=== PATIENT | female | born 1975 | race Caucasian/White ===

== ENCOUNTER → 2018-08-17 14:51 | Outpatient (CLI) | payer MEDICAID, SELFPAY ==
[2018-08-21 08:29] LABS: HPV APTIMA, High Risk Negative (Negative)
== END ==
PROVIDERS: Visit Provider Obstetrics & Gynecology
DX: Z12.4 Encounter for screening for malignant neoplasm of cervix (principal)
CPT/HCPCS: 88175; G0145

== ENCOUNTER 2018-11-06 23:19 | Emergency (ER) | payer MEDICAID, SELFPAY ==
[2018-11-06 23:21] VITALS: BP 165/93; PULSE 95; RESP 18; TEMP 36.7; O2SAT 98; BMI 30.9
--- NOTE | 2018-11-06 23:28 | CT_ITS ---
HISTORY: PT STATED RT FLANK PAIN, HX OF KIDNEY STONES TECHNIQUE: Helically acquired images were obtained of the abdomen and pelvis without oral or IV contrast as per renal stone protocol. A radiation dose optimization technique was used for this scan. IV Contrast dosage and agent: None. Oral contrast: None. COMPARISON: None FINDINGS: # of images incl. paperwork: [id number] LOWER CHEST: Lung bases are clear. No cardiomegaly or pericardial effusion observed. LIVER: Homogeneous. No focal mass. GALLBLADDER AND BILIARY TREE: No calcified gallstones. There is no gallbladder distension or wall edema. No intra- or extrahepatic biliary ductal dilation. KIDNEYS AND URETERS: Normal renal size and position. There is no hydronephrosis. 2 small (2 mm) nonobstructing stones lower pole left kidney. No other renal stones. ADRENAL GLANDS: Non-enlarged. SPLEEN: Normal size without focal cystic or solid mass. PANCREAS: No focal cystic or solid mass. BOWEL: No stomach or bowel distension. No focal inflammatory change observed. Normal appendix. Prominent stool. LYMPH NODES: No enlarged mesenteric or retroperitoneal lymph nodes. PERITONEUM: No ascites or free air. No other fluid collection. VESSELS: Aorta is non-dilated. URINARY BLADDER: Incompletely distended, otherwise grossly unremarkable. REPRODUCTIVE ORGANS: Uterus and ovaries with unremarkable noncontrast CT appearance. Physiologic ovarian cysts, greater on the left. ABDOMINAL WALL: No discrete abdominal or pelvic wall hernia observed. BONES: No lytic or blastic abnormality observed. CT/Abdomen/Pelvis without Cont IMPRESSION: No acute findings. Small nonobstructing left renal stones. Prominent stool, please correlate for constipation. Individualized dose optimization techniques were used for this CT. at 0023 Reported and signed by: Wallace Delcid MD Electronically Signed: Wallace Delcid, at 0:22 EST Tel , Service support ,
--- NOTE | 2018-11-06 23:35 | ED.VISSUMM ---
- ER Visit Summary Date of Service: 11/06/18 Chief Complaint: Flank pain History of Present Illness: The patient is a 43 F with remote history of kidney stone presents to the emergency department flank pain. Patient states that she had a dull ache in her right back this morning. She states throughout the day it worsens. It has been rather constant over the past 30 minutes. She has been nauseated without vomiting. She is never required lithotripsy or stenting. She denies any hematuria, dysuria, or trouble urinating. She denies any fevers or chills. Physical Examination: Vital signs reviewed General: Well-nourished, well-developed Head: Normocephalic, atraumatic Eyes: Pupils equal and reactive, extraocular muscles intact Neck, supple, no lymphadenopathy Heart: Regular rate and rhythm Respiratory: No distress, clear bilaterally Abdomen: Soft, nontender, nondistended, no peritoneal signs Back: Nontender Extremities: Nontender, no edema, no cords Skin: Normal color no rash Neuro: Alert and oriented, no focal or lateralizing deficits Test Results: [] Emergency Department Course and Treatment: The patient presents with right-sided flank pain has a history of kidney stones. IV was established. She was initially was given fluids, antiemetics, and anti-inflammatories. She still had persistent pain. Her pain was redressed and she was feeling improved. Screening labs are unremarkable. CT does not show any definitive stone within the ureter, no evidence of hydronephrosis, and no fluid. She does have some small stones still within the kidney. Her urine does show evidence of infection. My suspicion is that she is likely an early pyelonephritis. She has not had fever or chills. Her urine will be cultured. Given antibiotic allergies, the patient will be started on Cipro. She is given her first dose here. I do feel that she is safe for outpatient therapy. She will be continued on antibiotics and analgesics. She was counseled on concerning symptoms and reasons to return. I did instruct her that she needs to be reevaluated within 48 hours if she is not improving she needs to return to the emergency department. She is comfortable with this plan of care and will be discharged. Treatment Plan: [] Disposition: Discharge Impression: Pyelonephritis This note was generated with [employer] software. It may contain incorrect words, spelling, and punctuation that were not noted in review of the chart prior to signing ED Disposition - Plan for ED Patient: Instructions: ED Kidney Infec Female Prescriptions: Hydrocodone Bitart/Apap 5-325 [[place] 5MG-325MG] 1 tab PO Q4H PRN PRN 2 Days #10 tab PRN Reason: Pain Ciprofloxacin [Cipro] 500 mg PO BID #14 tab Referrals: NOT,DEFINED [NON-STAFF] -
[2018-11-06] MEDS: 0.9% Normal Saline 1,000 ML 1000 ML IV (23:38)
[2018-11-06] MEDS: Ketorolac 30 MG/ML Syringe IV (23:38)
[2018-11-06] MEDS: Ondansetron 4 MG/2 ML Vial IV (23:38)
[2018-11-07 00:16] LABS: Anion Gap 10 (5-15); BUN 13 mg/dL (7-18); BUN/Creat Ratio 17.6 RATIO (10-20); Calcium,Total 8.5 mg/dL (8.5-10.1); Chloride 105 mmol/L (98-107); Creatinine, Serum 0.74 mg/dL (0.55-1.02); EST Glomerular Filtration Rate 92 mL/min (>60); Est Glom Filt Rate - Afr Amer 111 mL/min (>60); Estimated Creatinine Clearance 81.92 ml/min; Glucose 144 mg/dL (74-106); Potassium 3.9 mmol/L (3.5-5.1); Sodium Level 137 mmol/L (136-145)
[2018-11-07 00:17] LABS: Hematocrit 40.4 % (37-47); Hemoglobin 13.6 g/dl (12.0-15.0); Mean Corpuscular Volume 90.6 fL (81-99); Red Blood Count 4.46 M/mm3 (4.2-5.4); White Blood Count 10.3 K/mm3 (4.4-11.0)
[2018-11-07 00:18] LABS: Lymphocyte % 31.9 % (19-41); Mean Corp Hgb Conc 33.7 g/gl (32-36); Mean Corpuscular Hgb 30.5 pg (27.0-32.0); Mean Platelet Vol. 9.3 fl (6.2-12.0); Neutrophil % 60.4 % (47-70); POSITIVE COUNT NO; POSITIVE DIFFERENTIAL NO; POSITIVE MORPHOLOGY NO; Platelet Count 284 K/mm3 (150-450); RBC Distribution Width CV 13.7 % (11.6-14.6); RBC Distribution Width SD 44.9 fl (35.1-43.9)
[2018-11-07 00:19] LABS: Absolute Lymphocyte Count 3.29 X10^3/ul (0.83-4.51); Absolute Neutrophil Count 6.2 X10^3/uL (2.0-7.7); Basophil# 0.02 X10^3/uL; Basophil% 0.2 % (0-1); Eosinophil# 0.14 X10^3/uL; Eosinophils% 1.4 % (0-5); Lymphocyte # 3.29 X10^3/ul (4.0); Monocyte% 5.8 % (0-10); Neutrophil # 6.22 X10^3/uL (2.7-7.7)
[2018-11-07] MEDS: Morphine 4 MG/ML Syringe IV (00:24)
[2018-11-07 00:44] LABS: Mucous, Urine 0 SEEN /hpf (<or=2+)
[2018-11-07 00:46] LABS: Color, Urine Yellow (Yellow); Glucose, Dipstick Normal (Normal); Ketone-Dipstick Negative (Negative); Leukocyte Esterase-Dipstick 500 /ul (Negative); Nitrite-Dipstick Positive (Negative); Occult Blood-Urine 25 /ul (Negative); Protein-Dipstick Negative (Negative); Urine Bilirubin Dipstick Negative (Negative); Urine Clarity Cloudy (Clear); Urine Urobilinogen Normal (Normal)
[2018-11-07 00:59] LABS: Bacteria 2+ /hpf (None Seen); Red Blood Cells-Urine 0-5 SEEN /hpf (0-5); Squamous Epithelial Cells - UA 10-25 SEEN /hpf (5-10); White Blood Cells 25-50 SEEN /hpf (0-5)
[2018-11-07] MEDS: HYDROmorphone 1 MG/ML Syringe IV (01:01)
[2018-11-07] MEDS: Ciprofloxacin 400 MG/200 ML BAG 200 MG IV (01:05)
[2018-11-07 02:52] VITALS: BP 140/96; PULSE 82; RESP 16; O2SAT 97
== END 2018-11-07 02:52 | disposition home or self-care (01) ==
LOC: ED 23:44
PROVIDERS: Emergency Provider Emergency Medicine
DX: N12 Tubulo-interstitial nephritis, not specified as acute or chronic (principal); F32.9 Major depressive disorder, single episode, unspecified; Z87.442 Personal history of urinary calculi; Z72.0 Tobacco use
CPT/HCPCS: 74176; 80048; 81001; 85025; 87086; 87088; 87186; 96361; 96365; 96375; 99284; J7030; A4216; J0744; J2405

== ENCOUNTER 2018-11-14 00:17 | Emergency (ER) | payer MEDICAID, SELFPAY ==
[2018-11-14 00:20] VITALS: BP 171/99; PULSE 82; RESP 20; TEMP 36.7; O2SAT 97; BMI 31.4
[2018-11-14 00:48] VITALS: BP 171/99; PULSE 82; RESP 20; TEMP 36.7; O2SAT 97
[2018-11-14] MEDS: Ketorolac 30 MG/ML Syringe IV (01:00)
[2018-11-14] MEDS: 0.9% Normal Saline 1,000 ML 1000 ML IV (01:00)
[2018-11-14] MEDS: Ondansetron 4 MG/2 ML Vial IV (01:00)
[2018-11-14] MEDS: Morphine 4 MG/ML Syringe IV (01:00)
[2018-11-14 01:10] LABS: Absolute Lymphocyte Count 3.54 X10^3/ul (0.83-4.51); Absolute Neutrophil Count 6.6 X10^3/uL (2.0-7.7); Basophil# 0.02 X10^3/uL; Basophil% 0.2 % (0-1); Eosinophil# 0.15 X10^3/uL; Eosinophils% 1.4 % (0-5); Hemoglobin 13.2 g/dl (12.0-15.0); Lymphocyte # 3.54 X10^3/ul (4.0); Mean Corpuscular Hgb 29.9 pg (27.0-32.0); Mean Corpuscular Volume 90.7 fL (81-99); Monocyte# 0.44 X10^3/uL; Monocyte% 4.1 % (0-10); Neutrophil # 6.55 X10^3/uL (2.7-7.7); Neutrophil % 61.1 % (47-70); Platelet Count 251 K/mm3 (150-450); RBC Distribution Width CV 13.9 % (11.6-14.6); RBC Distribution Width SD 46.4 fl (35.1-43.9); Red Blood Count 4.41 M/mm3 (4.2-5.4); White Blood Count 10.7 K/mm3 (4.4-11.0)
[2018-11-14 01:19] LABS: Anion Gap 7 (5-15); BUN 20 mg/dL (7-18); BUN/Creat Ratio 26.8 RATIO (10-20); Calcium,Total 8.8 mg/dL (8.5-10.1); Chloride 106 mmol/L (98-107); Creatinine, Serum 0.74 mg/dL (0.55-1.02); EST Glomerular Filtration Rate 91 mL/min (>60); Est Glom Filt Rate - Afr Amer 110 mL/min (>60); Estimated Creatinine Clearance 81.92 ml/min; Glucose 112 mg/dL (74-106); POSITIVE COUNT NO; POSITIVE DIFFERENTIAL NO; POSITIVE MORPHOLOGY NO; Potassium 4.1 mmol/L (3.5-5.1); Sodium Level 139 mmol/L (136-145)
[2018-11-14 02:01] LABS: Bacteria 0 SEEN /hpf (None Seen); Mucous, Urine 0 SEEN /hpf (<or=2+)
[2018-11-14 02:08] LABS: Color, Urine Yellow (Yellow); Glucose, Dipstick Normal (Normal); Ketone-Dipstick Negative (Negative); Leukocyte Esterase-Dipstick 25 /ul (Negative); Nitrite-Dipstick Negative (Negative); Occult Blood-Urine 25 /ul (Negative); Protein-Dipstick Negative (Negative); Urine Bilirubin Dipstick Negative (Negative); Urine Clarity Sl. Cloudy (Clear); Urine Urobilinogen Normal (Normal)
[2018-11-14 02:15] VITALS: TEMP 36.7
[2018-11-14 02:23] LABS: Red Blood Cells-Urine 0 SEEN /hpf (0-5); Squamous Epithelial Cells - UA 0-5 SEEN /hpf (5-10); White Blood Cells 0-5 SEEN /hpf (0-5)
[2018-11-14 03:00] VITALS: BP 144/85; PULSE 86; RESP 15; TEMP 36.8; O2SAT 97; O2SAT 98
--- NOTE | 2018-11-14 03:07 | ED.VISSUMM ---
- ER Visit Summary Date of Service: 11/14/18 Chief Complaint: [] Right-sided back pain History of Present Illness: The patient is a 43 F plan right-sided back pain on and off for last 2 days worse over the last hour. Is intermittent sharp pain. She was seen in the emergency department had a E. coli pyelonephritis on the eighth of this month. She is on 5 days of ciprofloxacin. She did not take yesterday. She took one [place] this morning for pain in her back. She had a CAT scan done that showed no kidney stones on that side. She had 2 small kidney stones on the opposite side. She does have a history of kidney stones in the past and wanted to make sure that she did not have one tonight. She thought she had one on the right side on her previous CAT scan. Physical Examination: Vital signs reviewed General: Well-nourished well-developed Head: Normocephalic atraumatic Eyes: Pupils equal round and reactive to light extraocular movements intact ENT: TMs clear no hemotympanum no trauma Neck: Nontender full range of motion Cardiovascular: Regular rate rhythm no murmurs normal S1-S2 Respiratory: No distress clear to auscultation bilaterally chest nontender Abdomen: Soft nontender nondistended normal bowel sounds no masses Back: There is right paraspinal thoracic and lumbar paraspinal Extremities: Nontender active range of motion ?4 extremities no trauma Skin: Normal color no trauma Neuro alert oriented cranial nerves II through XII intact normal strength sensation reflexes Test Results: [] Emergency Department Course and Treatment: [] Patient given IV fluids morphine Toradol and Zofran. CBC chemistry normal except BUN 20. Urinalysis positive leuks only. No white blood cells. No red blood cells. No bacteria. At this time I think it is more musculoskeletal. She could be having some back pain from her previous [place]. I feel that it is not a new [place] or kidney stone. I feel she can follow-up as an outpatient. She felt better after treatment. Treatment Plan: [] Disposition: [] Impression: [] Right-sided back pain This note was generated with alooma dictation software. It may contain incorrect words, spelling, and punctuation that were not noted in review of the chart prior to signing ED Disposition - Plan for ED Patient: Referrals: Care Physician,No Primary [Primary Care Provider] -
--- NOTE | 2018-11-14 03:09 | ED.DEP ---
ED Disposition - Plan for ED Patient: Disposition: Home or Assisted Living Instructions: Relieving Back Pain Referrals: Care Physician,No Primary [Primary Care Provider] - Dusty Shah DO [NON CLINICAL AFFILIATE] -
--- NOTE | 2018-11-14 03:40 | ED.RN ---
PT GIVEN WRITTEN AND DISCHARGE INSTRUCTIONS. PT REPORTS THAT HER MOTHER IS COMING TO PICK HER UP.
== END 2018-11-14 03:42 | disposition home or self-care (01) ==
PROVIDERS: Emergency Provider Emergency Medicine
DX: M54.9 Dorsalgia, unspecified (principal); Z87.442 Personal history of urinary calculi; Z72.0 Tobacco use
CPT/HCPCS: 80048; 81001; 85025; 96361; 96374; 96375; 99282; J7030; A4216; J2405

== ENCOUNTER → 2019-09-01 11:48 | Outpatient (CLI) | payer MEDICAID, SELFPAY | PROVIDERS: Visit Provider Obstetrics & Gynecology | DX: R30.0 Dysuria (principal) | CPT/HCPCS: 87077; 87086; 87088; 87186 ==

== ENCOUNTER → 2020-10-05 13:31 | Outpatient (CLI) | payer MEDICAID, SELFPAY ==
[2020-10-10 10:18] LABS: HPV Reflexed? NOT INDICATED
== END ==
PROVIDERS: Visit Provider Obstetrics & Gynecology
DX: Z12.4 Encounter for screening for malignant neoplasm of cervix (principal)
CPT/HCPCS: 88175; G0145

== ENCOUNTER 2021-09-10 22:02 | Emergency (ER) | payer MEDICAID, SELFPAY ==
[2021-09-10 22:06] VITALS: BP 177/74; PULSE 80; RESP 16; TEMP 36.3; O2SAT 97; BMI 29.7
[2021-09-10 22:09] VITALS: BP 177/74; PULSE 80; RESP 16; TEMP 36.3; O2SAT 97
[2021-09-10 22:45] LABS: Bacteria 0 SEEN /hpf (None Seen); Mucous, Urine 0 SEEN /hpf (<or=2+)
[2021-09-10 22:50] LABS: Color, Urine Yellow (Yellow); Glucose, Dipstick Normal (Normal); Ketone-Dipstick Negative (Negative); Leukocyte Esterase-Dipstick 100 /ul (Negative); Nitrite-Dipstick Negative (Negative); Occult Blood-Urine 50 /ul (Negative); Protein-Dipstick 30 mg/dl (Negative); Specific Gravity, Urine 1.015 (1.002-1.030); Urine Bilirubin Dipstick Negative (Negative); Urine Clarity Sl. Cloudy (Clear); Urine Urobilinogen Normal (Normal)
[2021-09-10 23:00] LABS: Squamous Epithelial Cells - UA 10-25 SEEN /hpf (5-10); White Blood Cells 5-10 SEEN /hpf (0-5)
[2021-09-10 23:01] LABS: Red Blood Cells-Urine 0-5 SEEN /hpf (0-5)
--- NOTE | 2021-09-10 23:21 | EDS_ITS ---
HPI HPI - Female History of Present Illness Chief Complaint: Complaint Narrative Narrative: 46-year-old female presenting with dysuria and right-sided pelvic pain. She states that she has had a UTI and has been on Keflex for 4 days although her pain is increasing in her urethral area and now it started to hurt in the right side of her pelvis. She not had a fever, chills. She does admit to some mild nausea. No constipation or diarrhea. She does have a history of kidney stones in the past. PFSH PFSH Medical History Depression UTI (urinary tract infection) Home Medications cetirizine [Zyrtec] 10 mg PO DAILY 11/07/18 [History Last Taken Unknown] sertraline [Zoloft] 100 mg PO DAILY 11/07/18 [History Last Taken Unknown] norgestimate-ethinyl estradiol 1 tab PO DAILY 09/10/21 [History Last Taken Unknown] hydrocodone-acetaminophen 1 tab PO Q6H 3 Days #12 tablet 09/11/21 [Rx Last Taken Unknown] phenazopyridine [Pyridium] 200 mg PO BID PRN PRN #10 tab 09/11/21 [Rx Last Taken Unknown] Allergy/AdvReac Type Severity Reaction Status Date / Time amoxicillin [Amoxicillin] Allergy Rash Verified 09/10/21 22:04 cefazolin Allergy Vomiting Verified 09/10/21 22:04 Sulfa (Sulfonamide Allergy Hives Verified 09/10/21 22:04 Antibiotics) ciprofloxacin [From Cipro] AdvReac Vomiting Verified 09/10/21 22:04 Social History Smoking Status: Current every day smoker tobacco type: cigarettes ROS ROS ED Constitutional Constitutional ED: Denies chills or fever(s) Eyes Eyes: Denies blurry vision ENT ENT ED: Denies rhinorrhea or sore throat Cardiovascular Cardiovascular: Denies chest pain or palpitations Respiratory/Chest Respiratory/Chest: Denies cough or dyspnea Gastrointestinal Gastrointestinal: Reports abdominal pain and nausea; Denies constipation, diarrh ea or vomiting Genitourinary Genitourinary ED: Reports dysuria and urinary frequency Musculoskeletal Musculoskeletal: Denies myalgias Integumentary Denies rash Neurologic Neurologic: Denies headache(s) or paresthesias Psychiatric Psychiatric: Denies anxiety or depression EXAM Physical Exam Const Vital Signs: 09/10/21 22:06 09/10/21 22:09 Temperature 97.4 F L 97.4 F L Temperature Source Temporal Temporal Pulse Rate 80 80 Respiratory Rate 16 16 Blood Pressure 177/74 H 177/74 H Blood Pressure Mean 108 108 Pulse Ox 97 97 Positive well nourished HEENT Reports moist mucous membranes Negative for trauma Eyes PERRL and EOMs intact bilaterally Resp normal respiratory effort Cardio regular rate and regular rhythm GI GI Narrative: Tenderness palpation right flank and right posterior lumbar paraspinal musculature. Palpation: tender Back/Spine General Back: CVA tenderness right Extremity normal to inspection Neuro oriented x3 Sensorium / Orientation: alert Psych mental status grossly normal Skin no rashes or lesions noted MDM MDM MDM Narrative Medical decision making narrative: I checked the patient's urinalysis and I do not see any sign of infection although there is occult blood. Patient has a history of kidney stones and I did obtain lab work and she has no leukocytosis. Hemoglobin hematocrit are stable. Renal function electrolytes are normal. CT of the abdomen pelvis without contrast is performed and shows no acute intra- abdominal pathology. Patient still complaining of dysuria after urinating again. I suspect maybe she passed a kidney stone. Patient will be given pain medication for home and she will be given follow-up with urology. Impression: 1. Dysuria 2. Past kidney stone Lab Data Labs: Laboratory Results - last 24 hr 09/10/21 09/10/21 09/10/21 22:30 23:44 23:44 WBC 8.4 RBC 4.15 L Hgb 12.5 Hct 38.0 MCV 91.6 MCH 30.1 MCHC 32.9 RDW Std Deviation 42.5 RDW Coeff of Wan 12.7 Plt Count 262 MPV 8.8 Immature Gran % (Auto) 0.400 Neut % (Auto) 58.0 Lymph % (Auto) 34.2 [place] % (Auto) 5.1 Eos % (Auto) 1.9 Baso % (Auto) 0.4 Absolute Neuts (auto) 4.9 Absolute Lymphs (auto) 2.87 Nucleated RBC % 0 Sodium 142 Potassium 3.8 Chloride 110 H Carbon Dioxide 27.0 Anion Gap 5 BUN 17 Creatinine 0.77 Estim Creat Clear Calc 76.32 Est GFR (MDRD) Af Amer 104 Est GFR (MDRD) Non-Af 86 BUN/Creatinine Ratio 22.1 H Glucose 125 H Calcium 8.6 Urine Color Yellow Urine Clarity Sl. Cloudy Urine pH 7.0 Ur Specific [place] 1.015 Urine Protein 30 H Urine Glucose (UA) Normal Urine Ketones Negative Urine Occult Blood 50 H Urine Nitrite Negative Urine Bilirubin Negative Urine Urobilinogen Normal Ur Leukocyte Esterase 100 H Urine RBC 0-5 SEEN Urine WBC 5-10 SEEN Ur Squamous Epith Cells 10-25 SEEN Urine Bacteria 0 SEEN Urine Mucus 0 SEEN Radiography Diagnostic Testing: Clinical Impression(s) from Imaging Studies Abdomen/Pelvis CT 09/11/21 23:06 IMPRESSION: Nonobstructive stone measuring 2.1 mm within the lower pole of the left kidney. Otherwise normal bilateral kidneys. No acute appendicitis or bowel obstruction. Electronically Signed: Jennifer Perry MD at 0:53 EST , Service support , Discharge Plan Triage Chief Complaint: Complaint ED Provider: Levi Barajas Dx/Rx/DC Orders Instructions: ED Kidney Stone, Passed Prescriptions: New phenazopyridine [Pyridium] 200 mg tablet 200 mg PO BID PRN PRN (Reason: Pain) Qty: 10 RF: 0 hydrocodone-acetaminophen 5-325 mg tablet 1 tab PO Q6H 3 Days Qty: 12 RF: 0 No Action sertraline [Zoloft] 100 MG tablet 100 mg PO DAILY RF: 0 Zyrtec 10 MG capsule 10 mg PO DAILY RF: 0 norgestimate-ethinyl estradiol 0.18/0.215/0.25 mg-35 mcg (28) tablet 1 tab PO DAILY RF: 0 Primary Care Provider: Care Physician,No Primary Referrals: Terry Massey MD [STAFF PHYSICIAN] - As soon as possible Care Physician,No Primary [Primary Care Provider] - Disposition Disposition: Home, Self Care Discharge Date/Time: 09/11/21 01:45
[2021-09-10 23:49] LABS: Absolute Lymphocyte Count 2.87 X10^3/uL (0.83-4.51); Absolute Neutrophil Count 4.9 X10^3/uL (2.0-7.7); Basophil# 0.03 X10^3/uL; Basophil% 0.4 % (0-1); Eosinophil# 0.16 X10^3/uL; Eosinophils% 1.9 % (0-5); Hemoglobin 12.5 g/dL (12.0-15.0); Lymphocyte # 2.87 X10^3/ul (0.83-4.51); Lymphocyte % 34.2 % (19-41); Mean Corp Hgb Conc 32.9 g/dL (32-36); Mean Corpuscular Hgb 30.1 pg (27.0-32.0); Mean Corpuscular Volume 91.6 fL (81-99); Mean Platelet Vol. 8.8 fl (6.2-12.0); Monocyte# 0.43 X10^3/uL; Monocyte% 5.1 % (0-10); NRBC Flagged by Analyzer 0 % (0-5); Neutrophil # 4.87 X10^3/uL (2.7-7.7); Platelet Count 262 K/mm3 (150-450); RBC Distribution Width CV 12.7 % (11.6-14.6); RBC Distribution Width SD 42.5 fl (35.1-43.9); Red Blood Count 4.15 M/mm3 (4.2-5.4); White Blood Count 8.4 K/mm3 (4.4-11.0)
[2021-09-10] MEDS: Morphine 4 MG/ML Syringe IV (23:50)
[2021-09-10] MEDS: Ondansetron 4 MG/2 ML Vial IV (23:50)
[2021-09-10] MEDS: Ketorolac 15 MG/ML Vial IV (23:50)
[2021-09-11 00:08] LABS: Anion Gap 5 (5-15); BUN 17 mg/dL (7-18); BUN/Creat Ratio 22.1 RATIO (10-20); Calcium,Total 8.6 mg/dL (8.5-10.1); Chloride 110 mmol/L (98-107); Creatinine, Serum 0.77 mg/dL (0.55-1.02); EST Glomerular Filtration Rate 86 mL/min (>60); Est Glom Filt Rate - Afr Amer 104 mL/min (>60); Estimated Creatinine Clearance 76.32 ml/min; Glucose 125 mg/dL (74-106); Potassium 3.8 mmol/L (3.5-5.1); Sodium Level 142 mmol/L (136-145)
[2021-09-11] MEDS: Phenazopyridine 95 MG Tablet 190 MG PO (01:44)
[2021-09-11] MEDS: HYDROcodone Bitartrate/Apap 5/325 Tablet PO (01:44)
--- NOTE | 2021-09-11 23:06 | CT_ITS ---
STUDY: CT ABDOMEN AND PELVIS WITHOUT CONTRAST REASON FOR EXAM: Female, 46 years old. Kidney Stone RADIATION DOSAGE (If Supplied By Facility): CTDIvol = ( 9.07 ) mGy, DLP = ( 455.29 ) mGycm TECHNIQUE: Transaxial images were obtained from the dome of the diaphragm to the symphysis pubis without oral contrast, and without intravenous contrast. Sagittal and coronal images were reconstructed. Individualized dose optimization techniques were used for this CT. COMPARISON: 11/06/2018. FINDINGS: The visualized lung bases are unremarkable. The visualized portions of the heart are within normal limits. Normal liver. Normal gallbladder and extrahepatic biliary system. Normal spleen. Normal pancreas. Normal bilateral adrenal glands. Normal right kidney. Left lower renal pole stone measuring 3.1 mm. Otherwise normal left kidney. Normal visualized stomach. Normal small intestine. Moderate fecal debris within the colon. Otherwise normal colon. The appendix is visualized and appears normal. Normal abdominal aorta. Normal inferior vena cava. Normal retroperitoneum. Normal urinary bladder. Anteverted uterus. Normal abdominal wall. Normal osseous structures. CT/Abdomen/Pelvis without Cont IMPRESSION: Nonobstructive stone measuring 2.1 mm within the lower pole of the left kidney. Otherwise normal bilateral kidneys. No acute appendicitis or bowel obstruction. Electronically Signed: Jennifer Perry MD at 0:53 EST , Service support ,
== END 2021-09-11 01:45 | disposition home or self-care (01) ==
PROVIDERS: Emergency Provider Student in an Organized Health Care Education/Training Program
DX: N20.0 Calculus of kidney (principal); R30.0 Dysuria; Z87.442 Personal history of urinary calculi; F17.210 Nicotine dependence, cigarettes, uncomplicated; Z87.440 Personal history of urinary (tract) infections
CPT/HCPCS: 74176; 80048; 81001; 85025; 99284; A4216; J2405

== ENCOUNTER 2021-10-29 13:33 | Emergency (ER) | payer MEDICAID, SELFPAY ==
[2021-10-29 13:33] VITALS: BP 198/113; PULSE 83; RESP 20; TEMP 36.3; O2SAT 100; BMI 32.4
[2021-10-29 13:46] VITALS: BP 178/89; PULSE 79; RESP 18; TEMP 36.9; O2SAT 100
--- NOTE | 2021-10-29 14:32 | CT_ITS ---
STUDY: CTA CHEST REASON FOR EXAM: Female, 46 years old. Shortness of breath, COVID 2 weeks RADIATION DOSAGE (If Supplied By Facility): CTDIvol = ( 15.81 ) mGy, DLP = ( 434.13 ) mGycm TECHNIQUE: The examination was performed with the intravenous administration of IV 100mL Isovue-370. Post-processing of the angiographic images was performed, with multiplanar reformation and 3D reconstruction. Individualized dose optimization techniques were used for this CT. COMPARISON: None. FINDINGS: Normal enhancement of the main pulmonary artery and right and left pulmonary arteries. Normal enhancement of the bilateral peripheral pulmonary arteries. There is no demonstrated pulmonary embolism. Normal thoracic aorta and visualized great vessels. There is no demonstrated aortic dissection. Normal heart and pericardium. Mildly enlarged mediastinal lymph nodes without dominant lin mass, likely reactive adenopathy. No dominant hilar lin mass. Normal visualized trachea and bronchi. The lungs are well expanded. Central localized groundglass opacities and mild interstitial thickening noted multiple pulmonary lobes, upper more than lower lung zones. No cavitating process. Normal pleura. Normal chest wall structures. No destructive bony process. Hepatic steatosis of the liver is partially visualized. CT/CTA Chest W/WO Contrast IMPRESSION: 1. No central or segmental pulmonary embolism. 2. Multifocal infiltrates with features commonly reported with COVID pneumonia. Electronically Signed: Bryan Dee MD ([place]) at 16:05 EST ,
--- NOTE | 2021-10-29 14:33 | EKG12_ITS ---
Test Reason : SOB Blood Pressure : / mmHG Vent. Rate : 076 BPM Atrial Rate : 076 BPM P-R Int : 142 ms QRS Dur : 086 ms QT Int : 370 ms P-R-T Axes : -11 -14 002 degrees QTc Int : 416 ms Normal sinus rhythm Normal ECG Confirmed by JEFF CHIU, ANAMARIA ([id number]), production editor DARRON RESTREPO ([id number]) on 10/30/2021 8:41:21 AM Referred By: VALARIE Confirmed By:ANAMARIA AGUILAR MD
--- NOTE | 2021-10-29 14:35 | ED.VIS.CHEST ---
HPI History of Present Illness Chief Complaint: Shortness of Breath Narrative Narrative: 46-year-old female presenting with chest pain. She states it is pressure-like and retrosternal. It does not radiate. Is not worse with exertion. Patient denies any cardiac history. Patient states that he had COVID-19 about 2 weeks ago. She is on control as well. She was seen by the urgent care earlier this week for a UTI and is on Keflex currently. Is not planning any urinary symptoms. Patient also states that she was seen today in the urgent care where they were concerned she might have developed a blood clot. She is not describing sharp or pleuritic chest pain. She is not hypoxic. Patient states that she is not having nausea or vomiting. She states that she does have a lot of stress because this is the anniversary of her father's and her cat last night. [facility] Medical History COVID-19 Depression Kidney stone UTI (urinary tract infection) Home Medications cetirizine [Zyrtec] 10 mg PO DAILY 11/07/18 [History Last Taken Unknown] sertraline [Zoloft] 100 mg PO DAILY 11/07/18 [History Last Taken Unknown] norgestimate-ethinyl estradiol 1 tab PO DAILY 09/10/21 [History Last Taken Unknown] cephalexin 500 mg PO BID 10/29/21 [History Last Taken Unknown] Allergy/AdvReac Type Severity Reaction Status Date / Time amoxicillin [Amoxicillin] Allergy Rash Verified 09/10/21 22:04 cefazolin Allergy Vomiting Verified 09/10/21 22:04 Sulfa (Sulfonamide Allergy Hives Verified 09/10/21 22:04 Antibiotics) ciprofloxacin [From Cipro] AdvReac Vomiting Verified 09/10/21 22:04 Social History Smoking Status: Current every day smoker tobacco type: cigarettes ROS ROS ED ROS Narrative Fatigue Constitutional Constitutional ED: Denies fever(s) or sweats Eyes Eyes: Denies none or blurry vision ENT ENT ED: Denies ear pain or sore throat Cardiovascular Cardiovascular: Reports as per HPI Respiratory/Chest Respiratory/Chest: Reports dyspnea; Denies cough or dyspnea on exertion Gastrointestinal Gastrointestinal: Denies abdominal pain, nausea or vomiting Genitourinary Genitourinary ED: Denies dysuria or hematuria Musculoskeletal Musculoskeletal: Denies arthralgias or myalgias Integumentary Denies abscess or rash Neurologic Neurologic: Denies headache(s) or paresthesias Psychiatric Psychiatric: Reports anxiety EXAM Physical Exam Const Vital Signs: 10/29/21 13:33 10/29/21 13:46 10/29/21 14:37 Temperature 97.4 F L 98.4 F 98.4 F Temperature Source Temporal Temporal Oral Pulse Rate 83 79 77 Respiratory Rate 20 H 18 16 Respiratory Effort Short of Breath Respiratory Depth Shallow Respiratory Pattern Normal Blood Pressure 198/113 H 178/89 H 145/78 H Blood Pressure Mean 141 118 100 Pulse Ox 100 100 97 Oxygen Delivery Method Room Air Room Air Room Air 10/29/21 15:33 10/29/21 17:04 Temperature 98.2 F 98.4 F Temperature Source Temporal Temporal Pulse Rate 78 88 Respiratory Rate 16 16 Respiratory Effort Respiratory Depth Respiratory Pattern Blood Pressure 155/89 H 149/55 H Blood Pressure Mean 111 86 Pulse Ox 98 98 Oxygen Delivery Method Room Air Room Air Positive obese General Appearance ED: NAD; Negative for pallor Nutritional Appearance: obese HEENT Reports moist mucous membranes normocephalic and atraumatic Eyes EOMs intact bilaterally General Eye ED: Negative for pale conjunctiva or scleral icterus Neck no lymphadenopathy and supple Chest Wall inspection of chest normal and palpation of chest normal Resp normal respiratory effort and clear to auscultation bilaterally Auscultation: Negative for rales, rhonchi or wheezes Cardio regular rate and regular rhythm Extremity normal to inspection General Extremety ED: Negative for edema or tenderness General Extremity: Negative for edema Neuro oriented x3 Sensorium / Orientation: awake and alert Psych mental status grossly normal Mood & Affect: anxious Skin no rashes or lesions noted General Skin Exam: Negative for jaundice or pallor Heart Score History: Slightly/Non-Suspicious ECG: Normal Age: >45 - <65 years Risk Factors: No Risk Factors Troponin: </= Normal Limit Score: 1 MDM MDM MDM Narrative Medical decision making narrative: 46-year-old female presented with chest pain. She states been present for a few days and she previous had COVID 2 weeks ago and went to the urgent care who told her that she had a pulmonary embolism and told her to come immediately to the emergency room. Patient has no history of DVT/PE. She has no risk factors except for Covid. Technically I could use the PERC criteria to rule her out, although she had recently had COVID-19. Patient has no cardiac history. She states she does not have pulmonary history. She does feel like she may have some anxiety given that its the anniversary of her father's and her cat . Her EKG on my interpretation shows a normal sinus rhythm with a ventricular to 76 bpm without signs of ischemic change or dysrhythmia. CBC and BMP are unremarkable. High-sensitivity troponin initially is 22 and the delta troponin at 2 hrs is also 22. I do believe this effectively rules out ACS in this patient. CTA of the chest is performed which does show multifocal infiltrates consistent with her recent diagnosis of COVID-19. Again she is 98 to 100% on room air, respiratory rate 16, pulse 83 to 88 bpm. I feel she is stable to be discharged home. I will give her follow-up with a primary care physician. She is given return precautions. Impression: 1. Chest pain 2. Recent diagnosis of COVID-19 pneumonitis Lab Data Attestation: I reviewed the patient's lab results. Labs: Laboratory Results - last 24 hr 10/29/21 10/29/21 10/29/21 14:00 14:00 16:05 WBC 8.9 RBC 3.87 L Hgb 11.6 L Hct 33.7 L MCV 87.1 MCH 30.0 MCHC 34.4 RDW Std Deviation 41.4 RDW Coeff of Wan 13.2 Plt Count 320 MPV 9.2 Immature Gran % (Auto) 0.300 Neut % (Auto) 66.1 Lymph % (Auto) 27.0 [place] % (Auto) 5.2 Eos % (Auto) 1.1 Baso % (Auto) 0.3 Absolute Neuts (auto) 5.8 Absolute Lymphs (auto) 2.39 Nucleated RBC % 0 Sodium 137 Potassium 3.8 Chloride 107 Carbon Dioxide 24.0 Anion Gap 6 BUN 10 Creatinine 0.63 Estim Creat Clear Calc 93.28 Est GFR (MDRD) Af Amer 131 Est GFR (MDRD) Non-Af 109 BUN/Creatinine Ratio 15.9 Glucose 88 Calcium 8.8 Total Bilirubin 0.50 AST 12 L ALT 20 Alkaline Phosphatase 114 Troponin I High Sens 22 22 Total Protein 7.5 Albumin 3.2 Globulin 4.3 H Albumin/Globulin Ratio 0.7 L Radiography Diagnostic Testing: Clinical Impression(s) from Imaging Studies Chest CTA 10/29/21 14:32 IMPRESSION: 1. No central or segmental pulmonary embolism. 2. Multifocal infiltrates with features commonly reported with COVID pneumonia. Electronically Signed: Bryan Dee MD ([place]) at 16:05 EST Reading Location ID and State: [address] [place] [address] , Service support , Discharge Plan Triage Chief Complaint: Shortness of Breath ED Provider: Levi Barajas Dx/Rx/DC Orders Instructions: ED Chest Pain, Noncardiac Prescriptions: No Action sertraline [Zoloft] 100 MG tablet 100 mg PO DAILY RF: 0 Zyrtec 10 MG capsule 10 mg PO DAILY RF: 0 norgestimate-ethinyl estradiol 0.18/0.215/0.25 mg-35 mcg (28) tablet 1 tab PO DAILY RF: 0 cephalexin 500 mg capsule 500 mg PO BID RF: 0 Primary Care Provider: Care Physician,No Primary Referrals: Marley Tolentino MD [STAFF PHYSICIAN] - 3-5 Days Care Physician,No Primary [Primary Care Provider] - Disposition Disposition: Home, Self Care Discharge Date/Time: 10/29/21 17:12
[2021-10-29 14:37] VITALS: BP 145/78; PULSE 77; RESP 16; TEMP 36.9; O2SAT 97
[2021-10-29 14:45] LABS: Absolute Lymphocyte Count 2.39 X10^3/uL (0.83-4.51); Absolute Neutrophil Count 5.8 X10^3/uL (2.0-7.7); Basophil# 0.03 X10^3/uL; Basophil% 0.3 % (0-1); Eosinophils% 1.1 % (0-5); Hematocrit 33.7 % (37-47); Hemoglobin 11.6 g/dL (12.0-15.0); Lymphocyte # 2.39 X10^3/ul (0.83-4.51); Mean Corp Hgb Conc 34.4 g/dL (32-36); Mean Corpuscular Volume 87.1 fL (81-99); Mean Platelet Vol. 9.2 fl (6.2-12.0); Monocyte# 0.46 X10^3/uL; Monocyte% 5.2 % (0-10); NRBC Flagged by Analyzer 0 % (0-5); Neutrophil # 5.84 X10^3/uL (2.7-7.7); Neutrophil % 66.1 % (47-70); Platelet Count 320 K/mm3 (150-450); RBC Distribution Width CV 13.2 % (11.6-14.6); RBC Distribution Width SD 41.4 fl (35.1-43.9); Red Blood Count 3.87 M/mm3 (4.2-5.4); White Blood Count 8.9 K/mm3 (4.4-11.0)
[2021-10-29 15:07] LABS: ALB/GLOB Ratio 0.7 RATIO (0.9-2.4); AST(SGOT) 12 U/L (15-37); Alanine Aminotransfer ALT/SGPT 20 U/L (13-56); Albumin, Serum 3.2 g/dL (3.2-5.0); Alkaline Phosphatase 114 U/L (45-117); Anion Gap 6 (5-15); BUN 10 mg/dL (7-18); BUN/Creat Ratio 15.9 RATIO (10-20); Calcium,Total 8.8 mg/dL (8.5-10.1); Chloride 107 mmol/L (98-107); Creatinine, Serum 0.63 mg/dL (0.55-1.02); EST Glomerular Filtration Rate 109 mL/min (>60); Est Glom Filt Rate - Afr Amer 131 mL/min (>60); Estimated Creatinine Clearance 93.28 ml/min; Globulin 4.3 g/dL (2.2-4.2); Glucose 88 mg/dL (74-106); Potassium 3.8 mmol/L (3.5-5.1); Protein, Total 7.5 g/dL (6.4-8.2); Sodium Level 137 mmol/L (136-145); Troponin-I HS 22 pg/mL (3.0-54.0)
[2021-10-29 15:33] VITALS: BP 155/89; PULSE 78; RESP 16; TEMP 36.8; O2SAT 98
[2021-10-29 16:30] LABS: Troponin-I HS 22 pg/mL (3.0-54.0)
[2021-10-29 17:04] VITALS: BP 149/55; PULSE 88; RESP 16; TEMP 36.9; O2SAT 98
--- NOTE | 2021-10-30 11:40 | CASEMGMT ---
Addendum entered by Nona Cesar 10/30/21 13:06: NITESH MENDEZ ED follow-up: Patient returned call at this time. Patient reports continues to cough and didn't rest well last night. c/o ribs hurting related to persistent cough. Patient reports taking OTC Robitussin and ibuprofen without relief. Patient states she has been evaluated multiple times by different providers and I'm just not getting better. Patient encouraged to obtain pulse oximeter to monitor SpO2. Encouraged to drink water to stay hydrated. Patient instructed on red flag signs and symptoms to monitor for. Patient states does not have established PCP but provider with contact information listed on discharge instructions. Patient denies questions. NITESH Hobson CM Original Note: NITESH MENDEZ ED follow-up: Date of ER visit: 10/29/2021 ER presenting complaint: shortness of breath NITESH MENDEZ placed call to patient's telephone number listed on demographics, no answer. Voicemail left with call back information requesting call back if any questions, concerns or needs. NITESH Hobson CM
== END 2021-10-29 17:12 | disposition home or self-care (01) ==
PROVIDERS: Emergency Provider Student in an Organized Health Care Education/Training Program; Visit Provider Student in an Organized Health Care Education/Training Program
DX: R07.9 Chest pain, unspecified (principal); U07.1 COVID-19; F17.210 Nicotine dependence, cigarettes, uncomplicated; N39.0 Urinary tract infection, site not specified; J12.82 Pneumonia due to coronavirus disease 2019
CPT/HCPCS: 71275; 80053; 84484; 85025; 93005; 99284; Q9967; A4216

== ENCOUNTER 2022-11-16 15:56 | Emergency (ER) | payer MEDICAID, SELFPAY ==
[2022-11-16 15:57] VITALS: BP 208/117; PULSE 88; RESP 16; TEMP 36.7; O2SAT 98; BMI 34.2
--- NOTE | 2022-11-16 16:42 | EDS_ITS ---
HPI History of Present Illness Chief Complaint: Allergic Reaction Informant: patient Narrative Narrative: Patient is a 47-year-old female with history of anxiety and depression as well as UTIs presenting with anaphylaxis. Patient was cleaning her bathroom with bl each today. She notes she was not using a mask. She was using household bleach. She initially was spraying bleach onto the ground and then spilled up the bathtub with a mixture of water and bleach and was cleaning that. She started itching and got hives on her chest. She states is not particularly uncommon for her she is very prone to hives however she then had swelling of her tongue and could not even talk. She called 911 and came to the ER. Patient received IM epinephrine in route. Patient took 4 [id number] Benadryl as well as 20 mg of prednisone before the tongue swelling started. She notes she just refilled her regular medicines but states they are the same as always. Denies any other new foods medications or other exposures. Does have a history of anaphylaxis to Bactrim but that was long time ago and has not had any since. She has no other complaints at this time and notes she is feeling better after receiving epinephrine. Does not have an EpiPen at home. [facility] Medical History ADHD Anxiety COVID-19 Depression Kidney stone UTI (urinary tract infection) Home Medications cetirizine 10 mg capsule (Zyrtec) 10 mg PO DAILY 11/07/18 [History Last Taken Unknown] sertraline 100 mg tablet (Zoloft) 100 mg PO DAILY 11/07/18 [History Last Taken Unknown] norgestimate-ethinyl estradiol 0.18 mg/0.215mg/0.25mg-35 mcg(28)tablet 1 tab PO DAILY 09/10/21 [History Last Taken Unknown] cephalexin 500 mg capsule 500 mg PO BID 10/29/21 [History Last Taken Unknown] epinephrine 0.3 mg/0.3 mL injection, auto-injector (EpiPen 2-Rudi) 0.3 mg (0.3 mL) IM Q15M PRN anaphylaxis #2 ea 11/16/22 [Rx Last Taken Unknown] prednisone 20 mg tablet 40 mg PO DAILY #8 tabs 11/16/22 [Rx Last Taken Unknown] Allergy/AdvReac Type Severity Reaction Status Date / Time amoxicillin [Amoxicillin] Allergy Rash Verified 11/16/22 16:05 cefazolin Allergy Vomiting Verified 11/16/22 16:05 Sulfa (Sulfonamide Allergy Hives Verified 11/16/22 16:05 Antibiotics) ciprofloxacin [From Cipro] AdvReac Vomiting Verified 11/16/22 16:05 Social History Smoking Status: Current every day smoker tobacco type: cigarettes ROS ROS ED Constitutional Constitutional ED: Denies chills or fever(s) Eyes Eyes: Denies blurry vision ENT ENT ED: Reports other Details: Tongue swelling ; Denies sore throat Respiratory/Chest Respiratory/Chest: Reports dyspnea; Denies cough Gastrointestinal Gastrointestinal: Denies abdominal pain or vomiting Musculoskeletal Musculoskeletal: Denies arthralgias or myalgias Integumentary Reports rash Neurologic Neurologic: Denies headache(s) Psychiatric Psychiatric: Denies anxiety EXAM Physical Exam Const Vital Signs: 11/16/22 15:57 11/16/22 16:56 11/16/22 19:14 Temperature 98.1 F Temperature Source Oral Pulse Rate 88 89 88 Respiratory Rate 16 22 H 15 Blood Pressure 208/117 H 209/113 H 104/67 Blood Pressure Mean 147 145 79 Pulse Ox 98 98 99 Oxygen Delivery Method Room Air Room Air Room Air Positive well nourished and well developed General Appearance ED: well developed and NAD HEENT Reports moist mucous membranes HEENT Narrative: Normal phonation. Tongue appears appropriate size and I do not appreciate any angioedema. Normal uvula. Handling secretions well. No trismus. Neck supple and no JVD Chest Wall inspection of chest normal and palpation of chest normal Resp normal respiratory effort and clear to auscultation bilaterally Cardio regular rate, regular rhythm and no murmurs GI normal to inspection, nondistended, normoactive bowel sounds and non-tender Neuro oriented x3 Sensorium / Orientation: alert Motor Exam: Negative for general weakness Psych mental status grossly normal Mood & Affect: anxious Skin no wounds Skin Narrative: No urticaria. Patient does have some scattered erythema over her neck and chest. No petechia. MDM MDM MDM Narrative Medical decision making narrative: Patient is evaluated for what sounds like an anaphylactic reaction that was treated with epinephrine prior to arrival. Her symptoms have resolved. She currently does not have signs of anaphylaxis. Will monitor for 2 hours and given additional 20 mg of prednisone as well as a dose of IV Pepcid. The patient does not have recurrence of symptoms anticipate discharge home with a prescription for an EpiPen and further burst of prednisone. Patient is agreeable this plan of care. Discussed with patient that while bleach could cause this, and possible this could be a red taylor however she cannot think of any other exposures that could have caused this reaction today. Patient is monitored for 2 hours and has no further recurrence of her allergic symptoms. I will prescribe an EpiPen and prednisone. In addition now she is complained of a headache. She is a history of migraines. Is given IV Toradol but continues have a headache. He is then given IV fluids and Reglan. On repeat evaluation she has resolution of her symptoms and is ready to go home. Discharged home. Is given return precautions. Patient's hypertension also improved with migraine pain control and likely time as the epinephrine wore off. She has a normal neurologic exam and I do not think head imaging is indicated. Discharge Plan Triage Chief Complaint: Allergic Reaction ED Provider: Marjan Galeana Dx/Rx/DC Orders Clinical Impression: Allergic reaction, Migraine Prescriptions: New prednisone 20 mg tablet 40 mg PO DAILY Qty: 8 0RF epinephrine [EpiPen 2-Rudi] 0.3 mg/0.3 mL auto-injector 0.3 mg IM Q15M PRN (Reason: anaphylaxis) Qty: 2 0RF No Action sertraline [Zoloft] 100 MG tablet 100 mg PO DAILY Zyrtec 10 MG capsule 10 mg PO DAILY norgestimate-ethinyl estradiol 0.18/0.215/0.25 mg-35 mcg (28) tablet 1 tab PO DAILY cephalexin 500 mg capsule 500 mg PO BID Label Comments: take 1 capsule by mouth twice a day for 7 days Primary Care Provider: Care Physician,No Primary Referrals: Care Physician,No Primary [Primary Care Provider] - Activity Restrictions/Additional Instructions: Your work-up is largely normal. You been prescribed epinephrine to take if you develop another allergic reaction. Please follow-up with your primary care doctor. Avoid exposure to bleach. Return if you have a progression or recurrence of your symptoms. Call 911 or come to the emergency room immediately if you use your EpiPen. Disposition Disposition: Home, Self Care Discharge Date/Time: 11/16/22 20:55
[2022-11-16] MEDS: predniSONE 20 MG Tablet PO (16:47)
[2022-11-16] MEDS: Famotidine 200 MG/20 ML MDV 20 MG in 0.9% Normal Saline (Pres. free 8 ML 300 MG IV (16:48)
[2022-11-16 16:56] VITALS: BP 209/113; PULSE 89; RESP 22; O2SAT 98
[2022-11-16] MEDS: Ketorolac 15 MG/ML Vial IV (17:22)
[2022-11-16 19:14] VITALS: BP 104/67; PULSE 88; RESP 15; O2SAT 99
[2022-11-16] MEDS: Metoclopramide 10 MG/2 ML Vial 5 MG IV (19:14)
== END 2022-11-16 20:55 | disposition home or self-care (01) ==
PROVIDERS: Emergency Provider Emergency Medicine; Visit Provider Emergency Medicine
DX: T78.40XA Allergy, unspecified, initial encounter (principal); I10 Essential (primary) hypertension; F17.210 Nicotine dependence, cigarettes, uncomplicated; F41.9 Anxiety disorder, unspecified; G43.909 Migraine, unspecified, not intractable, without status migrainosus; F32.A Depression, unspecified; F90.9 Attention-deficit hyperactivity disorder, unspecified type; Z86.16 Personal history of COVID-19; Z87.440 Personal history of urinary (tract) infections; Z87.442 Personal history of urinary calculi
CPT/HCPCS: 96374; 96375; 99284; A4216; C1769; J3490

== ENCOUNTER 2022-12-05 16:25 | Emergency (ER) | payer MEDICAID, SELFPAY ==
[2022-12-05 16:27] VITALS: BP 167/140; PULSE 83; RESP 14; TEMP 36.5; O2SAT 97; BMI 35.8
--- NOTE | 2022-12-05 16:41 | EX.ED.DYSGE1 ---
HPI History of Present Illness Chief Complaint: Allergic Reaction Narrative Narrative: Patient is under a lot of stress. She was in the ED with her brother who was suicidal till late last night, she went into a store and developed some hives and then had difficulty breathing. She thought this may be an allergic reaction since she has had this in the past and gave herself an epinephrine shot. She arrives in the ED via EMS. She feels better other than she feels her heart beating heavily. She is also developing migraine which she has chronically. No current chest pain. No back pain or tearing sensation no abdominal pain. She has a normal voice. [facility] Medical History ADHD Anxiety COVID-19 Depression Kidney stone UTI (urinary tract infection) Home Medications cetirizine 10 mg capsule (Zyrtec) 10 mg PO DAILY 11/07/18 [History Last Taken Unknown] sertraline 100 mg tablet (Zoloft) 100 mg PO DAILY 11/07/18 [History Last Taken Unknown] norgestimate-ethinyl estradiol 0.18 mg/0.215mg/0.25mg-35 mcg(28)tablet 1 tab PO DAILY 09/10/21 [History Last Taken Unknown] cephalexin 500 mg capsule 500 mg PO BID 10/29/21 [History Last Taken Unknown] epinephrine 0.3 mg/0.3 mL injection, auto-injector (EpiPen 2-Rudi) 0.3 mg (0.3 mL) IM Q15M PRN anaphylaxis #2 ea 11/16/22 [Rx Last Taken Unknown] prednisone 20 mg tablet 40 mg PO DAILY #8 tabs 11/16/22 [Rx Last Taken Unknown] Allergy/AdvReac Type Severity Reaction Status Date / Time amoxicillin [Amoxicillin] Allergy Rash Verified 11/16/22 16:05 cefazolin Allergy Vomiting Verified 11/16/22 16:05 Sulfa (Sulfonamide Allergy Hives Verified 11/16/22 16:05 Antibiotics) ciprofloxacin [From Cipro] AdvReac Vomiting Verified 11/16/22 16:05 Social History Smoking Status: Current every day smoker tobacco type: cigarettes ROS ROS ED ROS Narrative Past medical history: Reviewed Medications: Reviewed Social history: Noncontributory Review of systems: All systems negative except as indicated General: No fever Eyes: No visual changes ENT: She thought her throat were closing Neck: No neck pain Cardiovascular: No chest pain Respiratory: She had difficulty breathing briefly. She has no current breathing difficulties Gastrointestinal: No abdominal pain, nausea vomiting or diarrhea Genitourinary: No dysuria Musculoskeletal: Denies myalgias no difficulty with ambulation Skin: No rash Neurological: No memory loss, confusion or any focal weakness Psych: Admits to being quite anxious Hematologic: No easy bleeding or easy bruising EXAM Physical Exam Narrative Exam Narrative: Physical exam Vitals are reviewed, she is hypertensive this is likely secondary to the epinephrine. General: Well nourished, Well developed, No Acute Distress Head: Normocephalic, Atraumatic Eyes: Conjunctiva not pale ENT: Moist mucous membranes Neck: Supple, Nontender, No lymphadenopathy Cardiovascular: Regular rate, Regular rhythm Respiratory: No distress, CTA bilaterally Abdomen: Soft, Nontender, Nondistended Back: Nontender, Normal Inspection. Negative for: CVA tenderness Extremities: Nontender, No edema Skin: Normal color, No rash Neurological: Alert, Normal Strength, Normal Sensation Psychological: Normal affect Const Vital Signs: 12/05/22 16:27 Temperature 97.7 F L Temperature Source Oral Pulse Rate 83 Respiratory Rate 14 Blood Pressure 167/140 H Blood Pressure Mean 149 Pulse Ox 97 Oxygen Delivery Method Room Air MDM MDM MDM Narrative Medical decision making narrative: Patient has no signs or symptoms of anaphylaxis at this time I am unsure if she had anaphylaxis to begin with regardless I will treat her I will observe her in the emergency department. I discussed with family who was in the room. I will monitor her blood pressure. If everything is okay she can be discharged she still has epinephrine at home. She was given Solu-Medrol, Benadryl, Reglan and Toradol for migraine as well as IV fluids. Discharge Plan Triage Chief Complaint: Allergic Reaction ED Provider: Antonio Fisher Dx/Rx/DC Orders Clinical Impression: Anxiety, Allergic reaction Instructions: ED General Allergic Reactions, ED Using an Injection Pen Prescriptions: No Action sertraline [Zoloft] 100 MG tablet 100 mg PO DAILY Zyrtec 10 MG capsule 10 mg PO DAILY norgestimate-ethinyl estradiol 0.18/0.215/0.25 mg-35 mcg (28) tablet 1 tab PO DAILY cephalexin 500 mg capsule 500 mg PO BID Label Comments: take 1 capsule by mouth twice a day for 7 days prednisone 20 mg tablet 40 mg PO DAILY Qty: 8 0RF epinephrine [EpiPen 2-Rudi] 0.3 mg/0.3 mL auto-injector 0.3 mg IM Q15M PRN (Reason: anaphylaxis) Qty: 2 0RF Primary Care Provider: Care Physician,No Primary Referrals: Care Physician,No Primary [Primary Care Provider] - 3-5 Days Disposition Disposition: Home, Self Care
[2022-12-05] MEDS: 0.9% Normal Saline 1,000 ML 1000 ML IV (16:54)
[2022-12-05] MEDS: Metoclopramide 10 MG/2 ML Vial 5 MG IV (16:55)
[2022-12-05] MEDS: DiphenhydrAMINE 50 MG/ML Syringe 25 MG IV (16:55)
[2022-12-05] MEDS: MethylPREDNISolone 125 MG/2 ML Vial IV (16:55)
[2022-12-05] MEDS: Ketorolac 15 MG/ML Vial IV (16:56)
[2022-12-05 17:21] VITALS: BP 181/103; PULSE 84; RESP 15; O2SAT 97
--- NOTE | 2022-12-05 17:27 | CM.ED ---
Social Work Note Referral Source: Case find Referral reason: no PCP SW met with patient and introduced herself and role as [facility] Adviser Sales. Patient was laying in hospital bed and agreeable to speak to SW. SW inquired about patient's insurance as well as current PCP. Patient verified her insurance and reports not having a PCP. SW provide patient with a list of local PCPs accepting new patients in network with patient's insurance. Patient was receptive towards list and inquired about an RN's ability to turn off the alarms in her room as it was giving her a headache. SW to follow up. CHENTE met with hydraulic tester Alyssa to inform her patient was requesting the alarms to be turned off in her room as she has a headache. RN to address. Carlotta Kim CLARK DRIVER, PAWAN
--- NOTE | 2022-12-05 18:15 | ED.RN ---
This nurse in to discharge pt. Pt and aunt refusing discharge with pt stating I am clearly still in distress. Aunt states She has received no care since she has been here. Pt and aunt educated about medications that have been given to pt. Aunt still upset with care. Pt A+Ox4. Pt speech clear, logical, and coherent. Pt appears calm at this time, no signs of distress noted. Pt states she still cannot swallow and has migraine. Pt drank cup of water prior to attempted discharge. Physician notified. Physician in to talk with pt.
--- NOTE | 2022-12-05 18:59 | ED.RN ---
This nurse and NITESH Camp in to medicate pt. Pt refusing medication and states I want to go home and take care of it myself. Pt educated on reason for medications for migraine. Pt verbalized understanding and still refusing medication, stating I want to go home to my kids. Pt IV removed, discharge instructions reviewed with pt. Pt educated to followup with PCP and offered list of PCPs, pt stated she already had a list of PCPs. Pt offered wheelchair, refused stating My aunt will help me out. Pt ambulated out of ER with steady gait.
[2022-12-05 19:05] VITALS: BP 163/96; PULSE 83; RESP 16; O2SAT 98
== END 2022-12-05 19:07 | disposition home or self-care (01) ==
PROVIDERS: Emergency Provider Emergency Medicine; Visit Provider Emergency Medicine
DX: T78.40XA Allergy, unspecified, initial encounter (principal); F90.9 Attention-deficit hyperactivity disorder, unspecified type; F41.9 Anxiety disorder, unspecified; F32.A Depression, unspecified; F17.210 Nicotine dependence, cigarettes, uncomplicated; Z79.899 Other long term (current) drug therapy
CPT/HCPCS: 96361; 96372; 96374; 96375; 99285; J7030; A4216

== ENCOUNTER 2022-12-18 14:48 | Emergency (ER) | payer MEDICAID, SELFPAY ==
[2022-12-18 14:54] VITALS: PULSE 106; RESP 23; TEMP 36.6; O2SAT 94; BMI 32.9
[2022-12-18 14:58] VITALS: BP 217/19
[2022-12-18 15:20] VITALS: PULSE 86; RESP 20
[2022-12-18] MEDS: Racepinephrine HCl 0.5 ML VIAL.NEB. INHALATION (15:20)
[2022-12-18 15:36] LABS: Absolute Lymphocyte Count 3.77 X10^3/uL (0.83-4.51); Basophil# 0.02 X10^3/uL; Basophil% 0.2 % (0-1); Eosinophil# 0.09 X10^3/uL; Eosinophils% 0.9 % (0-5); Hematocrit 46.1 % (37-47); Hemoglobin 15.7 g/dL (12.0-15.0); Lymphocyte # 3.77 X10^3/ul (0.83-4.51); Lymphocyte % 36.3 % (19-41); Mean Corp Hgb Conc 34.1 g/dL (32-36); Mean Corpuscular Hgb 29.6 pg (27.0-32.0); Mean Corpuscular Volume 86.8 fL (81-99); Mean Platelet Vol. 8.8 fl (6.2-12.0); Monocyte# 0.47 X10^3/uL; Monocyte% 4.5 % (0-10); NRBC Flagged by Analyzer 0 % (0-5); Neutrophil # 6.01 X10^3/uL (2.7-7.7); Neutrophil % 57.7 % (47-70); Platelet Count 369 K/mm3 (150-450); RBC Distribution Width CV 12.8 % (11.6-14.6); RBC Distribution Width SD 40.4 fl (35.1-43.9); Red Blood Count 5.31 M/mm3 (4.2-5.4); White Blood Count 10.4 K/mm3 (4.4-11.0)
[2022-12-18 15:45] LABS: Anion Gap 8 (5-15); BUN 16 mg/dL (7-18); BUN/Creat Ratio 21.1 RATIO (10-20); Calcium,Total 9.1 mg/dL (8.5-10.1); Chloride 106 mmol/L (98-107); Creatinine, Serum 0.76 mg/dL (0.55-1.02); EST Glomerular Filtration Rate 87 mL/min (>60); Est Glom Filt Rate - Afr Amer 105 mL/min (>60); Estimated Creatinine Clearance 79.87 ml/min; Glucose 182 mg/dL (74-106); Potassium 3.2 mmol/L (3.5-5.1); Sodium Level 138 mmol/L (136-145); Troponin-I HS 30 pg/mL (3.0-54.0)
[2022-12-18 15:49] VITALS: BP 189/93; PULSE 87; RESP 13; O2SAT 99
[2022-12-18] MEDS: Ketorolac 15 MG/ML Vial IV (16:07)
[2022-12-18] MEDS: Metoclopramide 10 MG/2 ML Vial IV (16:07)
--- NOTE | 2022-12-18 16:20 | RAD_ITS ---
STUDY: X-RAY CHEST REASON FOR EXAM: Female, 47 years old. Dyspnea. Angioedema with anxiety. TECHNIQUE: PA and lateral views of the chest. COMPARISON: CTA of the chest, October 29, 2021. FINDINGS: The lungs are clear and expanded. There is no demonstrated pleural abnormality. Normal size heart. Normal mediastinum and vicenta. Normal visualized pulmonary arteries. Normal visualized aortic arch and descending thoracic aorta. Normal visualized thoracic spine. Normal visualized ribs, clavicles, and shoulders. There is no demonstrated abnormality of the visualized soft tissue structures of the upper abdomen. RAD/Chest PA and Lateral IMPRESSION: No acute cardiopulmonary disease. Electronically Signed: Gary Gallagher DO at 16:41 EDT ,
[2022-12-18 17:00] VITALS: BP 190/91; PULSE 81; RESP 14; O2SAT 99
--- NOTE | 2022-12-18 18:03 | EX.ED.DYSGE1 ---
HPI History of Present Illness Chief Complaint: Allergic Reaction Informant: patient and EMS Onset/Context/Timing Onset: Today Context: Sudden Onset Timing: Continuous Quality: Swelling Location: Throat, tongue Worsened by: Nothing Relieved by: Nothing Narrative Narrative: Patient presents with swelling of her tongue and throat that began today. Patient states it began rather suddenly today. Patient states she has had 2 similar episodes in the past. Patient states she has a history of an allergy to sulfa and penicillins. Patient states she was not exposed to any sulfa or penicillins. Patient states she took 4 [id number] Benadryl tablets prior to arrival with no improvement. Patient called EMS. EMS administered subcutaneous epinephrine and IV Benadryl. Patient denies any hives. Patient admits to some shortness of breath. Patient denies any cough. Patient states her breathing is starting to feel better since arriving to the emergency department. [facility] Medical History ADHD Anxiety COVID-19 Depression Kidney stone UTI (urinary tract infection) Home Medications cetirizine 10 mg capsule (Zyrtec) 10 mg PO DAILY 11/07/18 [History Last Taken Unknown] sertraline 100 mg tablet (Zoloft) 100 mg PO DAILY 11/07/18 [History Last Taken Unknown] norgestimate-ethinyl estradiol 0.18 mg/0.215mg/0.25mg-35 mcg(28)tablet 1 tab PO DAILY 09/10/21 [History Last Taken Unknown] cephalexin 500 mg capsule 500 mg PO BID 10/29/21 [History Last Taken Unknown] epinephrine 0.3 mg/0.3 mL injection, auto-injector (EpiPen 2-Rudi) 0.3 mg (0.3 mL) IM Q15M PRN anaphylaxis #2 ea 11/16/22 [Rx Last Taken Unknown] prednisone 20 mg tablet 40 mg PO DAILY #8 tabs 11/16/22 [Rx Last Taken Unknown] Allergy/AdvReac Type Severity Reaction Status Date / Time amoxicillin [Amoxicillin] Allergy Rash Verified 12/18/22 14:58 cefazolin Allergy Vomiting Verified 12/18/22 14:58 Sulfa (Sulfonamide Allergy Hives Verified 12/18/22 14:58 Antibiotics) ciprofloxacin [From Cipro] AdvReac Vomiting Verified 12/18/22 14:58 Social History Smoking Status: Current every day smoker tobacco type: cigarettes ROS ROS ED Constitutional Constitutional ED: Denies chills or fever(s) Eyes Eyes: Denies blurry vision or change in vision ENT ENT ED: Reports sore throat; Denies rhinorrhea Cardiovascular Cardiovascular: Denies chest pain or palpitations Respiratory/Chest Respiratory/Chest: Reports dyspnea; Denies cough Gastrointestinal Gastrointestinal: Denies nausea or vomiting Genitourinary Genitourinary ED: Denies dysuria or hematuria Musculoskeletal Musculoskeletal: Denies back pain or neck pain Integumentary Denies abscess or rash Neurologic Neurologic: Denies headache(s) or weakness Allergic/Immunologic Allergic/Immunologic ED: Denies mouth swelling or urticaria EXAM Physical Exam Const Vital Signs: 12/18/22 14:54 12/18/22 14:58 12/18/22 15:20 Temperature 98 F Temperature Source Temporal Pulse Rate 106 H 86 Respiratory Rate 23 H 20 H Respiratory Pattern Tachypnea Blood Pressure 217/19 H Blood Pressure Mean 85 Pulse Ox 94 Oxygen Delivery Method Room Air 12/18/22 15:45 12/18/22 15:49 12/18/22 17:00 Temperature Temperature Source Pulse Rate 87 81 Respiratory Rate 13 14 Respiratory Pattern Blood Pressure 189/93 H 190/91 H Blood Pressure Mean 125 124 Pulse Ox 99 99 Oxygen Delivery Method Room Air Room Air Room Air Positive well nourished and well developed General Appearance ED: well developed HEENT Reports moist mucous membranes HEENT Narrative: There is some edema of the tongue. There is no sublingual edema or evidence of Vernon's angina. There is no edema of the lips. Eyes PERRL and EOMs intact bilaterally Neck supple and no JVD Resp normal respiratory effort and clear to auscultation bilaterally Cardio regular rate, regular rhythm and no murmurs GI normal to inspection, nondistended, normoactive bowel sounds and non-tender Palpation: soft Extremity normal to inspection General Extremety ED: Negative for edema or tenderness General Extremity: Negative for edema Neuro oriented x3, CN's II-XII intact bilaterally and no sensory deficits noted Sensorium / Orientation: alert Motor Exam: strength 5/5 throughout Psych mental status grossly normal Skin no rashes or lesions noted MDM MDM MDM Narrative Medical decision making narrative: This is most likely angioedema. Since EMS started administered subcutaneous epinephrine, patient was given racemic epinephrine treatment here. CBC will be obtained to assess for leukocytosis and anemia. Basic metabolic profile will be obtained to assess for electrolyte abnormality and renal function. High-sensitivity troponin will be obtained to assess for cardiac ischemia. EKG will be obtained to assess for cardiac ischemia and cardiac dysrhythmia. Lab Data Attestation: I reviewed the patient's lab results. Lab results narrative: CBC was reviewed and was within normal limits. Basic metabolic profile was reviewed and showed a mild hypokalemia at 3.2. High-sensitivity troponin was reviewed and was normal at 30. Labs: Laboratory Results - last 24 hr 12/18/22 12/18/22 14:57 14:57 WBC 10.4 RBC 5.31 Hgb 15.7 H Hct 46.1 MCV 86.8 MCH 29.6 MCHC 34.1 RDW Std Deviation 40.4 RDW Coeff of Wan 12.8 Plt Count 369 MPV 8.8 Immature Gran % (Auto) 0.400 Neut % (Auto) 57.7 Lymph % (Auto) 36.3 [place] % (Auto) 4.5 Eos % (Auto) 0.9 Baso % (Auto) 0.2 Absolute Neuts (auto) 6.0 Absolute Lymphs (auto) 3.77 Nucleated RBC % 0 Sodium 138 Potassium 3.2 L Chloride 106 Carbon Dioxide 24.0 Anion Gap 8 BUN 16 Creatinine 0.76 Estim Creat Clear Calc 79.87 Est GFR (MDRD) Af Amer 105 Est GFR (MDRD) Non-Af 87 BUN/Creatinine Ratio 21.1 H Glucose 182 H Calcium 9.1 Troponin I High Sens 30 Radiography Chest X-Ray - ED: 2 View, Read by ED Physician, Read by Radiologist and No Acute Disease Diagnostic Testing: Clinical Impression(s) from Imaging Studies Chest X-Ray 12/18/22 16:20 IMPRESSION: No acute cardiopulmonary disease. Electronically Signed: Gary Gallagher DO at 16:41 EDT Reading Location ID and State: [address] [place] [address] Tel [phone], Service support , PA and lateral chest x-ray was obtained. There are 2 views. On my independent interpretation, lung lopez are clear. There is normal cardiac silhouette. Bony thorax is normal. There is no acute process noted. Radiologist also interpreted the x-ray and agrees. EKG Initial EKG: Attestation: I personally reviewed and interpreted this EKG as follows: Interpretation: Sinus Rhythm (84) and No Acute Injury Pattern Comments: EKG was obtained. On my independent interpretation, it showed a normal sinus rhythm with a rate of 84. AK interval, QRS interval, and QTc intervals were all normal. There is left axis deviation at -35. There are no acute ST or T wave changes. Prior EKG tracings: available for review Prior: Unchanged (10/29/2021) Treatment and Re-Evaluation :: Patient stated she was starting to develop a migraine headache. Patient was given a dose of Reglan and Toradol here. Since this may be familial angioedema, C1 esterase inhibitor function and quantitative tests were ordered. These will not be returned tonight. Patient will follow-up with her primary care physician for the results of these. Patient is feeling better on reevaluation. Patient was instructed to follow-up with her primary care physician in 5 to 7 days. Patient was instructed to return if worse in any way. Patient was instructed to take Benadryl as needed. Patient understood and was agreeable with the plan. All questions were answered. Discharge Plan Triage Chief Complaint: Allergic Reaction ED Provider: Adolph Daly Dx/Rx/DC Orders Clinical Impression: Angioedema, Headache, migraine Instructions: ED Angioedema, ED, Migraine (Classical) Prescriptions: No Action sertraline [Zoloft] 100 MG tablet 100 mg PO DAILY Zyrtec 10 MG capsule 10 mg PO DAILY norgestimate-ethinyl estradiol 0.18/0.215/0.25 mg-35 mcg (28) tablet 1 tab PO DAILY cephalexin 500 mg capsule 500 mg PO BID Label Comments: take 1 capsule by mouth twice a day for 7 days prednisone 20 mg tablet 40 mg PO DAILY Qty: 8 0RF epinephrine [EpiPen 2-Rudi] 0.3 mg/0.3 mL auto-injector 0.3 mg IM Q15M PRN (Reason: anaphylaxis) Qty: 2 0RF Primary Care Provider: Care Physician,No Primary Referrals: Care Physician,No Primary [Primary Care Provider] - 3-5 Days Activity Restrictions/Additional Instructions: Follow-up with your primary care physician in 3 to 5 days. Take Benadryl as needed for any swelling. Return to the emergency department for any further difficulty breathing or airway swelling. Disposition Disposition: Home, Self Care
[2022-12-18 18:25] VITALS: BP 194/110; PULSE 92; RESP 20; O2SAT 97
[2022-12-27 09:37] LABS: C1 EST Inhibitor, Functional 73 (.); C1 Esterase Inhibitor, Quant 35 mg/dL (21-39)
== END 2022-12-18 18:32 | disposition home or self-care (01) ==
PROVIDERS: Emergency Provider Emergency Medicine; Visit Provider Emergency Medicine
DX: T78.3XXA Angioneurotic edema, initial encounter (principal); T78.40XA Allergy, unspecified, initial encounter; G43.909 Migraine, unspecified, not intractable, without status migrainosus; F17.210 Nicotine dependence, cigarettes, uncomplicated; F32.A Depression, unspecified; Z79.899 Other long term (current) drug therapy
CPT/HCPCS: 86157; 71046; 80048; 84484; 85025; 86160; 86161; 93005; 94640; 99285

== ENCOUNTER 2023-03-22 13:31 | Emergency (ER) | payer MEDICAID, SELFPAY ==
[2023-03-22 13:32] VITALS: BP 197/148; PULSE 89; RESP 22; TEMP 35.5; O2SAT 99; BMI 32.1
--- NOTE | 2023-03-22 14:02 | EDS_ITS ---
HPI History of Present Illness Chief Complaint: Headache Narrative Narrative: 47-year-old female presenting with headache. She states is typical of her migraine headaches. She had it for 2 days. She describes photophobia, phonophobia, nausea. She tried to sit in a dark room like she normally does but is not going away. She has not had a fever or neck stiffness. He has been otherwise healthy prior to this. [facility] Medical History ADHD Anxiety COVID-19 Depression Kidney stone Migraine UTI (urinary tract infection) Home Medications cetirizine 10 mg capsule (Zyrtec) 10 mg PO DAILY 11/07/18 [History Last Taken Unknown] sertraline 100 mg tablet (Zoloft) 100 mg PO DAILY 11/07/18 [History Last Taken Unknown] norgestimate-ethinyl estradiol 0.18 mg/0.215mg/0.25mg-35 mcg(28)tablet 1 tab PO DAILY 09/10/21 [History Last Taken Unknown] cephalexin 500 mg capsule 500 mg PO BID 10/29/21 [History Last Taken Unknown] prednisone 20 mg tablet 40 mg PO DAILY #8 tabs 11/16/22 [Rx Last Taken Unknown] epinephrine 0.3 mg/0.3 mL injection, auto-injector (EpiPen 2-Rudi) 0.3 mg (0.3 mL) IM Q15M PRN anaphylaxis #2 ea 12/18/22 [Rx Last Taken Unknown] Allergy/AdvReac Type Severity Reaction Status Date / Time amoxicillin [Amoxicillin] Allergy Rash Verified 12/18/22 14:58 cefazolin Allergy Vomiting Verified 12/18/22 14:58 Sulfa (Sulfonamide Allergy Hives Verified 12/18/22 14:58 Antibiotics) ciprofloxacin [From Cipro] AdvReac Vomiting Verified 12/18/22 14:58 Social History Smoking Status: Current every day smoker tobacco type: cigarettes ROS ROS ED Constitutional Constitutional ED: Denies chills, fever(s) or sweats Eyes Eyes: Denies blurry vision or change in vision ENT ENT ED: Denies ear pain or sore throat Cardiovascular Cardiovascular: Denies chest pain, palpitations or racing heartbeat Respiratory/Chest Respiratory/Chest: Denies cough, dyspnea or sputum Gastrointestinal Gastrointestinal: Denies abdominal pain, constipation, diarrhea, nausea or vomiting Genitourinary Genitourinary ED: Denies dysuria, hematuria or urinary frequency Musculoskeletal Musculoskeletal: Denies arthralgias, myalgias or neck pain Integumentary Denies abscess, Abrasions or rash Neurologic Neurologic: Reports headache(s); Denies paresthesias or weakness Psychiatric Psychiatric: Denies anxiety, depression, suicidal ideation or suicidal thoughts Endocrine Endocrinology: Denies polydipsia or polyuria EXAM Physical Exam Const Vital Signs: 03/22/23 13:32 03/22/23 14:29 03/22/23 14:31 Temperature 96 F L Temperature Source Temporal Pulse Rate 89 Respiratory Rate 22 H Blood Pressure 197/148 H 208/116 H 171/112 H Blood Pressure Mean 164 146 131 Pulse Ox 99 Oxygen Delivery Method Room Air Positive well nourished General Appearance ED: NAD; Negative for pallor HEENT Reports normocephalic atraumatic Eyes PERRL and EOMs intact bilaterally Resp normal respiratory effort Cardio regular rate and regular rhythm Neuro oriented x3 and CN's II-XII intact bilaterally Sensorium / Orientation: awake, alert, oriented to person and oriented to place Motor Exam: strength 5/5 throughout Psych mental status grossly normal Skin General Skin Exam: Negative for jaundice or pallor MDM MDM MDM Narrative Medical decision making narrative: Patient presenting with headache which is typical of her migraine. She states she has not been able to get up to get be under control at home. She has no focal neurologic deficits or lateralizing signs or symptoms. Patient ordered Reglan, Benadryl, Toradol. On reevaluation patient is feeling improved. CBC shows a white blood cell count 9.5, hemoglobin 13.3, platelets 245, renal function and electrolytes within normal limits with exception of a potassium of 3.4. High-sensitivity troponin 41 EKG on my interpretation shows a normal sinus rhythm with a ventricular rate of [address] brain was negative. Blood pressures come down to 167/93. I reviewed her record and clinisync. It appears that she is on amlodipine 5 mg once daily as well as clonidine 0.2 mg 3 times daily. This was started on the however the patient was not been unable to take her blood pressure medicine today because of her nausea. At this point I feel she stable for discharge home. I recommend follow-up with her PCP. Impression: 1. Headache 2. Hypertension Lab Data Attestation: I reviewed the patient's lab results. Labs: Laboratory Results - last 24 hr 03/22/23 03/22/23 14:20 14:20 WBC 9.5 RBC 4.58 Hgb 13.3 Hct 40.7 MCV 88.9 MCH 29.0 MCHC 32.7 RDW Std Deviation 43.2 RDW Coeff of Wan 13.2 Plt Count 245 MPV 8.6 Immature Gran % (Auto) 0.300 Neut % (Auto) 68.2 Lymph % (Auto) 25.1 [place] % (Auto) 4.9 Eos % (Auto) 1.1 Baso % (Auto) 0.4 Absolute Neuts (auto) 6.5 Absolute Lymphs (auto) 2.38 Nucleated RBC % 0 Sodium 138 Potassium 3.4 L Chloride 107 Carbon Dioxide 24.0 Anion Gap 7 BUN 19 H Creatinine 0.66 Estim Creat Clear Calc 91.97 Est GFR (MDRD) Af Amer 124 Est GFR (MDRD) Non-Af 103 BUN/Creatinine Ratio 29.0 H Glucose 119 H Calcium 9.0 Troponin I High Sens 41 Radiography Diagnostic Testing: Clinical Impression(s) from Imaging Studies Brain CT 03/22/23 14:09 IMPRESSION: No acute intracranial process identified. Electronically Signed: Maura Lizarraga MD at 15:05 EDT Reading Location ID and State: [facility] / [place] Tel , Service support , Discharge Plan Triage Chief Complaint: Headache ED Provider: Levi Barajas Dx/Rx/DC Orders Instructions: ED Headache Unspecified Prescriptions: No Action sertraline [Zoloft] 100 MG tablet 100 mg PO DAILY Zyrtec 10 MG capsule 10 mg PO DAILY norgestimate-ethinyl estradiol 0.18/0.215/0.25 mg-35 mcg (28) tablet 1 tab PO DAILY cephalexin 500 mg capsule 500 mg PO BID Label Comments: take 1 capsule by mouth twice a day for 7 days prednisone 20 mg tablet 40 mg PO DAILY Qty: 8 0RF epinephrine [EpiPen 2-Rudi] 0.3 mg/0.3 mL auto-injector 0.3 mg IM Q15M PRN (Reason: anaphylaxis) Qty: 2 0RF Stand Alone Forms: ED Work / School Excuse Primary Care Provider: Sanam Davis Referrals: Sanam Davis, [employer] [Primary Care Provider] - Disposition Disposition: Home, Self Care
[2023-03-22] MEDS: 0.9% Normal Saline 1,000 ML 999 ML IV (14:08)
[2023-03-22] MEDS: Ketorolac 15 MG/ML Vial IV (14:09)
[2023-03-22] MEDS: Metoclopramide 10 MG/2 ML Vial IV (14:09)
[2023-03-22] MEDS: DiphenhydrAMINE 50 MG/ML Syringe 25 MG IV (14:09)
--- NOTE | 2023-03-22 14:09 | EKG12_ITS ---
Test Reason : HEADACH Blood Pressure : / mmHG Vent. Rate : 083 BPM Atrial Rate : 083 BPM P-R Int : 138 ms QRS Dur : 082 ms QT Int : 386 ms P-R-T Axes : 002 -17 044 degrees QTc Int : 453 ms Normal sinus rhythm Minimal voltage criteria for LVH, may be normal variant ( R in aVL ) Borderline ECG Confirmed by JEFF CHIU, ANAMARIA ([id number]), city editor DARRON RESTREPO ([id number]) on 03/24/2023 1:00:53 PM Referred By: Confirmed By:ANAMARIA AGUILAR MD
--- NOTE | 2023-03-22 14:09 | CT_ITS ---
HISTORY: [place]. TECHNIQUE: Multiple axial images were obtained of the head without intravenous contrast. A radiation dose optimization technique was used for this scan. 251 images. COMPARISON: None. FINDINGS: BRAIN PARENCHYMA: No significant attenuation abnormality. No acute intra-axial hemorrhage. CSF SPACES: Cerebral ventricles, cortical sulci, and other extra-axial CSF spaces within normal limits in size for age. No midline shift or other significant mass effect. No acute extra-axial hemorrhage. OTHER: Intact calvarium. Mild left maxillary sinus mucosal thickening. Unremarkable orbits. CT/Brain/Head without Contrast IMPRESSION: No acute intracranial process identified. Electronically Signed: Maura Lizarraga MD at 15:05 EDT ,
[2023-03-22] MEDS: Labetalol (Prefilled) 20 MG/4 ML IV (14:27)
[2023-03-22 14:28] LABS: Absolute Lymphocyte Count 2.38 X10^3/uL (0.83-4.51); Absolute Neutrophil Count 6.5 X10^3/uL (2.0-7.7); Basophil# 0.04 X10^3/uL; Basophil% 0.4 % (0-1); Eosinophils% 1.1 % (0-5); Hematocrit 40.7 % (37-47); Hemoglobin 13.3 g/dL (12.0-15.0); Lymphocyte # 2.38 X10^3/ul (0.83-4.51); Lymphocyte % 25.1 % (19-41); Mean Corp Hgb Conc 32.7 g/dL (32-36); Mean Corpuscular Volume 88.9 fL (81-99); Mean Platelet Vol. 8.6 fl (6.2-12.0); Monocyte# 0.47 X10^3/uL; Monocyte% 4.9 % (0-10); NRBC Flagged by Analyzer 0 % (0-5); Neutrophil # 6.48 X10^3/uL (2.7-7.7); Neutrophil % 68.2 % (47-70); Platelet Count 245 K/mm3 (150-450); RBC Distribution Width CV 13.2 % (11.6-14.6); RBC Distribution Width SD 43.2 fl (35.1-43.9); Red Blood Count 4.58 M/mm3 (4.2-5.4); White Blood Count 9.5 K/mm3 (4.4-11.0)
[2023-03-22 14:29] VITALS: BP 208/116
[2023-03-22 14:31] VITALS: BP 171/112
[2023-03-22 14:44] LABS: Anion Gap 7 (5-15); BUN 19 mg/dL (7-18); Chloride 107 mmol/L (98-107); Creatinine, Serum 0.66 mg/dL (0.55-1.02); EST Glomerular Filtration Rate 103 mL/min (>60); Est Glom Filt Rate - Afr Amer 124 mL/min (>60); Estimated Creatinine Clearance 91.97 ml/min; Glucose 119 mg/dL (74-106); Potassium 3.4 mmol/L (3.5-5.1); Sodium Level 138 mmol/L (136-145); Troponin-I HS 41 pg/mL (3.0-54.0)
[2023-03-22 16:08] VITALS: BP 142/95
== END 2023-03-22 16:08 | disposition home or self-care (01) ==
PROVIDERS: Emergency Provider Student in an Organized Health Care Education/Training Program; PCP Nurse Practitioner Family; Visit Provider Student in an Organized Health Care Education/Training Program
DX: R51.9 Headache, unspecified (principal); F17.210 Nicotine dependence, cigarettes, uncomplicated; I10 Essential (primary) hypertension; F32.A Depression, unspecified; Z79.899 Other long term (current) drug therapy; Z79.3 Long term (current) use of hormonal contraceptives
CPT/HCPCS: 70450; 80048; 84484; 85025; 93005; 96361; 96374; 96375; 99283

== ENCOUNTER 2023-08-14 16:22 | Emergency (ER) | payer MEDICAID, SELFPAY ==
[2023-08-14] VITALS (10 sets, daily range): BP systolic 130–209; BP diastolic 85–177; PULSE 68–78; RESP 10–20; TEMP 36.6; O2SAT 99–100; BMI 32.6
--- NOTE | 2023-08-14 20:09 | EKG12_ITS ---
Test Reason : Blood Pressure : / mmHG Vent. Rate : 072 BPM Atrial Rate : 072 BPM P-R Int : 148 ms QRS Dur : 082 ms QT Int : 394 ms P-R-T Axes : 013 -01 054 degrees QTc Int : 431 ms Normal sinus rhythm Normal ECG Confirmed by JEFF CHIU, ANAMARIA ([id number]), newspaper photo editor DARRON RESTREPO ([id number]) on 08/20/2023 12:02:29 PM Referred By: Confirmed By:ANAMARIA AGUILAR MD
--- NOTE | 2023-08-14 20:10 | EX.ED.DYSGE1 ---
HPI History of Present Illness Chief Complaint: Hypertension Informant: patient Onset/Context/Timing Onset: Today Context: Gradual Onset Timing: Continuous Worsened by: Nothing Relieved by: Nothing Narrative Narrative: Patient presents with elevated blood pressure is noticed today. Patient was at her primary care physician's office today where they noted her blood pressure was elevated. Patient was then referred to the emergency department. Patient denies any chest pain or shortness of breath. Patient admits to a cough. Patient states she has been taking [id number] nasal spray for her cough and seasonal allergies. Patient states it is not the addictive kind. Patient denies any nausea or vomiting. Patient admits to urinary frequency but states that is chronic. [facility] Medical History (Updated 08/14/23 @ 23:[address] Adolph Daly DO) ADHD Anxiety COVID-19 Depression Hypertension Kidney stone Migraine UTI (urinary tract infection) Home Medications cetirizine 10 mg capsule (Zyrtec) 10 mg PO DAILY 11/07/18 [History Last Taken Unknown] sertraline 100 mg tablet (Zoloft) 100 mg PO DAILY 11/07/18 [History Last Taken Unknown] norgestimate-ethinyl estradiol 0.18 mg/0.215mg/0.25mg-35 mcg(28)tablet 1 tab PO DAILY 09/10/21 [History Last Taken Unknown] cephalexin 500 mg capsule 500 mg PO BID 10/29/21 [History Last Taken Unknown] prednisone 20 mg tablet 40 mg (2 x 20 mg) PO DAILY #8 tabs 11/16/22 [Rx Last Taken Unknown] epinephrine 0.3 mg/0.3 mL injection, auto-injector (EpiPen 2-Rudi) 0.3 mg (0.3 mL) IM Q15M PRN anaphylaxis #2 ea 12/18/22 [Rx Last Taken Unknown] Allergy/AdvReac Type Severity Reaction Status Date / Time amoxicillin [Amoxicillin] Allergy Rash Verified 08/14/23 16:23 cefazolin Allergy Vomiting Verified 08/14/23 16:23 Sulfa (Sulfonamide Allergy Hives Verified 08/14/23 16:23 Antibiotics) ciprofloxacin [From Cipro] AdvReac Vomiting Verified 08/14/23 16:23 Surgical History no surgical history no surgical history Social History Smoking Status: Current every day smoker tobacco type: cigarettes ROS ROS ED Constitutional Constitutional ED: Denies chills or fever(s) Eyes Eyes: Denies blurry vision or change in vision ENT ENT ED: Denies rhinorrhea or sore throat Cardiovascular Cardiovascular: Denies chest pain or palpitations Respiratory/Chest Respiratory/Chest: Reports cough; Denies dyspnea Gastrointestinal Gastrointestinal: Denies nausea or vomiting Genitourinary Genitourinary ED: Reports urinary frequency; Denies dysuria or hematuria Musculoskeletal Musculoskeletal: Denies back pain or neck pain Integumentary Reports rash; Denies abscess Neurologic Neurologic: Reports headache(s); Denies weakness Allergic/Immunologic Allergic/Immunologic ED: Denies mouth swelling or urticaria EXAM Physical Exam Const Vital Signs: 08/14/23 16:23 08/14/23 18:43 08/14/23 20:18 Temperature 98 F Temperature Source Temporal Pulse Rate 78 73 Respiratory Rate 18 20 H Respiratory Pattern Normal Blood Pressure 199/123 H 187/109 H Blood Pressure Mean 148 135 Pulse Ox 99 Oxygen Delivery Method Room Air Room Air 08/14/23 21:15 08/14/23 21:30 08/14/23 21:45 Temperature Temperature Source Pulse Rate 70 72 Respiratory Rate 11 L 14 Respiratory Pattern Blood Pressure 204/107 H 191/177 H 207/168 H Blood Pressure Mean 135 184 178 Pulse Ox 100 99 Oxygen Delivery Method 08/14/23 22:39 Temperature Temperature Source Pulse Rate Respiratory Rate Respiratory Pattern Blood Pressure 145/91 H Blood Pressure Mean 109 Pulse Ox Oxygen Delivery Method Positive well nourished, well developed and obese General Appearance ED: well developed and NAD Nutritional Appearance: obese HEENT Reports moist mucous membranes Neck supple and no JVD Resp normal respiratory effort and clear to auscultation bilaterally Cardio regular rate and regular rhythm GI non-tender and non-distended Palpation: soft Extremity normal to inspection General Extremety ED: Negative for edema or tenderness General Extremity: Negative for edema Neuro oriented x3, CN's II-XII intact bilaterally and no sensory deficits noted Sensorium / Orientation: alert Motor Exam: strength 5/5 throughout Psych mental status grossly normal MDM MDM MDM Narrative Medical decision making narrative: Differential diagnosis includes hypertensive urgency, hypertensive emergency, uncontrolled hypertension, and anxiety. EKG will be obtained to assess for cardiac dysrhythmia and cardiac ischemia. CBC will be obtained to assess for leukocytosis and anemia. Basic metabolic profile will be obtained to assess for renal function and electrolyte abnormality. High-sensitivity troponin will be obtained to assess for cardiac ischemia. Chest x-ray will be obtained to assess for widened mediastinum pneumonia, and pneumothorax. Lab Data Attestation: I reviewed the patient's lab results. Lab results narrative: CBC was reviewed and was within normal limits. Basic metabolic profile was reviewed and was within normal limits. High-sensitivity troponin was reviewed and was normal. Labs: Laboratory Results - last 24 hr 08/14/23 20:20 WBC 9.3 RBC 4.81 Hgb 13.6 Hct 41.6 MCV 86.5 MCH 28.3 MCHC 32.7 RDW Std Deviation 40.7 RDW Coeff of Wan 13.0 Plt Count 260 MPV 8.6 Immature Gran % (Auto) 0.300 Neut % (Auto) 65.7 Lymph % (Auto) 28.4 [place] % (Auto) 4.4 Eos % (Auto) 0.9 Baso % (Auto) 0.3 Absolute Neuts (auto) 6.1 Absolute Lymphs (auto) 2.64 Nucleated RBC % 0 Sodium 136 Potassium 3.7 Chloride 101 Carbon Dioxide 31.0 Anion Gap 4 L BUN 11 Creatinine 0.81 Estim Creat Clear Calc 74.14 Est GFR (MDRD) Af Amer 98 Est GFR (MDRD) Non-Af 81 BUN/Creatinine Ratio 13.6 Glucose 113 H Calcium 9.3 Troponin I High Sens 17 Radiography Chest X-Ray - ED: 1 View, Read by ED Physician, Read by Radiologist and No Acute Disease Diagnostic Testing: Clinical Impression(s) from Imaging Studies Chest X-Ray 08/14/23 20:22 IMPRESSION: 1. No radiographic evidence of acute cardiopulmonary disease. Electronically Signed: Femi Velasco DO at 21:23 EST , Portable 1 view chest x-ray was obtained. On my independent interpretation, lung lopez are clear. There is normal cardiac silhouette. Bony thorax is normal. There is no acute process noted. Radiologist also interpreted the x-ray and agrees. EKG Initial EKG: Attestation: I personally reviewed and interpreted this EKG as follows: Interpretation: Sinus Rhythm (72) and No Acute Injury Pattern Comments: EKG was obtained. On my independent interpretation, it showed a normal sinus rhythm with a rate of 72. NE interval, QRS interval, and QTc intervals were all normal. [place] was normal. There are no acute ST or T wave changes. Prior EKG tracings: available for review Prior: Unchanged (03/22/2023) Treatment and Re-Evaluation :: Patient was given a dose of clonidine here. Patient was still hypertensive after this. Patient was given a dose of labetalol. Patient's blood pressure improved to 145/91. Patient was feeling better on reevaluation. Patient was advised of her findings. Patient was instructed to follow-up with her primary care physician in 5 to 7 days. Patient was instructed return if worse in any way. Patient understood and was agreeable with the plan. All questions were answered. Discharge Plan Triage Chief Complaint: Hypertension ED Provider: Adolph Daly Dx/Rx/DC Orders Clinical Impression: Hypertension Instructions: ED Hypertension, Established, ED High Blood Pressure Hypertension Prescriptions: No Action sertraline [Zoloft] 100 MG tablet 100 mg PO DAILY Zyrtec 10 MG capsule 10 mg PO DAILY norgestimate-ethinyl estradiol 0.18/0.215/0.25 mg-35 mcg (28) tablet 1 tab PO DAILY cephalexin 500 mg capsule 500 mg PO BID Patient Comments: take 1 capsule by mouth twice a day for 7 days prednisone 20 mg tablet 40 mg PO DAILY Qty: 8 0RF epinephrine [EpiPen 2-Rudi] 0.3 mg/0.3 mL auto-injector 0.3 mg IM Q15M PRN (Reason: anaphylaxis) Qty: 2 0RF Primary Care Provider: Sanam Davis Referrals: Sanam Davis, ABIODUN-C [Primary Care Provider] - 3-5 Days Activity Restrictions/Additional Instructions: Keep a log of your blood pressures. Follow-up with your primary care physician in 3 to 5 days for further management of your blood pressure. Disposition Disposition: Home, Self Care
--- NOTE | 2023-08-14 20:22 | RAD_ITS ---
INDICATION: Hypertension EXAMINATION/TECHNIQUE: X-RAY - XR Chest 1 View COMPARISON: December 18, 2022 chest x-ray. FINDINGS: LINES/DEVICES: None. LUNGS: Symmetric normal lung volumes. No airspace opacity or abnormal interstitial pattern. No nodule or mass. No pleural effusion or pneumothorax. MEDIASTINUM AND CARDIOVASCULAR STRUCTURES: Normal size and contour of the cardiomediastinal silhouette. No evidence of pulmonary vascular congestion. BONES AND SOFT TISSUES: No fracture or focal osseous lesion. RAD/Chest 1 View (Portable) IMPRESSION: 1. No radiographic evidence of acute cardiopulmonary disease. Electronically Signed: Femi Velasco DO at 21:23 EST ,
[2023-08-14 20:26] LABS: Absolute Lymphocyte Count 2.64 X10^3/uL (0.83-4.51); Absolute Neutrophil Count 6.1 X10^3/uL (2.0-7.7); Basophil# 0.03 X10^3/uL; Basophil% 0.3 % (0-1); Eosinophil# 0.08 X10^3/uL; Eosinophils% 0.9 % (0-5); Hematocrit 41.6 % (37-47); Hemoglobin 13.6 g/dL (12.0-15.0); Lymphocyte # 2.64 X10^3/ul (0.83-4.51); Lymphocyte % 28.4 % (19-41); Mean Corp Hgb Conc 32.7 g/dL (32-36); Mean Corpuscular Hgb 28.3 pg (27.0-32.0); Mean Corpuscular Volume 86.5 fL (81-99); Mean Platelet Vol. 8.6 fl (6.2-12.0); Monocyte# 0.41 X10^3/uL; Monocyte% 4.4 % (0-10); NRBC Flagged by Analyzer 0 % (0-5); Neutrophil # 6.09 X10^3/uL (2.7-7.7); Neutrophil % 65.7 % (47-70); Platelet Count 260 K/mm3 (150-450); RBC Distribution Width SD 40.7 fl (35.1-43.9); Red Blood Count 4.81 M/mm3 (4.2-5.4); White Blood Count 9.3 K/mm3 (4.4-11.0)
[2023-08-14] MEDS: cloNIDine HCl 0.2 MG Tablet PO (20:35)
[2023-08-14 20:43] LABS: Anion Gap 4 (5-15); BUN 11 mg/dL (7-18); BUN/Creat Ratio 13.6 RATIO (10-20); Calcium,Total 9.3 mg/dL (8.5-10.1); Chloride 101 mmol/L (98-107); Creatinine, Serum 0.81 mg/dL (0.55-1.02); EST Glomerular Filtration Rate 81 mL/min (>60); Est Glom Filt Rate - Afr Amer 98 mL/min (>60); Estimated Creatinine Clearance 74.14 ml/min; Glucose 113 mg/dL (74-106); Potassium 3.7 mmol/L (3.5-5.1); Sodium Level 136 mmol/L (136-145); Troponin-I HS 17 pg/mL (3.0-54.0)
[2023-08-14] MEDS: Labetalol (Prefilled) 20 MG/4 ML 10 MG IV (22:18)
== END 2023-08-14 23:21 | disposition home or self-care (01) ==
PROVIDERS: Emergency Provider Emergency Medicine; PCP Nurse Practitioner Family; Visit Provider Emergency Medicine
DX: I10 Essential (primary) hypertension (principal); F17.210 Nicotine dependence, cigarettes, uncomplicated; E66.9 Obesity, unspecified; Z86.16 Personal history of COVID-19
CPT/HCPCS: 71045; 80048; 84484; 85025; 93005; 96374; 99283; A4216

== ENCOUNTER 2023-11-14 11:12 | Emergency (ER) | payer MEDICAID, SELFPAY ==
[2023-11-14 11:14] VITALS: BP 147/82; PULSE 101; RESP 14; TEMP 36.2; O2SAT 98; BMI 34.7
--- NOTE | 2023-11-14 11:24 | EKG12_ITS ---
Test Reason : CP Blood Pressure : / mmHG Vent. Rate : 096 BPM Atrial Rate : 096 BPM P-R Int : 138 ms QRS Dur : 078 ms QT Int : 358 ms P-R-T Axes : 001 -11 038 degrees QTc Int : 452 ms Normal sinus rhythm Moderate voltage criteria for LVH, may be normal variant ( R in aVL , [place] product ) Abnormal ECG Confirmed by Femi Ceron ([id number]), editor index DARRON RESTREPO ([id number]) on 11/17/2023 9:43:17 AM Referred By: Confirmed By:Femi Ceron
--- NOTE | 2023-11-14 11:26 | EDS_ITS ---
HPI <ALIS Ball - Last Filed: 11/14/23 14:19> History of Present Illness Chief Complaint: Chest Pain Narrative Narrative: 48-year-old female with PMH of hypertension and anxiety presents with diffuse chest pressure that started around 5 AM this morning. Her left shoulder also hurt but it resolved. She feels short of breath and nauseous with no vomiting. She states both legs ache. She also has a recent dry cough she attributes to allergies. She is on a beta-federico twice daily for her blood pressure but does not know the name of it. She smokes 1/2 PPD. She has no cardiopulmonary history. No history of DVT/PE or risk factors. She was on control but stopped taking it a while ago. She has been under a lot of stress because her mom was life flighted to the ICU last week. She lives at home and takes care of her 2 sons. <Dr. Virgilio Horton DO - Last Filed: 11/14/23 19:24> Narrative Narrative: 48-year-old female with PMH of hypertension and anxiety presents with diffuse chest pressure that started around 5 AM this morning. Her left shoulder also hurt but it resolved. She feels short of breath and nauseous with no vomiting. She states both legs ache. She also has a recent dry cough she attributes to allergies. She is on a beta-federico twice daily for her blood pressure but does not know the name of it. She smokes 1/2 PPD. She has no cardiopulmonary history. No history of DVT/PE or risk factors. She was on control but stopped taking it a while ago. She has been under a lot of stress because her mom was life flighted to the ICU last week. She lives at home and takes care of her 2 sons. The patient denies recent surgery in the last 4 weeks or immobilization in the last 3 days, denies previous diagnosis of DVT or PE, hemoptysis, unilateral leg swelling or malignancy with treatment the last 6 months or palliative. No estrogen use noted. Patient denies sudden onset of pain, no tearing sensation, no migratory symptoms, no new numbness, weakness or loss of sensation. Patient denies family history or personal history of Connective tissue disorders (Marfan's Syndrome, Rivera Danlos etc) PFSH <ALIS Ball - Last Filed: 11/14/23 14:19> PFS Medical History (Updated 11/14/23 @ 13:19 by ALIS Ball) ADHD Anxiety COVID-19 Depression Hypertension Kidney stone Migraine UTI (urinary tract infection) Home Medications cetirizine 10 mg capsule (Zyrtec) 10 mg PO DAILY 11/07/18 [History Last Taken Unknown] sertraline 100 mg tablet (Zoloft) 100 mg PO DAILY 11/07/18 [History Last Taken Unknown] norgestimate-ethinyl estradiol 0.18 mg/0.215mg/0.25mg-35 mcg(28)tablet 1 tab PO DAILY 09/10/21 [History Last Taken Unknown] prednisone 20 mg tablet 40 mg (2 x 20 mg) PO DAILY #8 tabs 11/16/22 [Rx Last Taken Unknown] epinephrine 0.3 mg/0.3 mL injection, auto-injector (EpiPen 2-Rudi) 0.3 mg (0.3 mL) IM Q15M PRN anaphylaxis #2 ea 12/18/22 [Rx Last Taken Unknown] aripiprazole 5 mg tablet 2.5 mg PO QHS 11/14/23 [History Last Taken Unknown] dextroamphetamine-amphetamine 30 mg tablet 30 mg PO BID 11/14/23 [History Last Taken Unknown] hydrochlorothiazide 25 mg tablet 25 mg PO DAILY 11/14/23 [History Last Taken Unknown] labetalol 100 mg tablet 100 mg PO Q12H 11/14/23 [History Last Taken Unknown] lisinopril 20 mg tablet 20 mg PO DAILY 11/14/23 [History Last Taken Unknown] losartan 25 mg tablet 25 mg PO DAILY 11/14/23 [History Last Taken Unknown] Allergy/AdvReac Type Severity Reaction Status Date / Time cephalexin Allergy Intermediate Hives Verified 11/14/23 11:13 amoxicillin [Amoxicillin] Allergy Rash Verified 11/14/23 11:13 cefazolin Allergy Vomiting Verified 11/14/23 11:13 Sulfa (Sulfonamide Allergy Hives Verified 11/14/23 11:13 Antibiotics) ciprofloxacin [From Cipro] AdvReac Vomiting Verified 11/14/23 11:13 Social History Smoking Status: Current every day smoker tobacco type: cigarettes ROS <ALIS Ball - Last Filed: 11/14/23 14:19> ROS ED ROS Narrative Constitutional: Negative for fever, chills, malaise. CVS: Positive for chest pain. Negative for palpitations, syncope. Respiratory: Positive for cough. GI: Negative for abdominal pain, vomiting, diarrhea, constipation, melena, hematochezia. Neuro: Negative for headache. EXAM <ALIS Ball Last Filed: 11/14/23 14:19> Physical Exam Narrative Exam Narrative: CONST: Patient sitting in no acute distress. EYES: Normal inspection. NECK: Normal inspection. RESP: No respiratory distress, CTAB. CVS: Regular rate and rhythm, no murmur, no gallop. ABD: Soft and nontender, no guarding or rebound, nondistende. SKIN: Color normal, no rash, warm, dry, intact. EXTREMITIES: Normal appearance, no pedal edema, no calf tenderness, 2+ radial and DP pulses. NEURO: Oriented x4. PSYCH: Anxious and crying. Const Vital Signs: 11/14/23 11:14 11/14/23 11:16 11/14/23 11:30 Temperature 97.2 F L Temperature Source Temporal Pulse Rate 101 H Respiratory Rate 14 Respiratory Effort Normal Non-Labored Blood Pressure 147/82 H Blood Pressure Mean 103 Pulse Ox 98 96 Oxygen Delivery Method Room Air Room Air 11/14/23 13:06 11/14/23 14:17 Temperature 97.7 F L Temperature Source Pulse Rate 94 77 Respiratory Rate 14 16 Respiratory Effort Blood Pressure 120/73 123/89 H Blood Pressure Mean 88 100 Pulse Ox 98 99 Oxygen Delivery Method <Dr. Virgilio Horton DO - Last Filed: 11/14/23 19:24> Physical Exam Const Vital Signs: 11/14/23 11:14 11/14/23 11:16 11/14/23 11:30 Temperature 97.2 F L Temperature Source Temporal Pulse Rate 101 H Respiratory Rate 14 Respiratory Effort Normal Non-Labored Blood Pressure 147/82 H Blood Pressure Mean 103 Pulse Ox 98 96 Oxygen Delivery Method Room Air Room Air 11/14/23 13:06 11/14/23 14:17 Temperature 97.7 F L Temperature Source Pulse Rate 94 77 Respiratory Rate 14 16 Respiratory Effort Blood Pressure 120/73 123/89 H Blood Pressure Mean 88 100 Pulse Ox 98 99 Oxygen Delivery Method <ALIS Ball - Last Filed: 11/14/23 14:19> Heart Score History: Slightly/Non-Suspicious Age: >45 - <65 years Risk Factors: 1 or 2 Risk Factors Score: 2 <Dr. Virgilio Horton DO - Last Filed: 11/14/23 19:24> Heart Score Score: 2 MDM <ALIS Ball - Last Filed: 11/14/23 14:19> MDM MDM Narrative Medical decision making narrative: Patient has diffuse chest pain. Also reports history of a cough and after coughing today the pain started around 5 AM. She appears well and nontoxic and is afebrile with normal vital signs. She is anxious and crying during exam but is otherwise unremarkable. CBC and BMP are unremarkable. Serial troponins are 32 and 30. BNP is 12.6. EKG is nonischemic with no right heart strain so I have low concern for PE. CXR shows no acute process and COVID/flu/RSV swab is negative. Patient had improvement after Toradol. I discussed following up with her primary care doctor and discussed return precautions. She was discharged in stable condition. Differential: ACS, PE, pneumonia, musculoskeletal Lab Data Attestation: I reviewed the patient's lab results. Labs: Laboratory Results - last 24 hr 11/14/23 11/14/23 11:20 13:40 WBC 7.9 RBC 4.85 Hgb 13.7 Hct 42.7 MCV 88.0 MCH 28.2 MCHC 32.1 RDW Std Deviation 44.6 H RDW Coeff of Wan 13.9 Plt Count 273 MPV 9.0 Immature Gran % (Auto) 0.400 Neut % (Auto) 83.5 H Lymph % (Auto) 10.8 L [place] % (Auto) 3.4 Eos % (Auto) 1.5 Baso % (Auto) 0.4 Absolute Neuts (auto) 6.6 Absolute Lymphs (auto) 0.86 Nucleated RBC % 0 Sodium 134 L Potassium 3.7 Chloride 102 Carbon Dioxide 26.0 Anion Gap 6 BUN 11 Creatinine 0.82 Estim Creat Clear Calc 93.16 Est GFR (MDRD) Af Amer 95 Est GFR (MDRD) Non-Af 79 BUN/Creatinine Ratio 13.3 Glucose 245 H Calcium 9.4 Troponin I High Sens 32 30 B-Natriuretic Peptide 12.6 Radiography Diagnostic Testing: Clinical Impression(s) from Imaging Studies Chest X-Ray 11/14/23 12:10 IMPRESSION: Normal x-ray examination of the chest. Electronically Signed: Yuan Rodrigez MD at 12:29 EST , ED attending interpretation of 2-view chest x-ray shows normal heart size, no acute infiltrate, edema, or effusion. EKG Initial EKG: Attestation: I personally reviewed and interpreted this EKG as follows: Interpretation: Sinus Rhythm and No Acute Injury Pattern Comments: Normal sinus rhythm at 96 bpm No acute ischemic changes No right heart strain <Dr. Virgilio Horton, DO - Last Filed: 11/14/23 19:24> [facility] Narrative Medical decision making narrative: Patient has diffuse chest pain. Also reports history of a cough and after coughing today the pain started around 5 AM. She appears well and nontoxic and is afebrile with normal vital signs. She is anxious and crying during exam but is otherwise unremarkable. CBC and BMP are unremarkable. Serial troponins are 32 and 30. BNP is 12.6. EKG is nonischemic with no right heart strain so I have low concern for PE. CXR shows no acute process and COVID/flu/RSV swab is negative. Patient had improvement after Toradol. I discussed following up with her primary care doctor and discussed return precautions. She was discharged in stable condition. Differential: ACS, PE, pneumonia, musculoskeletal PE less likely given low risk Wells score. Aortic dissection is thought to be less likely given no sudden ripping or tearing pain, migratory pain, palpable pulse inequalities, no focal neurologic deficits concurrent with chest pain. Chance of dissection less than 09/1999. Pericarditis less likely given no pathognomonic EKG changes (no diffuse ST elevations, [place] depressions). GI etiology (i.e. Boerhaave syndrome) less likely given no chest or neck crepitus, no vomiting or forced retching. Lab Data Labs: Laboratory Results - last 24 hr 11/14/23 11/14/23 11:20 13:40 WBC 7.9 RBC 4.85 Hgb 13.7 Hct 42.7 MCV 88.0 MCH 28.2 MCHC 32.1 RDW Std Deviation 44.6 H RDW Coeff of Wan 13.9 Plt Count 273 MPV 9.0 Immature Gran % (Auto) 0.400 Neut % (Auto) 83.5 H Lymph % (Auto) 10.8 L [place] % (Auto) 3.4 Eos % (Auto) 1.5 Baso % (Auto) 0.4 Absolute Neuts (auto) 6.6 Absolute Lymphs (auto) 0.86 Nucleated RBC % 0 Sodium 134 L Potassium 3.7 Chloride 102 Carbon Dioxide 26.0 Anion Gap 6 BUN 11 Creatinine 0.82 Estim Creat Clear Calc 93.16 Est GFR (MDRD) Af Amer 95 Est GFR (MDRD) Non-Af 79 BUN/Creatinine Ratio 13.3 Glucose 245 H Calcium 9.4 Troponin I High Sens 32 30 B-Natriuretic Peptide 12.6 Radiography Diagnostic Testing: Clinical Impression(s) from Imaging Studies Chest X-Ray 11/14/23 12:10 IMPRESSION: Normal x-ray examination of the chest. Electronically Signed: Yuan Rodrigez MD at 12:29 EST , Treatment and Re-Evaluation :: ED attending note: I evaluated the patient in conjunction with the MARIELY. I agree with his/her statements and above findings. I have personally performed a face to face assessment of the patient and have reviewed the MARIELY Note. I performed a substantive portion of the visit including all aspects of the following. I personally saw the patient performed chart review, physical exam, reviewed labs, imaging (if obtained), and formulated a treatment and management plan. This note was generated with [employer] dictation software. It may contain incorrect words, spelling, and punctuation that were not noted in review of the chart prior to signing. Discharge Plan Triage Chief Complaint: Chest Pain ED Midlevel Provider: Sara Angeles ED Provider: Virgilio Horton Dx/Rx/DC Orders Clinical Impression: Chest pain, atypical Instructions: Chest Pain [facility] Prescriptions: No Action sertraline [Zoloft] 100 MG tablet 100 mg PO DAILY Zyrtec 10 MG capsule 10 mg PO DAILY norgestimate-ethinyl estradiol 0.18/0.215/0.25 mg-35 mcg (28) tablet 1 tab PO DAILY prednisone 20 mg tablet 40 mg PO DAILY Qty: 8 0RF epinephrine [EpiPen 2-Rudi] 0.3 mg/0.3 mL auto-injector 0.3 mg IM Q15M PRN (Reason: anaphylaxis) Qty: 2 0RF aripiprazole 5 mg tablet 2.5 mg PO QHS dextroamphetamine-amphetamine 30 mg tablet 30 mg PO BID hydrochlorothiazide 25 mg tablet 25 mg PO DAILY labetalol 100 mg tablet 100 mg PO Q12H lisinopril 20 mg tablet 20 mg PO DAILY losartan 25 mg tablet 25 mg PO DAILY Stand Alone Forms: Work / School Excuse Primary Care Provider: Sanam Davis Referrals: Sanam Davis, [employer] [Primary Care Provider] - Activity Restrictions/Additional Instructions: Today your screening tests look normal. Take Tylenol or ibuprofen as needed and follow-up with your doctor. Disposition Disposition: Home, Self Care Discharge Date/Time: 11/14/23 14:18
[2023-11-14 11:30] VITALS: O2SAT 96
[2023-11-14] MEDS: Aspirin 81 MG TAB.CHEW 324 MG PO (11:33)
[2023-11-14 11:49] LABS: Absolute Lymphocyte Count 0.86 X10^3/uL (0.83-4.51); Absolute Neutrophil Count 6.6 X10^3/uL (2.0-7.7); Basophil# 0.03 X10^3/uL; Basophil% 0.4 % (0-1); Eosinophil# 0.12 X10^3/uL; Eosinophils% 1.5 % (0-5); Hematocrit 42.7 % (37-47); Hemoglobin 13.7 g/dL (12.0-15.0); Lymphocyte # 0.86 X10^3/ul (0.83-4.51); Lymphocyte % 10.8 % (19-41); Mean Corp Hgb Conc 32.1 g/dL (32-36); Mean Corpuscular Hgb 28.2 pg (27.0-32.0); Monocyte# 0.27 X10^3/uL; Monocyte% 3.4 % (0-10); NRBC Flagged by Analyzer 0 % (0-5); Neutrophil # 6.63 X10^3/uL (2.7-7.7); Neutrophil % 83.5 % (47-70); Platelet Count 273 K/mm3 (150-450); RBC Distribution Width CV 13.9 % (11.6-14.6); RBC Distribution Width SD 44.6 fl (35.1-43.9); Red Blood Count 4.85 M/mm3 (4.2-5.4); White Blood Count 7.9 K/mm3 (4.4-11.0)
[2023-11-14 11:50] LABS: Anion Gap 6 (5-15); BUN 11 mg/dL (7-18); BUN/Creat Ratio 13.3 RATIO (10-20); Calcium,Total 9.4 mg/dL (8.5-10.1); Chloride 102 mmol/L (98-107); Creatinine, Serum 0.82 mg/dL (0.55-1.02); EST Glomerular Filtration Rate 79 mL/min (>60); Est Glom Filt Rate - Afr Amer 95 mL/min (>60); Estimated Creatinine Clearance 93.16 ml/min; Glucose 245 mg/dL (74-106); Potassium 3.7 mmol/L (3.5-5.1); Sodium Level 134 mmol/L (136-145); Troponin-I HS (w/2H Reflex) 32 pg/mL (3.0-54.0)
--- OUTSIDE RECORDS SUMMARY | 2023-11-14 12:01 | XMS RPT_ITS | CCD ---
Author Name Unknown Address [address] [place] [address] Organization [facility] Care Team Providers Care Boat Camp Operator Name Role Phone Unavailable Primary Care Provider Unavailmario e Knadelfo MANAGER MANUFACTURING.Sanam HERRERA Primary Care Provider KNOBLE, SANAM Primary Care Unavailable KNOBLE, SANAM Attending Unavailable KNOBLE, SANAM Primary Care Unavailable KNOBLE, SANAM Attending Unavailable KNOBLE, SANAM Primary Care Unavailable KNOBLE, SANAM Referring Unavailable KNOBLE, SANAM Primary Care Unavailable KNOBLE, SANAM Referring Unavailable KNOBLE, SANAM Primary Care Unavailable KNOBLE, SANAM Primary Care Unavailable KNOBLE, SANAM Attending Unavailable KNOBLE, SANAM Primary Care Unavailable KNOBLE, SANAM Attending Unavailable KNOBLE, SANAM Primary Care Unavailable KNOBLE, SANAM Attending Unavailable KNOBLE, SANAM Primary Care Unavailable KNOBLE, SANAM Attending Unavailable KNOBLE, SANAM Primary Care Unavailable KNOBLE, SANAM Primary Care Unavailable KNOBLE, SANAM Attending Unavailable KNOBLE, SANAM Primary Care Unavailable KANIKA CONTRERAS R Attending Unavailable KNOBLE, SANAM Primary Care Unavailable KNOBLE, SANAM Referring Unavailable KNOBLE, SANAM Primary Care Unavailable Allergies Allergy Classification Reported Allergen(s) Allergy Type Date of Onset Reaction(s) Facility (18 sources) Amoxicillin; Translations: [AMOXICILLIN] Drug Allergy 9 Rash [facility] Work Phone: (18 sources) Sulfonamides (Antibiotic); Translations: [SULFA (SULFONAMIDE ANTIBIOTICS)] Drug Intolerance 9 Rash, Hives, Shortness of Breath [facility] Work Phone: (17 sources) ceFAZolin; Translations: [CEFAZOLIN] Drug Allergy 3 Vomiting [facility] (17 sources) Cephalexin; Translations: [CEPHALEXIN] Drug Allergy 3 Hives, Itching [facility] (17 sources) Ciprofloxacin; Translations: [CIPROFLOXACIN] Drug Allergy 3 Vomiting [facility] (17 sources) Escitalopram; Translations: [ESCITALOPRAM] Drug Allergy 2 Rash [facility] (17 sources) Penicillins; Translations: [PENICILLINS] Drug Allergy 3 Rash, Swelling [facility] Medications Current Medications Medication Drug Class(es) Dates Sig (Normalized) Sig (Original) cephalexin 500 mg oral capsule (1 source) Cephalosporin Antibacterial Start: 10-26-2021 End: 11-02-2021 take 1 capsule by mouth twice daily cephALEXin (KEFLEX) 500 mg capsule Take 1 capsule by mouth twice daily for 7 days. 14 capsule 0 10/26/2021 11/02/2021 Active Completed/Discontinued Medications Medication Drug Class(es) Dates Sig (Normalized) Sig (Original) amLODIPine 10 mg oral tablet (7 sources) Dihydropyridine Calcium Channel Phuc Start: 06-05-2023 End: 06-05-2023 take 1 tablet by mouth once daily amLODIPine (NORVASC) 10 mg tablet Indications: Hypertension, essential Take 1 tablet by mouth once daily. 30 tablet 0 06/05/2023 06/05/2023 Discontinued Problems Active Problems Problem Classification Problem Date Documented Da te Episodic/Chronic Anxiety disorders (2 sources) Mixed anxiety and depressive disorder; Translations: [Other specified anxiety disorders] Onset: 06-09-2023 06-09-2023 Chronic Disorders of teeth and jaw (1 source) Infection of tooth; Translations: [Periapical abscess without sinus] 05-09-2023 Episodic Essential hypertension (12 sources) Poor hypertension control; Translations: [Essential (primary) hypertension] Onset: 03-10-2023 05-09-2023 Chronic Genitourinary symptoms and ill-defined conditions (1 source) Increased frequency of urination; Translations: [Frequency of micturition] Episodic Headache; including migraine (1 source) Migraine without aura, not refractory ; Translations: [Migraine without aura, not intractable, without status migrainosus] 06-05-2023 Chronic Intestinal infection (1 source) Viral gastroenteritis; Translations: [Viral intestinal infection, unspecified] 06-11-2023 Episodic Other aftercare (1 source) Patient encounter status; Translations: [Other chcf (current) drug therapy] 09-09-2023 Episodic Other diseases of bladder and urethra (1 source) Overactive bladder; Translations: [OAB (overactive bladder)] Onset: 03-10-2023 Chronic Other injuries and conditions due to external causes (1 source) Anaphylaxis; Translations: [Anaphylactic shock, unspecified, sequela] 09-09-2023 Episodic Other injuries and conditions due to external causes (1 source) Anaphylactic shock, unspecified, sequela; Translations: [Anaphylaxis, sequela] Onset: 09-09-2023 Episodic Other upper respiratory infections (1 source) Viral sinusitis; Translations: [Chronic sinusitis, unspecified] Chronic Other upper respiratory infections (1 source) Sore throat symptom; Translations: [Acute pharyngitis, unspecified] 07-15-2023 Episodic Past or Other Problems Problem Classification Problem Date Documented Date Episodic/Chronic Immunizations and screening for infectious disease (3 sources) Encounter for screening for other viral diseases; Translations: [Encounter for screening for human immunodeficiency virus [HIV]] Onset: 03-10-2023 Episodic Malaise and fatigue (1 source) Other fatigue; Translations: [Fatigue, unspecified type] Onset: 03-10-2023 Episodic Other aftercare (1 source) Other chcf (current) drug therapy; Translations: [Medication management] Onset: 03-10-2023 Episodic Other screening for suspected conditions (not mental disorders or infectious disease) (7 sources) Mammography abnormal; Translations: [Other abnormal and inconclusive findings on diagnostic imaging of breast] Onset: 03-10-2023 Episodic Results Test Name Value Interpretation Reference Range Facil ity Vital Signs Date Time Vital Sign Value Performing Clinician Demetri santos 09-09-2023 13:02-0500 Body weight 88 kg Sanam Davis APRN.CNP Work Phone: [facility] 09-09-2023 13:02-0500 Diastolic blood pressure 114 mm[Hg] Sanam Davis APRN.CNP Work Phone: [facility] 09-09-2023 13:02-0500 Heart rate 84 /min Sanam Davis APRN.CNP Work Phone: [facility] 09-09-2023 13:02-0500 Respiratory rate 16 /min Sanam Knoble MANAGER MANUFACTURING.ORDER ENTRY REPRESENTATIVE Work Phone: [facility] 09-09-2023 13:02-0500 Systolic blood pressure 188 mm[Hg] Sanam Knoble MANAGER MANUFACTURING.ORDER ENTRY REPRESENTATIVE Work Phone: [facility] 09-01-2023 13:48-0500 Body weight 89.81 kg Sanam Knoble MANAGER MANUFACTURING.ORDER ENTRY REPRESENTATIVE Work Phone: [facility] 09-01-2023 13:48-0500 Diastolic blood pressure 133 mm[Hg] Sanam Knoble MANAGER MANUFACTURING.ORDER ENTRY REPRESENTATIVE Work Phone: [facility] 09-01-2023 13:48-0500 Systolic blood pressure 199 mm[Hg] Sanam Knoble MANAGER MANUFACTURING.ORDER ENTRY REPRESENTATIVE Work Phone: [facility] 08-14-2023 15:31-0500 Body weight 85.28 kg Sanam Knoble MANAGER MANUFACTURING.ORDER ENTRY REPRESENTATIVE Work Phone: [facility] 08-14-2023 15:31-0500 Diastolic blood pressure 110 mm[Hg] Sanam Knoble MANAGER MANUFACTURING.ORDER ENTRY REPRESENTATIVE Work Phone: [facility] 08-14-2023 15:31-0500 Heart rate 80 /min Sanam Knoble MANAGER MANUFACTURING.ORDER ENTRY REPRESENTATIVE Work Phone: [facility] 08-14-2023 15:31-0500 Respiratory rate 16 /min Sanam Knoble MANAGER MANUFACTURING.ORDER ENTRY REPRESENTATIVE Work Phone: [facility] 08-14-2023 15:31-0500 Systolic blood pressure 200 mm[Hg] Sanam Knoble MANAGER MANUFACTURING.ORDER ENTRY REPRESENTATIVE Work Phone: [facility] 07-15-2023 14:26-0400 Body temperature 97.9 [degF] Kanika SNELL-Elinor Work Phone: [facility] 07-15-2023 14:26-0400 Body weight 88.36 kg Kanika Contreras PA-C Work Phone: [facility] 07-15-2023 14:26-0400 Diastolic blood pressure 106 mm[Hg] Kanika Athy PA-C Work Phone: [facility] 07-15-2023 14:26-0400 Heart rate 80 /min Kanika Athy PA-C Work Phone: [facility] 07-15-2023 14:26-0400 Respiratory rate 18 /min Kanika Athy PA-C Work Phone: [facility] 07-15-2023 14:26-0400 SaO2% (BldA) [Mass fraction] 98 % Kanika Athy PA-C Work Phone: [facility] 07-15-2023 14:26-0400 Systolic blood pressure 188 mm[Hg] Kanika Athy PA-C Work Phone: [facility] 06-11-2023 13:04-0400 Diastolic blood pressure 118 mm[Hg] Beau Pendlebury MANAGER MANUFACTURING.ORDER ENTRY REPRESENTATIVE Work Phone: [facility] 06-11-2023 13:04-0400 Systolic blood pressure 218 mm[Hg] Beau Pendlebury MANAGER MANUFACTURING.ORDER ENTRY REPRESENTATIVE Work Phone: [facility] 06-11-2023 12:50-0400 Body temperature 97.9 [degF] Beau Pendlebury MANAGER MANUFACTURING.ORDER ENTRY REPRESENTATIVE Work Phone: [facility] 06-11-2023 12:50-0400 Body weight 88.45 [facility] MANAGER MANUFACTURING.ORDER ENTRY REPRESENTATIVE Work Phone: [facility] 06-11-2023 12:50-0400 Heart rate 88 /min Beau Pendlebury MANAGER MANUFACTURING.ORDER ENTRY REPRESENTATIVE Work Phone: [facility] 06-11-2023 12:50-0400 Respiratory rate 16 /min Beau Pendlebury MANAGER MANUFACTURING.ORDER ENTRY REPRESENTATIVE Work Phone: [facility] 06-11-2023 12:50-0400 SaO2% (BldA) [Mass fraction] 97 % Beau Pendlebury MANAGER MANUFACTURING.ORDER ENTRY REPRESENTATIVE Work Phone: [facility] 06-09-2023 11:26-0400 Body weight 87.09 kg Sanam Pastoroble MANAGER MANUFACTURING.ORDER ENTRY REPRESENTATIVE Work Phone: [facility] 06-09-2023 11:26-0400 Diastolic blood pressure 90 mm[Hg] Sanam Knoble MANAGER MANUFACTURING.ORDER ENTRY REPRESENTATIVE Work Phone: [facility] 06-09-2023 11:26-0400 Heart rate 85 /min Sanam Knoble MANAGER MANUFACTURING.ORDER ENTRY REPRESENTATIVE Work Phone: [facility] 06-09-2023 11:26-0400 Respiratory rate 16 /min Sanam Knoble MANAGER MANUFACTURING.ORDER ENTRY REPRESENTATIVE Work Phone: [facility] 06-09-2023 11:26-0400 Systolic blood pressure 180 mm[Hg] Sanam Knoble MANAGER MANUFACTURING.ORDER ENTRY REPRESENTATIVE Work Phone: [facility] 06-05-2023 11:13-0400 Body weight 87.09 kg Sanam Pastoroble MANAGER MANUFACTURING.ORDER ENTRY REPRESENTATIVE Work Phone: [facility] 06-05-2023 11:13-0400 Diastolic blood pressure 110 mm[Hg] Sanam Knoble MANAGER MANUFACTURING.ORDER ENTRY REPRESENTATIVE Work Phone: [facility] 06-05-2023 11:13-0400 Heart rate 102 /min Sanam Pastoroble MANAGER MANUFACTURING.ORDER ENTRY REPRESENTATIVE Work Phone: [facility] 06-05-2023 11:13-0400 Respiratory rate 16 /min Sanam Pastoroble MANAGER MANUFACTURING.ORDER ENTRY REPRESENTATIVE Work Phone: [facility] 06-05-2023 11:13-0400 Systolic blood pressure 190 mm[Hg] Sanam Pastoroble MANAGER MANUFACTURING.ORDER ENTRY REPRESENTATIVE Work Phone: [facility] 05-09-2023 19:29-0400 Body temperature 97.2 [degF] Keila Jorge MANAGER MANUFACTURING.ORDER ENTRY REPRESENTATIVE Work Phone: [facility] 05-09-2023 19:29-0400 Body weight 89.54 kg Keila Hawkins-Yordan MANAGER MANUFACTURING.ORDER ENTRY REPRESENTATIVE Work Phone: [facility] 05-09-2023 19:29-0400 Diastolic blood pressure 125 mm[Hg] Keila Praisler-Wood MANAGER MANUFACTURING.ORDER ENTRY REPRESENTATIVE Work Phone: [facility] 05-09-2023 19:29-0400 Heart rate 81 /min Keila Praisler-Wood MANAGER MANUFACTURING.ORDER ENTRY REPRESENTATIVE Work Phone: [facility] 05-09-2023 19:29-0400 Respiratory rate 18 /min Keila Praisler-Wood MANAGER MANUFACTURING.ORDER ENTRY REPRESENTATIVE Work Phone: [facility] 05-09-2023 19:29-0400 SaO2% (BldA) [Mass fraction] 100 % Keila Praisler-Wood MANAGER MANUFACTURING.ORDER ENTRY REPRESENTATIVE Work Phone: [facility] 05-09-2023 19:29-0400 Systolic blood pressure 214 mm[Hg] Keila Praisler-Wood MANAGER MANUFACTURING.ORDER ENTRY REPRESENTATIVE Work Phone: [facility] 10-26-2021 19:55-0500 Body temperature 98.01 [degF] Beau Pendlebury MANAGER MANUFACTURING.ORDER ENTRY REPRESENTATIVE Work Phone: [facility] 10-26-2021 19:55-0500 Body weight 83.19 kg Beau Pendlebury MANAGER MANUFACTURING.ORDER ENTRY REPRESENTATIVE Work Phone: [facility] 10-26-2021 19:55-0500 Diastolic blood pressure 84 mm[Hg] Beau Pendlebury MANAGER MANUFACTURING.ORDER ENTRY REPRESENTATIVE Work Phone: [facility] 10-26-2021 19:55-0500 Heart rate 89 /min Beau Pendlebury MANAGER MANUFACTURING.ORDER ENTRY REPRESENTATIVE Work Phone: [facility] 10-26-2021 19:55-0500 Respiratory rate 18 /min Beau Pendlebury MANAGER MANUFACTURING.ORDER ENTRY REPRESENTATIVE Work Phone: [facility] 10-26-2021 19:55-0500 SaO2% (BldA) [Mass fraction] 98 % Beau Pendlebury MANAGER MANUFACTURING.ORDER ENTRY REPRESENTATIVE Work Phone: [facility] 10-26-2021 19:55-0500 Systolic blood pressure 144 mm[Hg] Beau Pendlebury MANAGER MANUFACTURING.ORDER ENTRY REPRESENTATIVE Work Phone: [facility] Encounters Encounter Date Encounter Type Care Provider Facility Start: 11-03-2023 Refill Sanam rios MANAGER MANUFACTURING.SHARON Work Phone: [facility] Procedures Date Procedure Procedure Detail Performing Clinician Start: 07-15-2023 LUMA Jama MOLECULAR (POC) Kanika Contreras PA-C Work Phone: Start: 03-10-2023 Lipid 1996 panel - S huy or Plasma Sanam Davis APRN.ORDER ENTRY REPRESENTATIVE Work Phone: Start: 03-10-2023 End: 03-10-2023 Mammography Sanam Davis APRN, .CNP Work Phone: Start: 10-26-2021 Urnls dip stick/tabl et rgnt auto w/o microscopy [facility] Provider Plan of Treatment Date Care Activity Detail Author Start: 03-10-2033 Urine microalbumin profile [facility] Start: 03-10-2028 Lipid 1996 panel - S huy or Plasma Lipid Screening [facility] Start: 03-10-2028 Lipid panel Lipid Screening [facility] Start: 03-10-2028 LIPID SCREEN LIPID SCREEN [facility] Start: 06-09-2026 Diabetes Screening Diabetes Screenin g [facility] Start: 03-10-2026 DIABETES SCREEN DIABETES SCREEN [facility] Start: 09-09-2024 Annual PCP Team Returner misbah Disease Visit Annual PCP Team Chronic Disease Visit [facility] Start: 09-01-2024 Annual PCP Team Returner misbah Disease Visit Annual PCP Team Chronic Disease Visit [facility] Start: 08-14-2024 Annual PCP Team Returner misbah Disease Visit Annual PCP Team Chronic Disease Visit [facility] Start: 07-31-2024 Annual PCP Team Returner misbah Disease Visit Annual PCP Team Chronic Disease Visit [facility] Start: 06-09-2024 ANNUAL PCP TEAM SALES AND DISTRIBUTION CLERK MISBAH DISEASE VISIT ANNUAL PCP TEAM CHRONIC DISEASE VISIT [facility] Start: 06-05-2024 ANNUAL PCP TEAM SALES AND DISTRIBUTION CLERK MISBAH DISEASE VISIT ANNUAL PCP TEAM CHRONIC DISEASE VISIT [facility] Start: 03-10-2024 HPV TESTING HPV TESTING [facility] Immunizations Immunization Date Immunization Notes Care Provider Fa cility 03-10-2023 tetanus toxoid, reduced diphtheria toxoid, and acellular pertussis vaccine, adsorbed Mammography Coordinator [facility] 10-22-2019 influenza, injectabl e, quadrivalent, contains preservative Beau Cortes MANAGER MANUFACTURING.ORDER ENTRY REPRESENTATIVE Work Phone: [facility] Work Phone: 10-22-2019 influenza virus vaccine, unspecified formulation Sanam Davis MANAGER MANUFACTURING.ORDER ENTRY REPRESENTATIVE Work Phone: [facility] Payers Date Payer Category Payer Medicaid UHC MEDICAID UHC COMMUNITY [employer]AN MEDICAID [place] [id number] 2022-Present [phone] [address] [place] [address] Medicaid [id number] 2022 Medicaid [id number] 2018 Medicaid UHC MEDICAID UHC COMMUNITY PLAN MEDICAID [id number] 2018-Present [phone] [address] [place] [address] Medicaid [id number] Social History Date Type Detail Facility Start: 10-03-2018 End: 03-10-2023 Tobacco smoking status NHIS Smokes tobacco daily [facility] Work Phone: Start: 10-03-2018 End: 03-10-2023 Tobacco use and exposure Smokeless tobacco non-user [facility] Work Phone: Start: 1975 [facility] Exposure to SARS-CoV -2 (event) Not sure [facility] Work Phone: History of tobacco use [facility]igarette [facility] Work Phone: Start: 03-09-2023 End: 03-10-2023 Cigarettes smoked current (pack per day) - Reported 0.5 [facility] Start: 03-10-2023 End: 10-29-2023 Alcohol intake Ex-drinker (finding) [facility] Start: 03-09-2023 History SDOH Alcohol Frequency 2 [facility] Start: 03-09-2023 History SDOH Alcohol Std Drinks 1 [facility] Start: 03-09-2023 History SDOH Social Connections Phone 3 [facility] Start: 03-09-2023 History SDOH Social Connections Meetings 98 [facility] Start: 03-09-2023 History SDOH Social Connections Living 7 [facility] Start: 03-09-2023 History SDOH Stress 5 [facility] Start: 03-09-2023 End: 09-01-2023 Social connection and isolation panel [facility] Do you belong to any clubs or organizations such as sabianism groups, unions, fraternal or athletic groups, or school groups? No [facility] How often do you att end meetings of the clubs or organizations you belong to? Patient refused [facility] Are you now , , , , never or living with a partner? Never [facility] How often to you hav e a drink containing alcohol? Monthly or less [facility] How many standard dr inks containing alcohol do you have on a typical day? 1 or 2 [facility] How often do you hav e 6 or more drinks on 1 occasion? Never [facility] How hard is it for y ou to pay for the very basics like food, housing, medical care, and heating Somewhat hard [facility] Do you feel stress - tense, restless, nervous, or anxious, or unable to sleep at night because your mind is troubled all the time - these days [OSQ] Very much [facility] (I/We) worried wheth er (my/our) food would run out before (I/we) got money to buy more. Sometimes true [facility] The food that (I/we) bought just didn't last, and (I/we) didn't have money to get more. Never true [facility] In the past 12 month s, was there a time when you were not able to pay the mortgage or rent on time? Yes [facility] Clinical Notes 10-26-2021 to 11-06-2023 Telephone Encounter - Cintia Hill LPN - 11/03/2023 10:01 AM Sanam Pichardo APRN.SHARON - 09/09/2023 1:07 PM Sanam Pichardo APRN.CNP - 09/01/2023 1:50 PM ESTPatient Instructions Note Date & Type Note Facility 11-06-2023 Note HNO ID: [id number] Author: ?, ?, ? Service: ? Author Type: ? Type: Progress Notes Filed: 11/06/2023 12:52 Note Text: 3rd failed attempt to schedule colonoscopy. Left VM, sent MyChart, and letter. JN 11/06 [facility] 11-03-2023 Miscellaneous Notes Patient has been identified by name and date of : Yes, Patient phones for refill(s): Requested Prescriptions Pending Prescriptions Disp Refills lisinopril (ZESTRIL) 20 mg tablet [Pharmacy Med Name: LISINOPRIL 20 MG TABLET] 30 tablet 0 Sig: take 1 tablet by mouth once daily losartan (COZAAR) 25 mg tablet [Pharmacy Med Name: LOSARTAN POTASSIUM 25 MG TAB] 30 tablet 0 Sig: take 1 tablet by mouth once daily Date of last office visit in primary care: 09/09/2023 Date of next office visit in primary care: Visit date not found Please advise. Thank you. Cintia Hill LPN. documented in this encounter [facility] 10-29-2023 Note HNO ID: [id number] Author: CRISTEL STEVEN APRN.ORDER ENTRY REPRESENTATIVE Service: ? Author Type: Nurse Practitioner Type: Progress Notes Filed: 10/29/2023 15:32 Note Text: Subjective The history is provided by the patient. No sign language teacher was used. HPI Asia Cordova is a 48 year old female who presents today for CC of painful swollen cyst on face. This started about 3 days ago. She has used warm heat/ice with out relief. Small amount of drainage in the beginning, none today. She also has had off and on ruq pain, that has never been evaluated. Tender to touch. States she is under a lot of stress. BP 143/95 Pulse 78 Temp 36.3 ?C (97.4 ?F) Resp 18 Wt 90.3 kg (199 lb) LMP 10/03/2018 SpO2 100% BMI 35.25 kg/m? Social History Tobacco Use Smoking status: Every Day Packs/day: 0.50 Years: 30.00 Additional pack years: 0.00 Total pack years: 15.00 Types: Cigarettes Smokeless tobacco: Never Vaping Use Vaping Use: Never used Substance Use Topics Alcohol use: Not Currently Drug use: Never PAST MEDICAL HISTORY Diagnosis Date Anaphylaxis Anxiety and depression Environmental allergies Migraines Renal calculi I have confirmed and edited as necessary, the [facility] Review of Systems Constitutional: Negative for chills and fever. Gastrointestinal: Positive for abdominal pain (ruq). Negative for diarrhea, nausea and vomiting. Musculoskeletal: Negative for joint pain and myalgias. Skin: Negative for itching and rash. All other systems reviewed and are negative. Objective Physical Exam Vitals and nursing note reviewed. Constitutional: Appearance: Normal appearance. Abdominal: General: Bowel sounds are normal. There is no abdominal bruit. Palpations: Abdomen is not rigid. There is no mass or pulsatile mass. Tenderness: There is abdominal tenderness in the right upper quadrant. There is no guarding or rebound. Negative signs include Fairbanks's sign and McBurney's sign. Skin: Findings: Erythema and rash present. Rash is nodular. Comments: [place] sized painful lump, tender to touch. Neurological: Mental Status: She is alert and oriented to person, place, and time. Psychiatric: Mood and Affect: Affect normal. ASSESSMENT/PLAN: 1. Boil, face - ICD9: 680.0, ICD10: L02.02 (primary diagnosis) Will start on Doxycyline due to allergies. Mupirocin topically Warm compresses 2. RUQ pain - ICD9: 789.01, ICD10: R10.11 - appointment Friday with PCP - Advise to go to ER if pain worsens Diagnosis and treatment plan were discussed and questions were answered to the patient's satisfaction. Pt acknowledged understanding of concepts and follow up plan. Specific signs and symptoms that would indicate the need for higher level of care were discussed in detail warranting prompt ER evaluation. Cristel Steven APRN.ORDER ENTRY REPRESENTATIVE [facility] 09-09-2023 Note HNO ID: [id number] Author: Sanam Davis APRN.SHARON Service: ? Author Type: Nurse Practitioner Type: Progress Notes Filed: 09/09/2023 1:18 PM Note Text: Chief Complaint Patient presents with: Follow Up HPI Asia Cordova is a 48 year old female who presents here today for Above Complaints.. Patient presents for BP check. Patient reports she had to use her epi-pen today. Patient reports she has been taking medications as directed. Past medical history, appointments, medications, allergies reviewed. Previous Medical History PAST MEDICAL HISTORY Diagnosis Date Anaphylaxis Anxiety and depression Environmental allergies Migraines Renal calculi Previous Surgical History PAST SURGICAL HISTORY Procedure Laterality Date DELIVERY ONLY , low transverse PAST SURGICAL HISTORY OF cold knife conization Family History FAMILY HISTORY Problem Relation Age of Onset Kidney failure Mother Diabetes Mother Hypertension Mother Neuropathy Mother Cervical Cancer Mother Colon Cancer Mother Rheumatologic disease Mother other (ddd) Mother Brain Cancer Father Diabetes Father Hypertension Father Depression Sister ADD/ADHD Sister Depression Brother Patient Allergies ALLERGIES Allergen Reactions Penicillins Rash, Swelling Amoxicillin Rash Cefazolin Vomiting Cephalexin Hives, Itching Ciprofloxacin Vomiting Lexapro [Escitalopr* Rash Sulfa (Sulfonamide * Rash, Hives, Shortness of Breath Current Medications Current Outpatient Medications on File Prior to Visit Medication Sig labetalol (TRANDATE) 100 mg tablet Take 1 tablet by mouth two times a day. losartan (COZAAR) 25 mg tablet take 1 tablet by mouth once daily lisinopril (ZESTRIL) 20 mg tablet take 1 tablet by mouth once daily hydroCHLOROthiazide 12.5 mg capsule Take 1 capsule by mouth once daily. sertraline 200 mg capsule Take 1 capsule (200 mg) by mouth once daily. riboflavin, vitamin B2, 400 mg tab Take 1 tablet by mouth once daily. Amphetamine-Dextroamphetamine (ADDERALL) 30 mg tablet Take 30 mg by mouth twice daily. dextroamphetamine-amphetamine (ADDERALL) 20 mg tablet Take 20 mg by mouth once daily. cloNIDine HCl (CATAPRES) 0.2 mg tablet Take 0.2 mg by mouth three times daily. LORazepam (ATIVAN) 1 mg tablet Take 1 mg by mouth twice daily. Norgestimate-Ethinyl Estradiol 0.18/0.215/0.25 mg-35 mcg (28) cetirizine HCl (ZYRTEC ORAL) Take by mouth. No current facility-administered medications on file prior to visit. Social History Social History Tobacco Use Smoking status: Every Day Packs/day: 0.50 Years: 30.00 Additional pack years: 0.00 Total pack years: 15.00 Types: Cigarettes Smokeless tobacco: Never Vaping Use Vaping Use: Never used Substance Use Topics Alcohol use: Not Currently Drug use: Never Review of Symptoms REVIEW OF SYSTEMS SEE HPI EXAM: BP 188/114 Pulse 84 Resp 16 Wt 88 kg (194 lb) LMP 10/03/2018 BMI 34.37 kg/m? General Appearance: Well appearing, alert, in no acute distress, well-hydrated, well nourished.. Lungs: Lungs clear to auscultation. No wheezing, rhonchi, rales.. Heart: RRR without murmur, gallop, or rubs. No ectopy. Health Maintenance List Pneumococcal Vaccine(1 - PCV) Never done BP Controlled (<130/80) Never done Colorectal Cancer Screening Never done Influenza Vaccine(1) due on 05/30/2023 Covid-19 Vaccine(3 - season) due on 05/30/2023 Pap Testing due on 03/10/2024 HPV Testing due on 03/10/2024 Mammogram Screening due on 03/10/2024 Annual PCP Team Chronic Disease Visit due on 09/01/2024 Diabetes Screening due on 06/09/2026 Lipid Screening due on 03/10/2028 DTaP,Tdap,Td Vaccine(2 - Td or Tdap) due on 03/10/2033 Hepatitis C Screening Completed HIV Screening Completed Hepatitis B Vaccine Discontinued Depression Assessment Discontinued ASSESSMENT/PLAN: 1. Medication management - ICD9: V58.69, ICD10: Z79.899 (primary diagnosis) - BASIC METABOLIC PNL 2. Hypertension, essential - ICD9: 401.9, ICD10: I10 - Uncontrolled - Increase hydrochlorothiazide - Recommend home blood pressure monitoring, to bring results to next visit - Encouraged sodium restriction, DASH or Mediterranean diet - Recommend regular aerobic exercise - Discussed need for and benefit of weight loss. BMI 34.37 kg/(m2) - HYDROCHLOROTHIAZIDE 25 MG TABLET Sanam Davis APRN.[facility] 09-09-2023 History of Present illness Narrative Chief Complaint Patient presents with: Follow Up HPI Asia Cordova is a 48 year old female who presents here today for Above Complaints.. Patient presents for BP check. Patient reports she had to use her epi-pen today. Patient reports she has been taking medications as directed. Past medical history, appointments, medications, allergies reviewed. Previous Medical History PAST MEDICAL HISTORY Diagnosis Date Anaphylaxis Anxiety and depression Environmental allergies Migraines Renal calculi Previous Surgical History PAST SURGICAL HISTORY Procedure Laterality Date DELIVERY ONLY , low transverse PAST SURGICAL HISTORY OF cold knife conization Family History FAMILY HISTORY Problem Relation Age of Onset Kidney failure Mother Diabetes Mother Hypertension Mother Neuropathy Mother Cervical Cancer Mother Colon Cancer Mother Rheumatologic disease Mother other (ddd) Mother Brain Cancer Father Diabetes Father Hypertension Father Depression Sister ADD/ADHD Sister Depression Brother Patient Allergies ALLERGIES Allergen Reactions Penicillins Rash, Swelling Amoxicillin Rash Cefazolin Vomiting Cephalexin Hives, Itching Ciprofloxacin Vomiting Lexapro [Escitalopr* Rash Sulfa (Sulfonamide * Rash, Hives, Shortness of Breath Current Medications Current Outpatient Medications on File Prior to Visit Medication Sig labetalol (TRANDATE) 100 mg tablet Take 1 tablet by mouth two times a day. losartan (COZAAR) 25 mg tablet take 1 tablet by mouth once daily lisinopril (ZESTRIL) 20 mg tablet take 1 tablet by mouth once daily hydroCHLOROthiazide 12.5 mg capsule Take 1 capsule by mouth once daily. sertraline 200 mg capsule Take 1 capsule (200 mg) by mouth once daily. riboflavin, vitamin B2, 400 mg tab Take 1 tablet by mouth once daily. Amphetamine-Dextroamphetamine (ADDERALL) 30 mg tablet Take 30 mg by mouth twice daily. dextroamphetamine-amphetamine (ADDERALL) 20 mg tablet Take 20 mg by mouth once daily. cloNIDine HCl (CATAPRES) 0.2 mg tablet Take 0.2 mg by mouth three times daily. LORazepam (ATIVAN) 1 mg tablet Take 1 mg by mouth twice daily. Norgestimate-Ethinyl Estradiol 0.18/0.215/0.25 mg-35 mcg (28) cetirizine HCl (ZYRTEC ORAL) Take by mouth. No current facility-administered medications on file prior to visit. Social History Social History Tobacco Use Smoking status: Every Day Packs/day: 0.50 Years: 30.00 Additional pack years: 0.00 Total pack years: 15.00 Types: Cigarettes Smokeless tobacco: Never Vaping Use Vaping Use: Never used Substance Use Topics Alcohol use: Not Currently Drug use: Never Review of Symptoms REVIEW OF SYSTEMS SEE HPI EXAM: BP 188/114 Pulse 84 Resp 16 Wt 88 kg (194 lb) LMP 10/03/2018 BMI 34.37 kg/m General Appearance: Well appearing, alert, in no acute distress, well-hydrated, well nourished.. Lungs: Lungs clear to auscultation. No wheezing, rhonchi, rales.. Heart: RRR without murmur, gallop, or rubs. No ectopy. Health Maintenance List Pneumococcal Vaccine(1 - PCV) Never done BP Controlled (<130/80) Never done Colorectal Cancer Screening Never done Influenza Vaccine(1) due on 05/30/2023 Covid-19 Vaccine(3 - season) due on 05/30/2023 Pap Testing due on 03/10/2024 HPV Testing due on 03/10/2024 Mammogram Screening due on 03/10/2024 Annual PCP Team Chronic Disease Visit due on 09/01/2024 Diabetes Screening due on 06/09/2026 Lipid Screening due on 03/10/2028 DTaP,Tdap,Td Vaccine(2 - Td or Tdap) due on 03/10/2033 Hepatitis C Screening Completed HIV Screening Completed Hepatitis B Vaccine Discontinued Depression Assessment Discontinued ASSESSMENT/PLAN: 1. Medication management - ICD9: V58.69, ICD10: Z79.899 (primary diagnosis) - BASIC METABOLIC PNL 2. Hypertension, essential - ICD9: 401.9, ICD10: I10 - Uncontrolled - Increase hydrochlorothiazide - Recommend home blood pressure monitoring, to bring results to next visit - Encouraged sodium restriction, DASH or Mediterranean diet - Recommend regular aerobic exercise - Discussed need for and benefit of weight loss. BMI 34.37 kg/(m^2) - HYDROCHLOROTHIAZIDE 25 MG TABLET Sanam Davis APRN.ORDER ENTRY REPRESENTATIVE documented in this encounter [facility] 09-01-2023 Note HNO ID: [id number] Author: Sanam Davis APRN.SHARON Service: ? Author Type: Nurse Practitioner Type: Progress Notes Filed: 09/01/2023 2:02 PM Note Text: Chief Complaint Patient presents with: ED Follow-up HPI Asia Cordova is a 48 year old female who presents here today for Above Complaints.. Patient presents for hospital follow up. Patient was sent to ER from office 08/14 for BP 200/110. Patient reports she is very stressed currently. Patient was given labetalol in ER which was very effective at lowering BP. Past medical history, appointments, medications, allergies reviewed. Previous Medical History PAST MEDICAL HISTORY Diagnosis Date Anaphylaxis Anxiety and depression Environmental allergies Migraines Renal calculi Previous Surgical History PAST SURGICAL HISTORY Procedure Laterality Date DELIVERY ONLY , low transverse PAST SURGICAL HISTORY OF cold knife conization Family History FAMILY HISTORY Problem Relation Age of Onset Kidney failure Mother Diabetes Mother Hypertension Mother Neuropathy Mother Cervical Cancer Mother Colon Cancer Mother Rheumatologic disease Mother other (ddd) Mother Brain Cancer Father Diabetes Father Hypertension Father Depression Sister ADD/ADHD Sister Depression Brother Patient Allergies ALLERGIES Allergen Reactions Penicillins Rash, Swelling Amoxicillin Rash Cefazolin Vomiting Cephalexin Hives, Itching Ciprofloxacin Vomiting Lexapro [Escitalopr* Rash Sulfa (Sulfonamide * Rash, Hives, Shortness of Breath Current Medications Current Outpatient Medications on File Prior to Visit Medication Sig losartan (COZAAR) 25 mg tablet take 1 tablet by mouth once daily lisinopril (ZESTRIL) 20 mg tablet take 1 tablet by mouth once daily hydroCHLOROthiazide 12.5 mg capsule Take 1 capsule by mouth once daily. sertraline 200 mg capsule Take 1 capsule (200 mg) by mouth once daily. riboflavin, vitamin B2, 400 mg tab Take 1 tablet by mouth once daily. Amphetamine-Dextroamphetamine (ADDERALL) 30 mg tablet Take 30 mg by mouth twice daily. dextroamphetamine-amphetamine (ADDERALL) 20 mg tablet Take 20 mg by mouth once daily. cloNIDine HCl (CATAPRES) 0.2 mg tablet Take 0.2 mg by mouth three times daily. LORazepam (ATIVAN) 1 mg tablet Take 1 mg by mouth twice daily. Norgestimate-Ethinyl Estradiol 0.18/0.215/0.25 mg-35 mcg (28) cetirizine HCl (ZYRTEC ORAL) Take by mouth. No current facility-administered medications on file prior to visit. Social History Social History Tobacco Use Smoking status: Every Day Packs/day: 0.50 Years: 30.00 Additional pack years: 0.00 Total pack years: 15.00 Types: Cigarettes Smokeless tobacco: Never Vaping Use Vaping Use: Never used Substance Use Topics Alcohol use: Not Currently Drug use: Never Review of Symptoms REVIEW OF SYSTEMS SEE HPI EXAM: BP (!) 199/133 Pulse (P) 72 Resp (P) 18 Wt 89.8 kg (198 lb) LMP 10/03/2018 SpO2 (P) 99% BMI 35.07 kg/m? General Appearance: Well appearing, alert, in no acute distress, well-hydrated, well nourished.. Lungs: Lungs clear to auscultation. No wheezing, rhonchi, rales.. Heart: RRR without murmur, gallop, or rubs. No ectopy. Health Maintenance List Pneumococcal Vaccine(1 - PCV) Never done BP Controlled (<130/80) Never done Colorectal Cancer Screening Never done Influenza Vaccine(1) due on 05/30/2023 Covid-19 Vaccine(3 - season) due on 05/30/2023 Pap Testing due on 03/10/2024 HPV Testing due on 03/10/2024 Mammogram Screening due on 03/10/2024 Annual PCP Team Chronic Disease Visit due on 08/14/2024 Diabetes Screening due on 06/09/2026 Lipid Screening due on 03/10/2028 DTaP,Tdap,Td Vaccine(2 - Td or Tdap) due on 03/10/2033 Hepatitis C Screening Completed HIV Screening Completed Hepatitis B Vaccine Discontinued Depression Assessment Discontinued ASSESSMENT/PLAN: 1. Hypertension, essential - ICD9: 401.9, ICD10: I10 - Uncontrolled - Continue current medications - Start labetalol - Recommend home blood pressure monitoring, to bring results to next visit - Encouraged sodium restriction, DASH or Mediterranean diet - Recommend regular aerobic exercise Sanam Davis APRN.[facility] 09-01-2023 History of Present illness Narrative Chief Complaint Patient presents with: ED Follow-up HPI Asia Cordova is a 48 year old female who presents here today for Above Complaints.. Patient presents for hospital follow up. Patient was sent to ER from office 08/14 for BP 200/110. Patient reports she is very stressed currently. Patient was given labetalol in ER which was very effective at lowering BP. Past medical history, appointments, medications, allergies reviewed. Previous Medical History PAST MEDICAL HISTORY Diagnosis Date Anaphylaxis Anxiety and depression Environmental allergies Migraines Renal calculi Previous Surgical History PAST SURGICAL HISTORY Procedure Laterality Date DELIVERY ONLY , low transverse PAST SURGICAL HISTORY OF cold knife conization Family History FAMILY HISTORY Problem Relation Age of Onset Kidney failure Mother Diabetes Mother Hypertension Mother Neuropathy Mother Cervical Cancer Mother Colon Cancer Mother Rheumatologic disease Mother other (ddd) Mother Brain Cancer Father Diabetes Father Hypertension Father Depression Sister ADD/ADHD Sister Depression Brother Patient Allergies ALLERGIES Allergen Reactions Penicillins Rash, Swelling Amoxicillin Rash Cefazolin Vomiting Cephalexin Hives, Itching Ciprofloxacin Vomiting Lexapro [Escitalopr* Rash Sulfa (Sulfonamide * Rash, Hives, Shortness of Breath Current Medications Current Outpatient Medications on File Prior to Visit Medication Sig losartan (COZAAR) 25 mg tablet take 1 tablet by mouth once daily lisinopril (ZESTRIL) 20 mg tablet take 1 tablet by mouth once daily hydroCHLOROthiazide 12.5 mg capsule Take 1 capsule by mouth once daily. sertraline 200 mg capsule Take 1 capsule (200 mg) by mouth once daily. riboflavin, vitamin B2, 400 mg tab Take 1 tablet by mouth once daily. Amphetamine-Dextroamphetamine (ADDERALL) 30 mg tablet Take 30 mg by mouth twice daily. dextroamphetamine-amphetamine (ADDERALL) 20 mg tablet Take 20 mg by mouth once daily. cloNIDine HCl (CATAPRES) 0.2 mg tablet Take 0.2 mg by mouth three times daily. LORazepam (ATIVAN) 1 mg tablet Take 1 mg by mouth twice daily. Norgestimate-Ethinyl Estradiol 0.18/0.215/0.25 mg-35 mcg (28) cetirizine HCl (ZYRTEC ORAL) Take by mouth. No current facility-administered medications on file prior to visit. Social History Social History Tobacco Use Smoking status: Every Day Packs/day: 0.50 Years: 30.00 Additional pack years: 0.00 Total pack years: 15.00 Types: Cigarettes Smokeless tobacco: Never Vaping Use Vaping Use: Never used Substance Use Topics Alcohol use: Not Currently Drug use: Never Review of Symptoms REVIEW OF SYSTEMS SEE HPI EXAM: BP (!) 199/133 Pulse (P) 72 Resp (P) 18 Wt 89.8 kg (198 lb) LMP 10/03/2018 SpO2 (P) 99% BMI 35.07 kg/m General Appearance: Well appearing, alert, in no acute distress, well-hydrated, well nourished.. Lungs: Lungs clear to auscultation. No wheezing, rhonchi, rales.. Heart: RRR without murmur, gallop, or rubs. No ectopy. Health Maintenance List Pneumococcal Vaccine(1 - PCV) Never done BP Controlled (<130/80) Never done Colorectal Cancer Screening Never done Influenza Vaccine(1) due on 05/30/2023 Covid-19 Vaccine(3 - season) due on 05/30/2023 Pap Testing due on 03/10/2024 HPV Testing due on 03/10/2024 Mammogram Screening due on 03/10/2024 Annual PCP Team Chronic Disease Visit due on 08/14/2024 Diabetes Screening due on 06/09/2026 Lipid Screening due on 03/10/2028 DTaP,Tdap,Td Vaccine(2 - Td or Tdap) due on 03/10/2033 Hepatitis C Screening Completed HIV Screening Completed Hepatitis B Vaccine Discontinued Depression Assessment Discontinued ASSESSMENT/PLAN: 1. Hypertension, essential - ICD9: 401.9, ICD10: I10 - Uncontrolled - Continue current medications - Start labetalol - Recommend home blood pressure monitoring, to bring results to next visit - Encouraged sodium restriction, DASH or Mediterranean diet - Recommend regular aerobic exercise Sanam Davis APRN.ORDER ENTRY REPRESENTATIVE documented in this encounter [facility] 08-25-2023 Miscellaneous Notes Patient phones requesting refills as follows: Requested Prescriptions Pending Prescriptions Disp Refills losartan (COZAAR) 25 mg tablet [Pharmacy Med Name: LOSARTAN POTASSIUM 25 MG TAB] 30 tablet 0 Sig: take 1 tablet by mouth once daily lisinopril (ZESTRIL) 20 mg tablet [Pharmacy Med Name: LISINOPRIL 20 MG TABLET] 30 tablet 0 Sig: take 1 tablet by mouth once daily [facility] 08/14/23 NOV no upcoming appt Please review and advise. Grady Dickey documented in this encounter [facility] 08-14-2023 Note HNO ID: [id number] Author: Sanam Davis APRN.ORDER ENTRY REPRESENTATIVE Service: ? Author Type: Nurse Practitioner Type: Progress Notes Filed: 08/14/2023 3:41 PM Note Text: Chief Complaint Patient presents with: Follow Up: Blood pressure HPI Asia Cordova is a 48 year old female who presents here today for Above Complaints.. Patient presents for BP check. Past medical history, appointments, medications, allergies reviewed. Previous Medical History PAST MEDICAL HISTORY Diagnosis Date Anaphylaxis Anxiety and depression Environmental allergies Migraines Renal calculi Previous Surgical History PAST SURGICAL HISTORY Procedure Laterality Date DELIVERY ONLY , low transverse PAST SURGICAL HISTORY OF cold knife conization Family History FAMILY HISTORY Problem Relation Age of Onset Kidney failure Mother Diabetes Mother Hypertension Mother Neuropathy Mother Cervical Cancer Mother Colon Cancer Mother Rheumatologic disease Mother other (ddd) Mother Brain Cancer Father Diabetes Father Hypertension Father Depression Sister ADD/ADHD Sister Depression Brother Patient Allergies ALLERGIES Allergen Reactions Penicillins Rash, Swelling Amoxicillin Rash Cefazolin Vomiting Cephalexin Hives, Itching Ciprofloxacin Vomiting Lexapro [Escitalopr* Rash Sulfa (Sulfonamide * Rash, Hives, Shortness of Breath Current Medications Current Outpatient Medications on File Prior to Visit Medication Sig losartan (COZAAR) 25 mg tablet Take 1 tablet by mouth once daily. lisinopril (ZESTRIL) 20 mg tablet Take 1 tablet by mouth once daily. hydroCHLOROthiazide 12.5 mg capsule Take 1 capsule by mouth once daily. sertraline 200 mg capsule Take 1 capsule (200 mg) by mouth once daily. riboflavin, vitamin B2, 400 mg tab Take 1 tablet by mouth once daily. Amphetamine-Dextroamphetamine (ADDERALL) 30 mg tablet Take 30 mg by mouth twice daily. dextroamphetamine-amphetamine (ADDERALL) 20 mg tablet Take 20 mg by mouth once daily. cloNIDine HCl (CATAPRES) 0.2 mg tablet Take 0.2 mg by mouth three times daily. LORazepam (ATIVAN) 1 mg tablet Take 1 mg by mouth twice daily. Norgestimate-Ethinyl Estradiol 0.18/0.215/0.25 mg-35 mcg (28) cetirizine HCl (ZYRTEC ORAL) Take by mouth. No current facility-administered medications on file prior to visit. Social History Social History Tobacco Use Smoking status: Every Day Packs/day: 0.50 Years: 30.00 Additional pack years: 0.00 Total pack years: 15.00 Types: Cigarettes Smokeless tobacco: Never Vaping Use Vaping Use: Never used Substance Use Topics Alcohol use: Not Currently Drug use: Never Review of Symptoms REVIEW OF SYSTEMS SEE HPI EXAM: BP 200/110 Pulse 80 Resp 16 Wt 85.3 kg (188 lb) LMP 10/03/2018 BMI 33.30 kg/m? General Appearance: Well appearing, alert, in no acute distress, well-hydrated, well nourished.. Health Maintenance List Pneumococcal Vaccine(1 - PCV) Never done BP Controlled (<130/80) Never done Colorectal Cancer Screening Never done Influenza Vaccine(1) due on 05/30/2023 Covid-19 Vaccine(3 - season) due on 05/30/2023 Pap Testing due on 03/10/2024 HPV Testing due on 03/10/2024 Mammogram Screening due on 03/10/2024 Annual PCP Team Chronic Disease Visit due on 07/31/2024 Diabetes Screening due on 06/09/2026 Lipid Screening due on 03/10/2028 DTaP,Tdap,Td Vaccine(2 - Td or Tdap) due on 03/10/2033 Hepatitis C Screening Completed HIV Screening Completed Hepatitis B Vaccine Discontinued Depression Assessment Discontinued ASSESSMENT/PLAN: 1. Hypertension, essential - ICD9: 401.9, ICD10: I10 -Worsening control. Patient sent to ER due to multiple readings over 200 sbp. Patient declined EMS transport Sanam Davis APRN.[facility] 08-14-2023 History of Present illness Narrative Chief Complaint Patient presents with: Follow Up: Blood pressure HPI Asia Cordova is a 48 year old female who presents here today for Above Complaints.. Patient presents for BP check. Past medical history, appointments, medications, allergies reviewed. Previous Medical History PAST MEDICAL HISTORY Diagnosis Date Anaphylaxis Anxiety and depression Environmental allergies Migraines Renal calculi Previous Surgical History PAST SURGICAL HISTORY Procedure Laterality Date DELIVERY ONLY , low transverse PAST SURGICAL HISTORY OF cold knife conization Family History FAMILY HISTORY Problem Relation Age of Onset Kidney failure Mother Diabetes Mother Hypertension Mother Neuropathy Mother Cervical Cancer Mother Colon Cancer Mother Rheumatologic disease Mother other (ddd) Mother Brain Cancer Father Diabetes Father Hypertension Father Depression Sister ADD/ADHD Sister Depression Brother Patient Allergies ALLERGIES Allergen Reactions Penicillins Rash, Swelling Amoxicillin Rash Cefazolin Vomiting Cephalexin Hives, Itching Ciprofloxacin Vomiting Lexapro [Escitalopr* Rash Sulfa (Sulfonamide * Rash, Hives, Shortness of Breath Current Medications Current Outpatient Medications on File Prior to Visit Medication Sig losartan (COZAAR) 25 mg tablet Take 1 tablet by mouth once daily. lisinopril (ZESTRIL) 20 mg tablet Take 1 tablet by mouth once daily. hydroCHLOROthiazide 12.5 mg capsule Take 1 capsule by mouth once daily. sertraline 200 mg capsule Take 1 capsule (200 mg) by mouth once daily. riboflavin, vitamin B2, 400 mg tab Take 1 tablet by mouth once daily. Amphetamine-Dextroamphetamine (ADDERALL) 30 mg tablet Take 30 mg by mouth twice daily. dextroamphetamine-amphetamine (ADDERALL) 20 mg tablet Take 20 mg by mouth once daily. cloNIDine HCl (CATAPRES) 0.2 mg tablet Take 0.2 mg by mouth three times daily. LORazepam (ATIVAN) 1 mg tablet Take 1 mg by mouth twice daily. Norgestimate-Ethinyl Estradiol 0.18/0.215/0.25 mg-35 mcg (28) cetirizine HCl (ZYRTEC ORAL) Take by mouth. No current facility-administered medications on file prior to visit. Social History Social History Tobacco Use Smoking status: Every Day Packs/day: 0.50 Years: 30.00 Additional pack years: 0.00 Total pack years: 15.00 Types: Cigarettes Smokeless tobacco: Never Vaping Use Vaping Use: Never used Substance Use Topics Alcohol use: Not Currently Drug use: Never Review of Symptoms REVIEW OF SYSTEMS SEE HPI EXAM: BP 200/110 Pulse 80 Resp 16 Wt 85.3 kg (188 lb) LMP 10/03/2018 BMI 33.30 kg/m General Appearance: Well appearing, alert, in no acute distress, well-hydrated, well nourished.. Health Maintenance List Pneumococcal Vaccine(1 - PCV) Never done BP Controlled (<130/80) Never done Colorectal Cancer Screening Never done Influenza Vaccine(1) due on 05/30/2023 Covid-19 Vaccine(3 - 2022- season) due on 05/30/2023 Pap Testing due on 03/10/2024 HPV Testing due on 03/10/2024 Mammogram Screening due on 03/10/2024 Annual PCP Team Chronic Disease Visit due on 07/31/2024 Diabetes Screening due on 06/09/2026 Lipid Screening due on 03/10/2028 DTaP,Tdap,Td Vaccine(2 - Td or Tdap) due on 03/10/2033 Hepatitis C Screening Completed HIV Screening Completed Hepatitis B Vaccine Discontinued Depression Assessment Discontinued ASSESSMENT/PLAN: 1. Hypertension, essential - ICD9: 401.9, ICD10: I10 -Worsening control. Patient sent to ER due to multiple readings over 200 sbp. Patient declined EMS transport Sanam Davis APRN.ORDER ENTRY REPRESENTATIVE documented in this encounter [facility] 07-31-2023 Note HNO ID: [id number] Author: Sanam Davis APRN.ORDER ENTRY REPRESENTATIVE Service: ? Author Type: Nurse Practitioner Type: Progress Notes Filed: 07/31/2023 3:59 PM Note Text: Chief Complaint Patient presents with: Follow Up: Blood pressure HPI Asia Cordova is a 48 year old female who presents here today for Above Complaints.. Pt here for BP recheck. States she carry a lot of stress d/t caring for her mother and oldest son. Pt sees psychiatry for anxiety/depression. Discussed diet- not eating the most well balanced diet. HTN: Patient is compliant with meds Yes Monitors bp at home: No. Denies side effects: No. Chest pain: No. Dyspnea: No. Edema: No. Palpitations: No. Syncope: No. Headache: No. Dizziness: No. Past medical history, appointments, medications, allergies reviewed. Previous Medical History PAST MEDICAL HISTORY Diagnosis Date Anaphylaxis Anxiety and depression Environmental allergies Migraines Renal calculi Previous Surgical History PAST SURGICAL HISTORY Procedure Laterality Date DELIVERY ONLY , low transverse PAST SURGICAL HISTORY OF cold knife conization Family History FAMILY HISTORY Problem Relation Age of Onset Kidney failure Mother Diabetes Mother Hypertension Mother Neuropathy Mother Cervical Cancer Mother Colon Cancer Mother Rheumatologic disease Mother other (ddd) Mother Brain Cancer Father Diabetes Father Hypertension Father Depression Sister ADD/ADHD Sister Depression Brother Patient Allergies ALLERGIES Allergen Reactions Penicillins Rash, Swelling Amoxicillin Rash Cefazolin Vomiting Cephalexin Hives, Itching Ciprofloxacin Vomiting Lexapro [Escitalopr* Rash Sulfa (Sulfonamide * Rash, Hives, Shortness of Breath Current Medications Current Outpatient Medications on File Prior to Visit Medication Sig lisinopril (ZESTRIL) 10 mg tablet Take 1 tablet by mouth once daily. hydroCHLOROthiazide 12.5 mg capsule Take 1 capsule by mouth once daily. sertraline 200 mg capsule Take 1 capsule (200 mg) by mouth once daily. Magnesium 200 mg tab Take 1 tablet by mouth twice daily. riboflavin, vitamin B2, 400 mg tab Take 1 tablet by mouth once daily. Zbsms-8-DAO-EPA-Fish Oil (FISH OIL) 1,000 mg (120 mg-180 mg) cap Take 1 capsule by mouth twice daily. clindamycin (CLEOCIN) 300 mg capsule Take 1 capsule by mouth four times daily. Amphetamine-Dextroamphetamine (ADDERALL) 30 mg tablet Take 30 mg by mouth twice daily. dextroamphetamine-amphetamine (ADDERALL) 20 mg tablet Take 20 mg by mouth once daily. cloNIDine HCl (CATAPRES) 0.2 mg tablet Take 0.2 mg by mouth three times daily. LORazepam (ATIVAN) 1 mg tablet Take 1 mg by mouth twice daily. Norgestimate-Ethinyl Estradiol 0.18/0.215/0.25 mg-35 mcg (28) cetirizine HCl (ZYRTEC ORAL) Take by mouth. No current facility-administered medications on file prior to visit. Social History Social History Tobacco Use Smoking status: Every Day Packs/day: 0.50 Years: 30.00 Additional pack years: 0.00 Total pack years: 15.00 Types: Cigarettes Smokeless tobacco: Never Vaping Use Vaping Use: Never used Substance Use Topics Alcohol use: Not Currently Drug use: Never Review of Symptoms REVIEW OF SYSTEMS SEE HPI EXAM: BP 186/100 Pulse 110 Resp 16 Wt 85.3 kg (188 lb) LMP 10/03/2018 BMI 33.30 kg/m? General Appearance: Well appearing, alert, in no acute distress, well-hydrated, well nourished.. Lungs: Lungs clear to auscultation. No wheezing, rhonchi, rales.. Heart: RRR without murmur, gallop, or rubs. No ectopy. Health Maintenance List Pneumococcal Vaccine(1 - PCV) Never done BP Controlled (<130/80) Never done Colorectal Cancer Screening Never done Influenza Vaccine(1) due on 05/30/2023 Covid-19 Vaccine(3 - 2022-24 season) due on 05/30/2023 Pap Testing due on 03/10/2024 HPV Testing due on 03/10/2024 Mammogram Screening due on 03/10/2024 Annual PCP Team Chronic Disease Visit due on 06/09/2024 Diabetes Screening due on 06/09/2026 Lipid Screening due on 03/10/2028 DTaP,Tdap,Td Vaccine(2 - Td or Tdap) due on 03/10/2033 Hepatitis C Screening Completed HIV Screening Completed Hepatitis B Vaccine Discontinued Depression Assessment Discontinued ASSESSMENT/PLAN: 1. Hypertension, essential - ICD9: 401.9, ICD10: I10 - Uncontrolled - Continue HCTZ - Start losartan - Increase lisinopril to 20mg daily - Recommend home blood pressure monitoring, to bring results to next visit - Encouraged sodium restriction, DASH or Mediterranean diet - Recommend regular aerobic exercise - Discussed need for and benefit of weight loss. BMI 33.30 kg/(m2) - LOSARTAN 25 MG TABLET - LISINOPRIL 20 MG TABLET Sanam Davis APRN.ORDER ENTRY REPRESENTATIVE [facility] 07-22-2023 Miscellaneous Notes Patient has been identified by name and date of : Yes, Provider Sanam Davis Date Time Patient phones for refill(s): Requested Prescriptions Pending Prescriptions Disp Refills lisinopril (ZESTRIL) 10 mg tablet 30 tablet 0 Sig: Take 1 tablet by mouth once daily. hydroCHLOROthiazide 12.5 mg capsule 30 capsule 0 Sig: Take 1 capsule by mouth once daily. Date of last office visit in primary care: 06/09/2023 Date of next office visit in primary care: 07/31/2023 Last 2 Encounter Wt Readings: Date: Wt: 07/15/2023 88.4 kg (194 lb 12.8 oz) 06/11/2023 88.5 kg (195 lb) Previous labs/tests for medication: Not applicable Please advise. Thank you. Elva Treadwell. documented in this encounter [facility] 07-15-2023 Note HNO ID: [id number] Author: Kanika Contreras PA-C Service: ? Author Type: Physician Diesel Electrician Type: Progress Notes Filed: 07/15/2023 3:14 PM Note Text: This note was created using Kenshooriter. Loida Cordova is a 48 year old female. HPI Presents with a chief complaint of sore throat. Her son tested positive for strep so she would like tested. She had a little bit of a cough and postnasal drip but attributed that to her seasonal allergies. No fever. No vomiting or diarrhea. No other complaints Review of Systems HENT: Positive for postnasal drip and sore throat. Negative for ear pain, sinus pressure and sinus pain. Respiratory: Positive for cough. Cardiovascular: Negative. Gastrointestinal: Negative. Genitourinary: Negative. All other systems reviewed and are negative. PAST MEDICAL HISTORY Diagnosis Date Anaphylaxis Anxiety and depression Environmental allergies Migraines Renal calculi Current Outpatient Medications Medication Sig Dispense Refill lisinopril (ZESTRIL) 10 mg tablet Take 1 tablet by mouth once daily. 30 tablet 0 sertraline 200 mg capsule Take 1 capsule (200 mg) by mouth once daily. Magnesium 200 mg tab Take 1 tablet by mouth twice daily. 60 tablet 0 riboflavin, vitamin B2, 400 mg tab Take 1 tablet by mouth once daily. 30 tablet 0 Vruoi-5-JRC-EPA-Fish Oil (FISH OIL) 1,000 mg (120 mg-180 mg) cap Take 1 capsule by mouth twice daily. 60 capsule 0 hydroCHLOROthiazide 12.5 mg capsule Take 1 capsule by mouth once daily. 30 capsule 0 clindamycin (CLEOCIN) 300 mg capsule Take 1 capsule by mouth four times daily. 40 capsule 0 Amphetamine-Dextroamphetamine (ADDERALL) 30 mg tablet Take 30 mg by mouth twice daily. dextroamphetamine-amphetamine (ADDERALL) 20 mg tablet Take 20 mg by mouth once daily. cloNIDine HCl (CATAPRES) 0.2 mg tablet Take 0.2 mg by mouth three times daily. LORazepam (ATIVAN) 1 mg tablet Take 1 mg by mouth twice daily. Norgestimate-Ethinyl Estradiol 0.18/0.215/0.25 mg-35 mcg (28) cetirizine HCl (ZYRTEC ORAL) Take by mouth. No current facility-administered medications for this visit. PAST SURGICAL HISTORY Procedure Laterality Date DELIVERY ONLY , low transverse PAST SURGICAL HISTORY OF cold knife conization FAMILY HISTORY Problem Relation Age of Onset Kidney failure Mother Diabetes Mother Hypertension Mother Neuropathy Mother Cervical Cancer Mother Colon Cancer Mother Rheumatologic disease Mother other (ddd) Mother Brain Cancer Father Diabetes Father Hypertension Father Depression Sister ADD/ADHD Sister Depression Brother Social History Tobacco Use Smoking status: Every Day Packs/day: 0.50 Years: 30.00 Additional pack years: 0.00 Total pack years: 15.00 Types: Cigarettes Smokeless tobacco: Never Vaping Use Vaping Use: Never used Substance Use Topics Alcohol use: Not Currently Drug use: Never Objective BP 188/106 Pulse 80 Temp 36.6 ?C (97.9 ?F) (Tympanic) Resp 18 Wt 88.4 kg (194 lb 12.8 oz) LMP 10/03/2018 SpO2 98% BMI 34.51 kg/m? Physical Exam Vitals reviewed. Constitutional: Appearance: Normal appearance. HENT: Head: Normocephalic and atraumatic. Right Ear: Tympanic membrane, ear canal and external ear normal. Left Ear: Tympanic membrane, ear canal and external ear normal. Nose: Nose normal. Mouth/Throat: Mouth: Mucous membranes are moist. Pharynx: Posterior oropharyngeal erythema present. No oropharyngeal exudate. Cardiovascular: Rate and Rhythm: Normal rate and regular rhythm. Heart sounds: Normal heart sounds. Pulmonary: Effort: Pulmonary effort is normal. Breath sounds: Normal breath sounds. Musculoskeletal: Cervical back: Neck supple. Skin: General: Skin is warm and dry. Findings: No rash. Neurological: Mental Status: She is alert. Assessment and Plan ASSESSMENT/PLAN: 1. Sore throat - ICD9: 462, ICD10: J02.9 - suspect viral - Group A strep molecular testing negative - Discussed supportive care treatment with fluids, rest and analgesia. - The patient should follow up in 3-5 days if symptoms persist or worsen -Patient blood pressure elevated today. Has been elevated last several visits and is supposed to follow-up with PCP regarding this tomorrow. Asymptomatic today. - STREP A MOLECULAR (POC) Kanika Contreras PA-C [facility] 07-15-2023 History of Present illness Narrative This note was created using Kenshooriter. Loida Cordova is a 48 year old female. HPI Presents with a chief complaint of sore throat. Her son tested positive for strep so she would like tested. She had a little bit of a cough and postnasal drip but attributed that to her seasonal allergies. No fever. No vomiting or diarrhea. No other complaints Review of Systems HENT: Positive for postnasal drip and sore throat. Negative for ear pain, sinus pressure and sinus pain. Respiratory: Positive for cough. Cardiovascular: Negative. Gastrointestinal: Negative. Genitourinary: Negative. All other systems reviewed and are negative. PAST MEDICAL HISTORY Diagnosis Date Anaphylaxis Anxiety and depression Environmental allergies Migraines Renal calculi Current Outpatient Medications Medication Sig Dispense Refill lisinopril (ZESTRIL) 10 mg tablet Take 1 tablet by mouth once daily. 30 tablet 0 sertraline 200 mg capsule Take 1 capsule (200 mg) by mouth once daily. Magnesium 200 mg tab Take 1 tablet by mouth twice daily. 60 tablet 0 riboflavin, vitamin B2, 400 mg tab Take 1 tablet by mouth once daily. 30 tablet 0 Jzrbo-8-SZQ-EPA-Fish Oil (FISH OIL) 1,000 mg (120 mg-180 mg) cap Take 1 capsule by mouth twice daily. 60 capsule 0 hydroCHLOROthiazide 12.5 mg capsule Take 1 capsule by mouth once daily. 30 capsule 0 clindamycin (CLEOCIN) 300 mg capsule Take 1 capsule by mouth four times daily. 40 capsule 0 Amphetamine-Dextroamphetamine (ADDERALL) 30 mg tablet Take 30 mg by mouth twice daily. dextroamphetamine-amphetamine (ADDERALL) 20 mg tablet Take 20 mg by mouth once daily. cloNIDine HCl (CATAPRES) 0.2 mg tablet Take 0.2 mg by mouth three times daily. LORazepam (ATIVAN) 1 mg tablet Take 1 mg by mouth twice daily. Norgestimate-Ethinyl Estradiol 0.18/0.215/0.25 mg-35 mcg (28) cetirizine HCl (ZYRTEC ORAL) Take by mouth. No current facility-administered medications for this visit. PAST SURGICAL HISTORY Procedure Laterality Date DELIVERY ONLY , low transverse PAST SURGICAL HISTORY OF cold knife conization FAMILY HISTORY Problem Relation Age of Onset Kidney failure Mother Diabetes Mother Hypertension Mother Neuropathy Mother Cervical Cancer Mother Colon Cancer Mother Rheumatologic disease Mother other (ddd) Mother Brain Cancer Father Diabetes Father Hypertension Father Depression Sister ADD/ADHD Sister Depression Brother Social History Tobacco Use Smoking status: Every Day Packs/day: 0.50 Years: 30.00 Additional pack years: 0.00 Total pack years: 15.00 Types: Cigarettes Smokeless tobacco: Never Vaping Use Vaping Use: Never used Substance Use Topics Alcohol use: Not Currently Drug use: Never Objective BP 188/106 Pulse 80 Temp 36.6 C (97.9 F) (Tympanic) Resp 18 Wt 88.4 kg (194 lb 12.8 oz) LMP 10/03/2018 SpO2 98% BMI 34.51 kg/m Physical Exam Vitals reviewed. Constitutional: Appearance: Normal appearance. HENT: Head: Normocephalic and atraumatic. Right Ear: Tympanic membrane, ear canal and external ear normal. Left Ear: Tympanic membrane, ear canal and external ear normal. Nose: Nose normal. Mouth/Throat: Mouth: Mucous membranes are moist. Pharynx: Posterior oropharyngeal erythema present. No oropharyngeal exudate. Cardiovascular: Rate and Rhythm: Normal rate and regular rhythm. Heart sounds: Normal heart sounds. Pulmonary: Effort: Pulmonary effort is normal. Breath sounds: Normal breath sounds. Musculoskeletal: Cervical back: Neck supple. Skin: General: Skin is warm and dry. Findings: No rash. Neurological: Mental Status: She is alert. Assessment and Plan ASSESSMENT/PLAN: 1. Sore throat - ICD9: 462, ICD10: J02.9 - suspect viral - Group A strep molecular testing negative - Discussed supportive care treatment with fluids, rest and analgesia. - The patient should follow up in 3-5 days if symptoms persist or worsen -Patient blood pressure elevated today. Has been elevated last several visits and is supposed to follow-up with PCP regarding this tomorrow. Asymptomatic today. - STREP A MOLECULAR (POC) Kanika Contreras PA-C documented in this encounter [facility] 06-16-2023 Note HNO ID: [id number] Author: Grady Alarcon Service: ? Author Type: ? Type: Progress Notes Filed: 06/16/2023 11:57 AM Note Text: 2nd failed attempt to schedule colonoscopy, left VM JN 06/16 [facility] 06-12-2023 Miscellaneous Notes Sw called and left patient message that she will send patient My Chart message to connect via My Chart. Loni called patient and she notes that she is not feeling well today. Was planning on taking herself and son to urgent care as he has not been feeling well either. Patient notes that she has been feeling nauseous for a few weeks. Patient asks that Sw call her back tomorrow 06/12 to discuss social service needs. Sw will try patient follow up call tomorrow. Sw left message for patient calling back to follow up regarding social service needs. Sw left direct number for patient to return social work call. Sw called patient to discuss social service needs. Patient notes that she has multiple appts today and asks Sw call her back tomorrow at this same time. Sw will return patient call tomorrow morning. documented in this encounter [facility] 06-11-2023 Note HNO ID: [id number] Author: Beau Cortes APRN.ORDER ENTRY REPRESENTATIVE Service: ? Author Type: Nurse Practitioner Type: Progress Notes Filed: 06/11/2023 1:22 PM Note Text: Subjective HPI Nontoxic-appearing female presents urgent care chief complaint nausea vomiting and loose stools. Duration of symptoms 1 day. Associated symptoms listed above. States symptoms started this morning. Son has similar signs symptoms. His started last night. Has not used any OTC medication. Denies any significant pain currently. Denies any high fevers productive cough chest pain shortness of breath current nausea or abdominal pain rashes. Past medical history prescription medication use allergies reviewed. .Patient presents with: Headache: abdominal and leg cramping, body pains, fatigue, nausea x 1 day PAST MEDICAL HISTORY Diagnosis Date Anaphylaxis Anxiety and depression Environmental allergies Migraines Renal calculi PAST SURGICAL HISTORY Procedure Laterality Date DELIVERY ONLY , low transverse PAST SURGICAL HISTORY OF cold knife conization ALLERGIES Penicillins, Amoxicillin, Cefazolin, Cephalexin, Ciprofloxacin, Lexapro [Escitalopram], and Sulfa (Sulfonamide Antibiotics) MEDICATIONS lisinopril (ZESTRIL) 10 mg tablet Take 1 tablet by mouth once daily. sertraline 200 mg capsule Take 1 capsule (200 mg) by mouth once daily. Magnesium 200 mg tab Take 1 tablet by mouth twice daily. riboflavin, vitamin B2, 400 mg tab Take 1 tablet by mouth once daily. Jfrfk-2-TKG-EPA-Fish Oil (FISH OIL) 1,000 mg (120 mg-180 mg) cap Take 1 capsule by mouth twice daily. hydroCHLOROthiazide 12.5 mg capsule Take 1 capsule by mouth once daily. clindamycin (CLEOCIN) 300 mg capsule Take 1 capsule by mouth four times daily. Amphetamine-Dextroamphetamine (ADDERALL) 30 mg tablet Take 30 mg by mouth twice daily. dextroamphetamine-amphetamine (ADDERALL) 20 mg tablet Take 20 mg by mouth once daily. cloNIDine HCl (CATAPRES) 0.2 mg tablet Take 0.2 mg by mouth three times daily. LORazepam (ATIVAN) 1 mg tablet Take 1 mg by mouth twice daily. Norgestimate-Ethinyl Estradiol 0.18/0.215/0.25 mg-35 mcg (28) cetirizine HCl (ZYRTEC ORAL) Take by mouth. FAMILY HISTORY Problem Relation Age of Onset Kidney failure Mother Diabetes Mother Hypertension Mother Neuropathy Mother Cervical Cancer Mother Colon Cancer Mother Rheumatologic disease Mother other (ddd) Mother Brain Cancer Father Diabetes Father Hypertension Father Depression Sister ADD/ADHD Sister Depression Brother Social History Tobacco Use Smoking status: Every Day Packs/day: 0.50 Years: 30.00 Additional pack years: 0.00 Total pack years: 15.00 Types: Cigarettes Smokeless tobacco: Never Vaping Use Vaping Use: Never used Substance Use Topics Alcohol use: Not Currently Drug use: Never BP (!) 212/108 Pulse 88 Temp 36.6 ?C (97.9 ?F) Resp 16 Wt 88.5 kg (195 lb) LMP 10/03/2018 SpO2 97% BMI 34.54 kg/m? Review of Systems Constitutional: Negative for chills, fever and malaise/fatigue. HENT: Negative for congestion, ear discharge, ear pain, sinus pain and sore throat. Eyes: Negative for blurred vision, pain, discharge and redness. Respiratory: Negative for cough, hemoptysis, sputum production, shortness of breath, wheezing and stridor. Cardiovascular: Negative for chest pain. Gastrointestinal: Positive for abdominal pain, diarrhea and nausea. Negative for vomiting. Musculoskeletal: Negative for myalgias. Skin: Negative for itching and rash. Neurological: Negative for dizziness and headaches. Objective Physical Exam Constitutional: General: She is not in acute distress. Appearance: She is not diaphoretic. HENT: Head: Normocephalic. Jaw: No trismus, tenderness, swelling or pain on movement. Mouth/Throat: Mouth: Mucous membranes are moist. Pharynx: Oropharynx is clear. Uvula midline. No pharyngeal swelling, oropharyngeal exudate, posterior oropharyngeal erythema or uvula swelling. Eyes: Conjunctiva/sclera: Conjunctivae normal. Pupils: Pupils are equal, round, and reactive to light. Cardiovascular: Rate and Rhythm: Normal rate and regular rhythm. Heart sounds: Normal heart sounds. Pulmonary: Effort: Pulmonary effort is normal. No tachypnea, accessory muscle usage or respiratory distress. Breath sounds: Normal breath sounds. No stridor. No wheezing, rhonchi or rales. Abdominal: General: There is no distension. Palpations: Abdomen is soft. Tenderness: There is no abdominal tenderness. There is no guarding or rebound. Musculoskeletal: Cervical back: Normal range of motion and neck supple. No edema, erythema, rigidity or tenderness. No pain with movement. Normal range of motion. Lymphadenopathy: Cervical: No cervical adenopathy. Skin: General: Skin is warm and dry. Neurological: Mental Status: She is alert and oriented to person, place, and time. ASSESS (more content not included)... [facility] 06-11-2023 History of Present illness Narrative Subjective HPI Nontoxic-appearing female presents urgent care chief complaint nausea vomiting and loose stools. Duration of symptoms 1 day. Associated symptoms listed above. States symptoms started this morning. Son has similar signs symptoms. His started last night. Has not used any OTC medication. Denies any significant pain currently. Denies any high fevers productive cough chest pain shortness of breath current nausea or abdominal pain rashes. Past medical history prescription medication use allergies reviewed. .Patient presents with: Headache: abdominal and leg cramping, body pains, fatigue, nausea x 1 day PAST MEDICAL HISTORY Diagnosis Date Anaphylaxis Anxiety and depression Environmental allergies Migraines Renal calculi PAST SURGICAL HISTORY Procedure Laterality Date DELIVERY ONLY , low transverse PAST SURGICAL HISTORY OF cold knife conization ALLERGIES Penicillins, Amoxicillin, Cefazolin, Cephalexin, Ciprofloxacin, Lexapro [Escitalopram], and Sulfa (Sulfonamide Antibiotics) MEDICATIONS lisinopril (ZESTRIL) 10 mg tablet Take 1 tablet by mouth once daily. sertraline 200 mg capsule Take 1 capsule (200 mg) by mouth once daily. Magnesium 200 mg tab Take 1 tablet by mouth twice daily. riboflavin, vitamin B2, 400 mg tab Take 1 tablet by mouth once daily. Rrfhj-0-BKS-EPA-Fish Oil (FISH OIL) 1,000 mg (120 mg-180 mg) cap Take 1 capsule by mouth twice daily. hydroCHLOROthiazide 12.5 mg capsule Take 1 capsule by mouth once daily. clindamycin (CLEOCIN) 300 mg capsule Take 1 capsule by mouth four times daily. Amphetamine-Dextroamphetamine (ADDERALL) 30 mg tablet Take 30 mg by mouth twice daily. dextroamphetamine-amphetamine (ADDERALL) 20 mg tablet Take 20 mg by mouth once daily. cloNIDine HCl (CATAPRES) 0.2 mg tablet Take 0.2 mg by mouth three times daily. LORazepam (ATIVAN) 1 mg tablet Take 1 mg by mouth twice daily. Norgestimate-Ethinyl Estradiol 0.18/0.215/0.25 mg-35 mcg (28) cetirizine HCl (ZYRTEC ORAL) Take by mouth. FAMILY HISTORY Problem Relation Age of Onset Kidney failure Mother Diabetes Mother Hypertension Mother Neuropathy Mother Cervical Cancer Mother Colon Cancer Mother Rheumatologic disease Mother other (ddd) Mother Brain Cancer Father Diabetes Father Hypertension Father Depression Sister ADD/ADHD Sister Depression Brother Social History Tobacco Use Smoking status: Every Day Packs/day: 0.50 Years: 30.00 Additional pack years: 0.00 Total pack years: 15.00 Types: Cigarettes Smokeless tobacco: Never Vaping Use Vaping Use: Never used Substance Use Topics Alcohol use: Not Currently Drug use: Never BP (!) 212/108 Pulse 88 Temp 36.6 C (97.9 F) Resp 16 Wt 88.5 kg (195 lb) LMP 10/03/2018 SpO2 97% BMI 34.54 kg/m Review of Systems Constitutional: Negative for chills, fever and malaise/fatigue. HENT: Negative for congestion, ear discharge, ear pain, sinus pain and sore throat. Eyes: Negative for blurred vision, pain, discharge and redness. Respiratory: Negative for cough, hemoptysis, sputum production, shortness of breath, wheezing and stridor. Cardiovascular: Negative for chest pain. Gastrointestinal: Positive for abdominal pain, diarrhea and nausea. Negative for vomiting. Musculoskeletal: Negative for myalgias. Skin: Negative for itching and rash. Neurological: Negative for dizziness and headaches. Objective Physical Exam Constitutional: General: She is not in acute distress. Appearance: She is not diaphoretic. HENT: Head: Normocephalic. Jaw: No trismus, tenderness, swelling or pain on movement. Mouth/Throat: Mouth: Mucous membranes are moist. Pharynx: Oropharynx is clear. Uvula midline. No pharyngeal swelling, oropharyngeal exudate, posterior oropharyngeal erythema or uvula swelling. Eyes: Conjunctiva/sclera: Conjunctivae normal. Pupils: Pupils are equal, round, and reactive to light. Cardiovascular: Rate and Rhythm: Normal rate and regular rhythm. Heart sounds: Normal heart sounds. Pulmonary: Effort: Pulmonary effort is normal. No tachypnea, accessory muscle usage or respiratory distress. Breath sounds: Normal breath sounds. No stridor. No wheezing, rhonchi or rales. Abdominal: General: There is no distension. Palpations: Abdomen is soft. Tenderness: There is no abdominal tenderness. There is no guarding or rebound. Musculoskeletal: Cervical back: Normal range of motion and neck supple. No edema, erythema, rigidity or tenderness. No pain with movement. Normal range of motion. Lymphadenopathy: Cervical: No cervical adenopathy. Skin: General: Skin is warm and dry. Neurological: Mental Status: She is alert and oriented to person, place, and time. ASSESSMENT/PLAN: 1. Viral gastroenteritis - ICD9: 008.8, ICD10: A08.4 Diagnosed with viral gastroenteritis. No evidence of acute abdomen. Nontoxic-appearing. Was noted patient did have elevated BP. Is currently working with this problem with PCP. Follow-up with PCP tomorrow for repeat evaluation. Red flags prompt ER evaluation discussed. Be seen urgent care or ED for any new worsening or symptoms lasting longer dissipated. Patient verbalized understanding and agrees with plan of care. Beau Cortes APRN.ORDER ENTRY REPRESENTATIVE documented in this encounter [facility] 06-10-2023 Miscellaneous Notes Phoned patient and updated her on results. Patient relieved and requested to let provider know to have a great vacation. Please let patient know her labs are stable. documented in this encounter [facility] 06-09-2023 Note HNO ID: [id number] Author: Sanam Davis APRN.SHARON Service: ? Author Type: Nurse Practitioner Type: Progress Notes Filed: 06/09/2023 11:47 AM Note Text: Chief Complaint Patient presents with: Follow Up: Blood pressure HPI Asia Cordova is a 48 year old female who presents here today for Above Complaints.. Patient presents for BP follow up. Patient was seen last and was noted to have elevated BP. Patient was on amlodipine and clonidine at that time. Amlodipine was stopped and patient was initiated on lisinopril and HCTZ. Patient reports increased fatigue and leg cramps. Past medical history, appointments, medications, allergies reviewed. Previous Medical History PAST MEDICAL HISTORY Diagnosis Date Anaphylaxis Anxiety and depression Environmental allergies Migraines Renal calculi Previous Surgical History PAST SURGICAL HISTORY Procedure Laterality Date DELIVERY ONLY , low transverse PAST SURGICAL HISTORY OF cold knife conization Family History FAMILY HISTORY Problem Relation Age of Onset Kidney failure Mother Diabetes Mother Hypertension Mother Neuropathy Mother Cervical Cancer Mother Colon Cancer Mother Rheumatologic disease Mother other (ddd) Mother Brain Cancer Father Diabetes Father Hypertension Father Depression Sister ADD/ADHD Sister Depression Brother Patient Allergies ALLERGIES Allergen Reactions Penicillins Rash, Swelling Amoxicillin Rash Cefazolin Vomiting Cephalexin Hives, Itching Ciprofloxacin Vomiting Lexapro [Escitalopr* Rash Sulfa (Sulfonamide * Rash, Hives, Shortness of Breath Current Medications Current Outpatient Medications on File Prior to Visit Medication Sig lisinopril (ZESTRIL) 5 mg tablet Take 1 tablet by mouth once daily. Magnesium 200 mg tab Take 1 tablet by mouth twice daily. riboflavin, vitamin B2, 400 mg tab Take 1 tablet by mouth once daily. Xydod-9-JSR-EPA-Fish Oil (FISH OIL) 1,000 mg (120 mg-180 mg) cap Take 1 capsule by mouth twice daily. hydroCHLOROthiazide 12.5 mg capsule Take 1 capsule by mouth once daily. clindamycin (CLEOCIN) 300 mg capsule Take 1 capsule by mouth four times daily. Amphetamine-Dextroamphetamine (ADDERALL) 30 mg tablet Take 30 mg by mouth twice daily. dextroamphetamine-amphetamine (ADDERALL) 20 mg tablet Take 20 mg by mouth once daily. cloNIDine HCl (CATAPRES) 0.2 mg tablet Take 0.2 mg by mouth three times daily. LORazepam (ATIVAN) 1 mg tablet Take 1 mg by mouth twice daily. Norgestimate-Ethinyl Estradiol 0.18/0.215/0.25 mg-35 mcg (28) cetirizine HCl (ZYRTEC ORAL) Take by mouth. No current facility-administered medications on file prior to visit. Social History Social History Tobacco Use Smoking status: Every Day Packs/day: 0.50 Years: 30.00 Additional pack years: 0.00 Total pack years: 15.00 Types: Cigarettes Smokeless tobacco: Never Vaping Use Vaping Use: Never used Substance Use Topics Alcohol use: Not Currently Drug use: Never Review of Symptoms REVIEW OF SYSTEMS SEE HPI EXAM: BP 180/90 Pulse 85 Resp 16 LMP 10/03/2018 General Appearance: Well appearing, alert, in no acute distress, well-hydrated, well nourished.. Lungs: Lungs clear to auscultation. No wheezing, rhonchi, rales.. Heart: RRR without murmur, gallop, or rubs. No ectopy. Peripheral Pulses: Normal. Health Maintenance List PNEUMOCOCCAL(1 - PCV) Never done BP CONTROLLED (<130/80) Never done COLORECTAL CANCER SCREENING Never done COVID-19 VACCINE(3 - Moderna series) due on 04/22/2021 INFLUENZA(1) due on 05/30/2023 PAP TESTING due on 03/10/2024 HPV TESTING due on 03/10/2024 MAMMOGRAM due on 03/10/2024 ANNUAL PCP TEAM CHRONIC DISEASE VISIT due on 06/05/2024 DIABETES SCREEN due on 03/10/2026 LIPID SCREEN due on 03/10/2028 DTAP,TDAP,TD(2 - Td or Tdap) due on 03/10/2033 HEPATITIS C SCREENING Completed HIV SCREENING Completed HEPATITIS B Discontinued DEPRESSION ASSESSMENT Discontinued ASSESSMENT/PLAN: 1. Primary hypertension - ICD9: 401.9, ICD10: I10 (primary diagnosis) - Uncontrolled - Increase lisinopril - Recommend home blood pressure monitoring, to bring results to next visit - Encouraged sodium restriction, DASH or Mediterranean diet - Recommend regular aerobic exercise - Discussed need for and benefit of weight loss. BMI 34.01 kg/(m2) - LISINOPRIL 10 MG TABLET - COMP METABOLIC PANEL 2. Anxiety with depression - ICD9: 300.4, ICD10: F41.8 - SERTRALINE 200 MG CAPSULE Sanam Davis APRN.[facility] 06-09-2023 History of Present illness Narrative Chief Complaint Patient presents with: Follow Up: Blood pressure HPI Asia Cordova is a 48 year old female who presents here today for Above Complaints.. Patient presents for BP follow up. Patient was seen last and was noted to have elevated BP. Patient was on amlodipine and clonidine at that time. Amlodipine was stopped and patient was initiated on lisinopril and HCTZ. Patient reports increased fatigue and leg cramps. Past medical history, appointments, medications, allergies reviewed. Previous Medical History PAST MEDICAL HISTORY Diagnosis Date Anaphylaxis Anxiety and depression Environmental allergies Migraines Renal calculi Previous Surgical History PAST SURGICAL HISTORY Procedure Laterality Date DELIVERY ONLY , low transverse PAST SURGICAL HISTORY OF cold knife conization Family History FAMILY HISTORY Problem Relation Age of Onset Kidney failure Mother Diabetes Mother Hypertension Mother Neuropathy Mother Cervical Cancer Mother Colon Cancer Mother Rheumatologic disease Mother other (ddd) Mother Brain Cancer Father Diabetes Father Hypertension Father Depression Sister ADD/ADHD Sister Depression Brother Patient Allergies ALLERGIES Allergen Reactions Penicillins Rash, Swelling Amoxicillin Rash Cefazolin Vomiting Cephalexin Hives, Itching Ciprofloxacin Vomiting Lexapro [Escitalopr* Rash Sulfa (Sulfonamide * Rash, Hives, Shortness of Breath Current Medications Current Outpatient Medications on File Prior to Visit Medication Sig lisinopril (ZESTRIL) 5 mg tablet Take 1 tablet by mouth once daily. Magnesium 200 mg tab Take 1 tablet by mouth twice daily. riboflavin, vitamin B2, 400 mg tab Take 1 tablet by mouth once daily. Zipip-7-NVE-EPA-Fish Oil (FISH OIL) 1,000 mg (120 mg-180 mg) cap Take 1 capsule by mouth twice daily. hydroCHLOROthiazide 12.5 mg capsule Take 1 capsule by mouth once daily. clindamycin (CLEOCIN) 300 mg capsule Take 1 capsule by mouth four times daily. Amphetamine-Dextroamphetamine (ADDERALL) 30 mg tablet Take 30 mg by mouth twice daily. dextroamphetamine-amphetamine (ADDERALL) 20 mg tablet Take 20 mg by mouth once daily. cloNIDine HCl (CATAPRES) 0.2 mg tablet Take 0.2 mg by mouth three times daily. LORazepam (ATIVAN) 1 mg tablet Take 1 mg by mouth twice daily. Norgestimate-Ethinyl Estradiol 0.18/0.215/0.25 mg-35 mcg (28) cetirizine HCl (ZYRTEC ORAL) Take by mouth. No current facility-administered medications on file prior to visit. Social History Social History Tobacco Use Smoking status: Every Day Packs/day: 0.50 Years: 30.00 Additional pack years: 0.00 Total pack years: 15.00 Types: Cigarettes Smokeless tobacco: Never Vaping Use Vaping Use: Never used Substance Use Topics Alcohol use: Not Currently Drug use: Never Review of Symptoms REVIEW OF SYSTEMS SEE HPI EXAM: BP 180/90 Pulse 85 Resp 16 LMP 10/03/2018 General Appearance: Well appearing, alert, in no acute distress, well-hydrated, well nourished.. Lungs: Lungs clear to auscultation. No wheezing, rhonchi, rales.. Heart: RRR without murmur, gallop, or rubs. No ectopy. Peripheral Pulses: Normal. Health Maintenance List PNEUMOCOCCAL(1 - PCV) Never done BP CONTROLLED (<130/80) Never done COLORECTAL CANCER SCREENING Never done COVID-19 VACCINE(3 - Moderna series) due on 04/22/2021 INFLUENZA(1) due on 05/30/2023 PAP TESTING due on 03/10/2024 HPV TESTING due on 03/10/2024 MAMMOGRAM due on 03/10/2024 ANNUAL PCP TEAM CHRONIC DISEASE VISIT due on 06/05/2024 DIABETES SCREEN due on 03/10/2026 LIPID SCREEN due on 03/10/2028 DTAP,TDAP,TD(2 - Td or Tdap) due on 03/10/2033 HEPATITIS C SCREENING Completed HIV SCREENING Completed HEPATITIS B Discontinued DEPRESSION ASSESSMENT Discontinued ASSESSMENT/PLAN: 1. Primary hypertension - ICD9: 401.9, ICD10: I10 (primary diagnosis) - Uncontrolled - Increase lisinopril - Recommend home blood pressure monitoring, to bring results to next visit - Encouraged sodium restriction, DASH or Mediterranean diet - Recommend regular aerobic exercise - Discussed need for and benefit of weight loss. BMI 34.01 kg/(m^2) - LISINOPRIL 10 MG TABLET - COMP METABOLIC PANEL 2. Anxiety with depression - ICD9: 300.4, ICD10: F41.8 - SERTRALINE 200 MG CAPSULE Sanam Davis APRN.ORDER ENTRY REPRESENTATIVE documented in this encounter [facility] 06-05-2023 Note HNO ID: [id number] Author: Sanam Davis APRN.ORDER ENTRY REPRESENTATIVE Service: ? Author Type: Nurse Practitioner Type: Progress Notes Filed: 06/05/2023 11:30 AM Note Text: Chief Complaint Patient presents with: Follow Up Headache HPI Asia Cordova is a 48 year old female who presents here today for Above Complaints.. Patient presents for BP follow up. Patient currently on amlodipine and clonidine. Patient reports she is currently having worse migraines as well and swelling in her feet. Past medical history, appointments, medications, allergies reviewed. Previous Medical History PAST MEDICAL HISTORY Diagnosis Date Anaphylaxis Anxiety and depression Environmental allergies Migraines Renal calculi Previous Surgical History PAST SURGICAL HISTORY Procedure Laterality Date DELIVERY ONLY , low transverse PAST SURGICAL HISTORY OF cold knife conization Family History FAMILY HISTORY Problem Relation Age of Onset Kidney failure Mother Diabetes Mother Hypertension Mother Neuropathy Mother Cervical Cancer Mother Colon Cancer Mother Rheumatologic disease Mother other (ddd) Mother Brain Cancer Father Diabetes Father Hypertension Father Depression Sister ADD/ADHD Sister Depression Brother Patient Allergies ALLERGIES Allergen Reactions Penicillins Rash, Swelling Amoxicillin Rash Cefazolin Vomiting Cephalexin Hives, Itching Ciprofloxacin Vomiting Lexapro [Escitalopr* Rash Sulfa (Sulfonamide * Rash, Hives, Shortness of Breath Current Medications Current Outpatient Medications on File Prior to Visit Medication Sig clindamycin (CLEOCIN) 300 mg capsule Take 1 capsule by mouth four times daily. amLODIPine (NORVASC) 5 mg tablet Take 1 tablet by mouth once daily. Amphetamine-Dextroamphetamine (ADDERALL) 30 mg tablet Take 30 mg by mouth twice daily. dextroamphetamine-amphetamine (ADDERALL) 20 mg tablet Take 20 mg by mouth once daily. cloNIDine HCl (CATAPRES) 0.2 mg tablet Take 0.2 mg by mouth three times daily. LORazepam (ATIVAN) 1 mg tablet Take 1 mg by mouth twice daily. oxybutynin (DITROPAN) 2.5 mg tablet Take 1 tablet (2.5 mg) by mouth three times daily. Norgestimate-Ethinyl Estradiol 0.18/0.215/0.25 mg-35 mcg (28) cetirizine HCl (ZYRTEC ORAL) Take by mouth. sertraline (ZOLOFT) 100 mg tablet Take 100 mg by mouth once daily. No current facility-administered medications on file prior to visit. Social History Social History Tobacco Use Smoking status: Every Day Packs/day: 0.50 Years: 30.00 Additional pack years: 0.00 Total pack years: 15.00 Types: Cigarettes Smokeless tobacco: Never Vaping Use Vaping Use: Never used Substance Use Topics Alcohol use: Not Currently Drug use: Never Review of Symptoms REVIEW OF SYSTEMS SEE HPI EXAM: BP 190/110 Pulse 102 Resp 16 Wt 87.1 kg (192 lb) LMP 10/03/2018 BMI 34.01 kg/m? General Appearance: Well appearing, alert, in no acute distress, well-hydrated, well nourished.. Lungs: Lungs clear to auscultation. No wheezing, rhonchi, rales.. Heart: RRR without murmur, gallop, or rubs. No ectopy. Extremities: Edema: non-pitting edema to bilateral lower extremities. Health Maintenance List PNEUMOCOCCAL(1 - PCV) Never done COLORECTAL CANCER SCREENING Never done COVID-19 VACCINE(3 - Moderna series) due on 04/22/2021 INFLUENZA(1) due on 05/30/2023 PAP TESTING due on 03/10/2024 HPV TESTING due on 03/10/2024 MAMMOGRAM due on 03/10/2024 DIABETES SCREEN due on 03/10/2026 LIPID SCREEN due on 03/10/2028 DTAP,TDAP,TD(2 - Td or Tdap) due on 03/10/2033 HEPATITIS C SCREENING Completed HIV SCREENING Completed HEPATITIS B Discontinued DEPRESSION ASSESSMENT Discontinued ASSESSMENT/PLAN: 1. Hypertension, essential - ICD9: 401.9, ICD10: I10 (primary diagnosis) - Uncontrolled - Start lisinopril, Increase amlodipine - Recommend home blood pressure monitoring, to bring results to next visit - Encouraged sodium restriction, DASH or Mediterranean diet - Recommend regular aerobic exercise - Discussed need for and benefit of weight loss. BMI 34.01 kg/(m2) - Reviewed risks of hypertension and principles of treatment - HYDROCHLOROTHIAZIDE 12.5 MG TABLET - LISINOPRIL 5 MG TABLET 2. Migraine without aura and without status migrainosus, not intractable - ICD9: 346.10, ICD10: G43.009 - MAGNESIUM 200 MG TABLET - RIBOFLAVIN (VITAMIN B2) 400 MG TABLET - OMEGA 4-IDU-NWI-FISH OIL 1,000 MG (120 MG-180 MG) CAPSULE Follow up in 1 week for BP check. Sanam Davis APRN.[facility] 06-05-2023 History of Present illness Narrative Chief Complaint Patient presents with: Follow Up Headache HPI Asia Cordova is a 48 year old female who presents here today for Above Complaints.. Patient presents for BP follow up. Patient currently on amlodipine and clonidine. Patient reports she is currently having worse migraines as well and swelling in her feet. Past medical history, appointments, medications, allergies reviewed. Previous Medical History PAST MEDICAL HISTORY Diagnosis Date Anaphylaxis Anxiety and depression Environmental allergies Migraines Renal calculi Previous Surgical History PAST SURGICAL HISTORY Procedure Laterality Date DELIVERY ONLY , low transverse PAST SURGICAL HISTORY OF cold knife conization Family History FAMILY HISTORY Problem Relation Age of Onset Kidney failure Mother Diabetes Mother Hypertension Mother Neuropathy Mother Cervical Cancer Mother Colon Cancer Mother Rheumatologic disease Mother other (ddd) Mother Brain Cancer Father Diabetes Father Hypertension Father Depression Sister ADD/ADHD Sister Depression Brother Patient Allergies ALLERGIES Allergen Reactions Penicillins Rash, Swelling Amoxicillin Rash Cefazolin Vomiting Cephalexin Hives, Itching Ciprofloxacin Vomiting Lexapro [Escitalopr* Rash Sulfa (Sulfonamide * Rash, Hives, Shortness of Breath Current Medications Current Outpatient Medications on File Prior to Visit Medication Sig clindamycin (CLEOCIN) 300 mg capsule Take 1 capsule by mouth four times daily. amLODIPine (NORVASC) 5 mg tablet Take 1 tablet by mouth once daily. Amphetamine-Dextroamphetamine (ADDERALL) 30 mg tablet Take 30 mg by mouth twice daily. dextroamphetamine-amphetamine (ADDERALL) 20 mg tablet Take 20 mg by mouth once daily. cloNIDine HCl (CATAPRES) 0.2 mg tablet Take 0.2 mg by mouth three times daily. LORazepam (ATIVAN) 1 mg tablet Take 1 mg by mouth twice daily. oxybutynin (DITROPAN) 2.5 mg tablet Take 1 tablet (2.5 mg) by mouth three times daily. Norgestimate-Ethinyl Estradiol 0.18/0.215/0.25 mg-35 mcg (28) cetirizine HCl (ZYRTEC ORAL) Take by mouth. sertraline (ZOLOFT) 100 mg tablet Take 100 mg by mouth once daily. No current facility-administered medications on file prior to visit. Social History Social History Tobacco Use Smoking status: Every Day Packs/day: 0.50 Years: 30.00 Additional pack years: 0.00 Total pack years: 15.00 Types: Cigarettes Smokeless tobacco: Never Vaping Use Vaping Use: Never used Substance Use Topics Alcohol use: Not Currently Drug use: Never Review of Symptoms REVIEW OF SYSTEMS SEE HPI EXAM: BP 190/110 Pulse 102 Resp 16 Wt 87.1 kg (192 lb) LMP 10/03/2018 BMI 34.01 kg/m General Appearance: Well appearing, alert, in no acute distress, well-hydrated, well nourished.. Lungs: Lungs clear to auscultation. No wheezing, rhonchi, rales.. Heart: RRR without murmur, gallop, or rubs. No ectopy. Extremities: Edema: non-pitting edema to bilateral lower extremities. Health Maintenance List PNEUMOCOCCAL(1 - PCV) Never done COLORECTAL CANCER SCREENING Never done COVID-19 VACCINE(3 - Moderna series) due on 04/22/2021 INFLUENZA(1) due on 05/30/2023 PAP TESTING due on 03/10/2024 HPV TESTING due on 03/10/2024 MAMMOGRAM due on 03/10/2024 DIABETES SCREEN due on 03/10/2026 LIPID SCREEN due on 03/10/2028 DTAP,TDAP,TD(2 - Td or Tdap) due on 03/10/2033 HEPATITIS C SCREENING Completed HIV SCREENING Completed HEPATITIS B Discontinued DEPRESSION ASSESSMENT Discontinued ASSESSMENT/PLAN: 1. Hypertension, essential - ICD9: 401.9, ICD10: I10 (primary diagnosis) - Uncontrolled - Start lisinopril, Increase amlodipine - Recommend home blood pressure monitoring, to bring results to next visit - Encouraged sodium restriction, DASH or Mediterranean diet - Recommend regular aerobic exercise - Discussed need for and benefit of weight loss. BMI 34.01 kg/(m^2) - Reviewed risks of hypertension and principles of treatment - HYDROCHLOROTHIAZIDE 12.5 MG TABLET - LISINOPRIL 5 MG TABLET 2. Migraine without aura and without status migrainosus, not intractable - ICD9: 346.10, ICD10: G43.009 - MAGNESIUM 200 MG TABLET - RIBOFLAVIN (VITAMIN B2) 400 MG TABLET - OMEGA 3-HAI-KFX-FISH OIL 1,000 MG (120 MG-180 MG) CAPSULE Follow up in 1 week for BP check. Sanam Davis APRN.ORDER ENTRY REPRESENTATIVE documented in this encounter [facility] 05-26-2023 Note HNO ID: [id number] Author: Grady Alarcon Service: ? Author Type: ? Type: Progress Notes Filed: 05/26/2023 12:48 PM Note Text: 1st failed attempt to schedule colonoscopy, left VM 05/26 [facility] 05-13-2023 Note HNO ID: [id number] Author: Grady Alarcon Service: ? Author Type: ? Type: Progress Notes Filed: 05/13/2023 1:28 PM Note Text: Contact later this week, patient stated she wanted to get her work schedule under control before scheduling. 05/13 [facility] 05-09-2023 Note HNO ID: [id number] Author: Keila Jorge APRN.ORDER ENTRY REPRESENTATIVE Service: ? Author Type: Nurse Practitioner Type: Progress Notes Filed: 05/09/2023 7:48 PM Note Text: Subjective Dental Problem Pertinent negatives include no chest pain, chills, fever, headaches or rash. Asia Cordova is a 48 year old female who presents with a dental infection and pain. She has a broken tooth on left lower gum. She has had pain for the past 2 days. She rates pain 9/10. She has used heating pad and ibuprofen. She grinds her teeth and her dentist told her all her fillings are shattered . She wears a mouth guard. She has not had a fever. Blood pressure is noted to be high on rooming intake. Patient states she stopped taking Ditropan as it was causing her legs to swell. She is also out of amlodipine. She denies chest pain, visual changes, headache or dizziness. Review of Systems Constitutional: Negative for chills and fever. HENT: See HPI Respiratory: Negative. Cardiovascular: Negative for chest pain. Skin: Negative for itching and rash. Neurological: Negative for dizziness and headaches. BP (!) 214/125 Pulse 81 Temp 36.2 ?C (97.2 ?F) Resp 18 Wt 89.5 kg (197 lb 6.4 oz) LMP 10/03/2018 SpO2 100% BMI 34.97 kg/m? PAST MEDICAL HISTORY Diagnosis Date Anaphylaxis Anxiety and depression Environmental allergies Migraines Renal calculi PAST SURGICAL HISTORY Procedure Laterality Date DELIVERY ONLY , low transverse PAST SURGICAL HISTORY OF cold knife conization ALLERGIES Penicillins, Amoxicillin, Cefazolin, Cephalexin, Ciprofloxacin, Lexapro [Escitalopram], and Sulfa (Sulfonamide Antibiotics) MEDICATIONS clindamycin (CLEOCIN) 300 mg capsule Take 1 capsule by mouth four times daily. amLODIPine (NORVASC) 5 mg tablet Take 1 tablet by mouth once daily. Amphetamine-Dextroamphetamine (ADDERALL) 30 mg tablet Take 30 mg by mouth twice daily. dextroamphetamine-amphetamine (ADDERALL) 20 mg tablet Take 20 mg by mouth once daily. cloNIDine HCl (CATAPRES) 0.2 mg tablet Take 0.2 mg by mouth three times daily. LORazepam (ATIVAN) 1 mg tablet Take 1 mg by mouth twice daily. oxybutynin (DITROPAN) 2.5 mg tablet Take 1 tablet (2.5 mg) by mouth three times daily. Norgestimate-Ethinyl Estradiol 0.18/0.215/0.25 mg-35 mcg (28) cetirizine HCl (ZYRTEC ORAL) Take by mouth. sertraline (ZOLOFT) 100 mg tablet Take 100 mg by mouth once daily. FAMILY HISTORY Problem Relation Age of Onset Kidney failure Mother Diabetes Mother Hypertension Mother Neuropathy Mother Cervical Cancer Mother Colon Cancer Mother Rheumatologic disease Mother other (ddd) Mother Brain Cancer Father Diabetes Father Hypertension Father Depression Sister ADD/ADHD Sister Depression Brother Social History Tobacco Use Smoking status: Every Day Packs/day: 0.50 Years: 30.00 Total pack years: 15.00 Types: Cigarettes Smokeless tobacco: Never Vaping Use Vaping Use: Never used Substance Use Topics Alcohol use: Not Currently Drug use: Never Objective Physical Exam Vitals and nursing note reviewed. Constitutional: Appearance: Normal appearance. She is obese. She is not ill-appearing. HENT: Mouth/Throat: Cardiovascular: Rate and Rhythm: Normal rate. Pulmonary: Effort: Pulmonary effort is normal. Neurological: Mental Status: She is alert. ASSESSMENT/PLAN: 1. Dental infection - ICD9: 522.4, ICD10: K04.7 (primary diagnosis) - CLINDAMYCIN HCL 300 MG CAPSULE - return to dentist as soon as possible 2. Poorly-controlled hypertension - ICD9: 401.9, ICD10: I10 - Recommend home blood pressure monitoring, to bring results to next visit - Patient encouraged to see her PCP as soon as possible for BP management. - AMLODIPINE 5 MG TABLET - Follow-up with your PCP in 3-5 days if symptoms have not improved or sooner if symptoms worsen - Discussed red flags and need for immediate medical evaluation if any occur. - Discussed supportive care treatment with fluids, rest and analgesia. - Discussed expected course of illness Keila Jorge APRN.[facility] 05-09-2023 History of Present illness Narrative Images from the original note were not included. Subjective Dental Problem Pertinent negatives include no chest pain, chills, fever, headaches or rash. Asia Cordova is a 48 year old female who presents with a dental infection and pain. She has a broken tooth on left lower gum. She has had pain for the past 2 days. She rates pain 9/10. She has used heating pad and ibuprofen. She grinds her teeth and her dentist told her all her fillings are shattered . She wears a mouth guard. She has not had a fever. Blood pressure is noted to be high on rooming intake. Patient states she stopped taking Ditropan as it was causing her legs to swell. She is also out of amlodipine. She denies chest pain, visual changes, headache or dizziness. Review of Systems Constitutional: Negative for chills and fever. HENT: See HPI Respiratory: Negative. Cardiovascular: Negative for chest pain. Skin: Negative for itching and rash. Neurological: Negative for dizziness and headaches. BP (!) 214/125 Pulse 81 Temp 36.2 C (97.2 F) Resp 18 Wt 89.5 kg (197 lb 6.4 oz) LMP 10/03/2018 SpO2 100% BMI 34.97 kg/m PAST MEDICAL HISTORY Diagnosis Date Anaphylaxis Anxiety and depression Environmental allergies Migraines Renal calculi PAST SURGICAL HISTORY Procedure Laterality Date DELIVERY ONLY , low transverse PAST SURGICAL HISTORY OF cold knife conization ALLERGIES Penicillins, Amoxicillin, Cefazolin, Cephalexin, Ciprofloxacin, Lexapro [Escitalopram], and Sulfa (Sulfonamide Antibiotics) MEDICATIONS clindamycin (CLEOCIN) 300 mg capsule Take 1 capsule by mouth four times daily. amLODIPine (NORVASC) 5 mg tablet Take 1 tablet by mouth once daily. Amphetamine-Dextroamphetamine (ADDERALL) 30 mg tablet Take 30 mg by mouth twice daily. dextroamphetamine-amphetamine (ADDERALL) 20 mg tablet Take 20 mg by mouth once daily. cloNIDine HCl (CATAPRES) 0.2 mg tablet Take 0.2 mg by mouth three times daily. LORazepam (ATIVAN) 1 mg tablet Take 1 mg by mouth twice daily. oxybutynin (DITROPAN) 2.5 mg tablet Take 1 tablet (2.5 mg) by mouth three times daily. Norgestimate-Ethinyl Estradiol 0.18/0.215/0.25 mg-35 mcg (28) cetirizine HCl (ZYRTEC ORAL) Take by mouth. sertraline (ZOLOFT) 100 mg tablet Take 100 mg by mouth once daily. FAMILY HISTORY Problem Relation Age of Onset Kidney failure Mother Diabetes Mother Hypertension Mother Neuropathy Mother Cervical Cancer Mother Colon Cancer Mother Rheumatologic disease Mother other (ddd) Mother Brain Cancer Father Diabetes Father Hypertension Father Depression Sister ADD/ADHD Sister Depression Brother Social History Tobacco Use Smoking status: Every Day Packs/day: 0.50 Years: 30.00 Total pack years: 15.00 Types: Cigarettes Smokeless tobacco: Never Vaping Use Vaping Use: Never used Substance Use Topics Alcohol use: Not Currently Drug use: Never Objective Physical Exam Vitals and nursing note reviewed. Constitutional: Appearance: Normal appearance. She is obese. She is not ill-appearing. HENT: Mouth/Throat: Cardiovascular: Rate and Rhythm: Normal rate. Pulmonary: Effort: Pulmonary effort is normal. Neurological: Mental Status: She is alert. ASSESSMENT/PLAN: 1. Dental infection - ICD9: 522.4, ICD10: K04.7 (primary diagnosis) - CLINDAMYCIN HCL 300 MG CAPSULE - return to dentist as soon as possible 2. Poorly-controlled hypertension - ICD9: 401.9, ICD10: I10 - Recommend home blood pressure monitoring, to bring results to next visit - Patient encouraged to see her PCP as soon as possible for BP management. - AMLODIPINE 5 MG TABLET - Follow-up with your PCP in 3-5 days if symptoms have not improved or sooner if symptoms worsen - Discussed red flags and need for immediate medical evaluation if any occur. - Discussed supportive care treatment with fluids, rest and analgesia. - Discussed expected course of illness Keila Jorge APRN.ORDER ENTRY REPRESENTATIVE documented in this encounter [facility] 05-09-2023 Instructions Keila Jorge APRN.CNP - 05/09/2023 7:43 PM EDT ASSESSMENT/PLAN: 1. Dental infection - ICD9: 522.4, ICD10: K04.7 (primary diagnosis) - CLINDAMYCIN HCL 300 MG CAPSULE - return to dentist as soon as possible 2. Poorly-controlled hypertension - ICD9: 401.9, ICD10: I10 - Recommend home blood pressure monitoring, to bring results to next visit - Patient encouraged to see her PCP as soon as possible for BP management. - AMLODIPINE 5 MG TABLET - Follow-up with your PCP in 3-5 days if symptoms have not improved or sooner if symptoms worsen - Discussed red flags and need for immediate medical evaluation if any occur. - Discussed supportive care treatment with fluids, rest and analgesia. - Discussed expected course of illness Keila Jorge APRN.CNP TOOTHACHE: Your exam shows that your toothache is probably due to tooth decay and infection. Poor dental care is the main cause of this problem. Swelling and redness around a painful tooth often means you have a dental abscess. Pain medicine and antibiotics can help reduce symptoms, but you will need to see a dentist within the next few days to have your problem properly treated. Fillings or root canal work may be needed to save your tooth. If the problem is severe, your tooth may need to be pulled. Please return here right away if you have a fever over 101F, can t swallow, or develop severe swelling. HIGH BLOOD PRESSURE GENERAL INFORMATION: The medical term for high blood pressure is hypertension. Many people don't know they have hypertension. You may feel fine even if your blood pressure is too high. High blood pressure can be very serious and can cause strokes, heart attacks, kidney failure, and even . It can be treated and with proper care, you can control your blood pressure and lower your chance for future problems. INSTRUCTIONS: 1. Regular visits to a doctor are an important part of treatment for hypertension. If your doctor has prescribed medicine to lower your blood pressure, you should take it exactly as prescribed. Don't stop taking your medication even if you feel fine, and don't adjust the dosage yourself. 2. Don't take dphi-eyh-iahaetm cold/sinus medications or diet pills because they can raise your blood pressure. Discuss other medicines with your doctor first. 3. You should not smoke. 4. Avoid foods and drinks that are high in sodium (salt). These include smoked meats (such as ham and brody), cheese, canned and prepared frozen foods, butter, and margarine. Read all labels carefully. Do not add salt to your food. 5. If you are overweight, start a weight loss diet and stick to it. 6. Exercise at least 3 times per week after checking with your doctor. This will help reduce stress and keep your weight down. 7. Try to reduce your stress level. Relaxation techniques such as meditation, yoga, or biofeedback may be helpful. CONTACT YOUR DOCTOR IF: You are having any problems that may be related to the medication you are taking. RETURN TO THE ED IF: 1. You have a severe headache, drowsiness, confusion, or dizziness. 2. You have severe chest or back pain. 3. You have shortness of breath. 4. You have weakness, numbness, or tingling in your arms or legs. 5. You have difficulty with your vision. 6. You are coughing up blood or having nosebleeds. documented in this encounter [facility] 03-13-2023 Miscellaneous Notes Attempted to call pt, no answer, no voicemail Sent [employer] message. Sara Sierra Ma Please let patient know that many of her test came back abnormal and I would like her to schedule a follow up to discuss these and make a plan to address them. TC to patient and line rings busy. No option to leave a VM. Please try again later. YOLANDA Cortés Please let patient know her mammogram is inconclusive and she needs further imaging. documented in this encounter [facility] 03-11-2023 Note HNO ID: [id number] Author: Urmila Bartlett Service: ? Author Type: ? Type: Progress Notes Filed: 03/11/2023 12:36 PM Note Text: Patient scheduled her colonoscopy 03-28-2023. Sent Golytely Prep Instructions to her [employer]. Urmila Bartlett [facility] 03-11-2023 Note HNO ID: [id number] Author: Urmila Bartlett Service: ? Author Type: ? Type: Progress Notes Filed: 03/11/2023 12:22 PM Note Text: WSTR OPEN ACCESS QUESTIONNAIRE 1. Are you currently having any new or unusual stomach/gastrointestinal issues at this time such as constipation, diarrhea, abdominal pain, rectal bleeding etc?No 2. Do you have any difficulty swallowing? No 3. Do you have any implanted devices such as a defibrillator, pacemaker, cardiac stents or deep brain stimulator? No 4. Do you take any Blood thinners such as Coumadin, Plavix, Xarelto, Eliquis, Brilinta or any other blood thinner? No 5. Do you have any new or past cardiac (heart) or pulmonary (lung) issues? No 6. Do you currently use any oxygen? No 7. Have you been hospitalized in the past 6 weeks? No 8. Have you had difficulty with anesthesia previously re: Difficult intubation? No Other difficulty or allergic reaction to anesthesia other than post op N/V? No 9. Are you on dialysis? No 10. Do you have any bleeding disorders such as hemophilia or Factor 5? No 11. Are you an Insulin Dependent Diabetic? No IF ANY OF THE TOP ELEVEN QUESTIONS ARE ANSWERED YES PLEASE SCHEDULE THE PATIENT FOR A CONSULT. scheduled 12. Is the patient's BMI 40 or greater? No:Body mass index is 32.59 kg/m?.. 13. Do you take any narcotics or anti-Anxiety medications? 14. Do you use any illegal or recreational drugs including marijuana? No 15. Any alcohol use: No. 16. Have you been diagnosed with chronic liver disease such as hepatitis or cirrhosis? No 17. Do you have a seizure disorder? No 18. Do you have ulcerative colitis or Crohn's disease? No 19. Are you or could you be ? No 20. Any other important health information we should be made aware of prior to your colonoscopy? No To be completed by LIP: Did patient have MAC anesthesia with a previous endoscopy procedure? No Patient appropriate for Open Access Colonoscopy: Yes: appropriate for Open Access Procedure Checklist: Prior to closing the encounter: Complete questionnaire: Yes Confirm Prep order has been Ordered/Pended: Yes. Patient's procedure could be delayed if not given the script for the prep. Please ensure the prep is escripted to pharmacy or printed. Instructions for the prep will print upon filing or pending this smartset. Please send all open access questionnaires to [facility] Pool #[id number] [facility] 03-11-2023 Miscellaneous Notes March 12, 2023 PID: [id number] Asia Cordova [address] [place] [address] Dear Ms. Cordova, Your recent breast imaging exam on 03/10/2023 showed a possible finding that requires additional imaging studies for a complete evaluation. Most such findings are probably benign (not cancer). Your mammogram demonstrates that you have dense breast tissue, which could hide abnormalities. Dense breast tissue, in and of itself, is a relatively common condition. Therefore, this information is not provided to cause undue concern; rather, it is to raise your awareness and promote discussion with your health care provider regarding the presence of dense breast tissue in addition to other risk factors. If you have a healthcare provider who ordered/prescribed your screening mammogram: Please call [phone] or EXT: [phone] to schedule an appointment for your additional imaging (if you have not already done so). If you DO NOT have a healthcare provider (ie you did not have an order/prescription for your screening mammogram): Please call to schedule an appointment for your additional imaging (if you have not already done so). You must have an order/prescription from your physician when calling to schedule your appointment. If your order/prescription is not electronic, you must bring the hard copy with you on the day of your exam to avoid delays. Your imaging studies and reports are kept on file at [facility] as part of your permanent medical record, and are available for your continuing care. Thank you for allowing us to help in meeting your health care needs. Sincerely, Dr. Leal Interpreting Radiologist [facility] (Additional imaging) documented in this encounter [facility] 03-10-2023 Note HNO ID: [id number] Author: Haylee Carr, [employer] Service: ? Author Type: Die Maker Apprentice Type: Progress Notes Filed: 03/10/2023 2:38 PM Note Text: Radiology Service Progress Note PATIENT NAME: Asia Cordova DATE OF SERVICE: March 10, 2023 TIME: 2:13 PM PATIENT IDENTITY VERIFICATION COMPLETED USING TWO (2) IDENTIFIERS: Name and Date of confirmed by patient verbally. FALL SCREENING: Has the patient had 2 falls in the last year or 1 fall with injury or currently using an Ambulatory Assistive Device (Walker, Cane, Wheelchair, Crutches, etc.)? No PATIENT GENDER DATA: Female. status: : No status: NO. PATIENT RELEVANT IMPLANT DATA REVIEWED: Not Applicable RADIOLOGY DEPARTMENT: Mammography PERIPHERAL IV DATA: Not applicable SIGNED BY: Haylee Carr [employer] March 10, 2023 2:13 PM [facility] 03-10-2023 History of Present illness Narrative Radiology Service Progress Note PATIENT NAME: Asia Cordova DATE OF SERVICE: March 10, 2023 TIME: 2:13 PM PATIENT IDENTITY VERIFICATION COMPLETED USING TWO (2) IDENTIFIERS: Name and Date of confirmed by patient verbally. FALL SCREENING: Has the patient had 2 falls in the last year or 1 fall with injury or currently using an Ambulatory Assistive Device (Walker, Cane, Wheelchair, Crutches, etc.)? No PATIENT GENDER DATA: Female. status: : No status: NO. PATIENT RELEVANT IMPLANT DATA REVIEWED: Not Applicable RADIOLOGY DEPARTMENT: Mammography PERIPHERAL IV DATA: Not applicable SIGNED BY: Haylee Carr [employer] March 10, 2023 2:13 PM documented in this encounter [facility] 03-10-2023 Note HNO ID: [id number] Author: Sanam Davis APRN.ORDER ENTRY REPRESENTATIVE Service: ? Author Type: Nurse Practitioner Type: Progress Notes Filed: 03/10/2023 12:07 PM Note Text: Chief Complaint Patient presents with: [facility] HPI Asia Cordova is a 47 year old female who presents here today for Above Complaints.. Patient presents to [facility] care. Patient reports she see psychiatry and therapist. Patient has history of anxiety and depression. Past medical history, appointments, medications, allergies reviewed. Previous Medical History PAST MEDICAL HISTORY Diagnosis Date Anxiety and depression Environmental allergies Renal calculi Previous Surgical History PAST SURGICAL HISTORY Procedure Laterality Date DELIVERY ONLY , low transverse PAST SURGICAL HISTORY OF cold knife conization Family History No family history on file. Patient Allergies ALLERGIES Allergen Reactions Penicillins Rash, Swelling Amoxicillin Rash Cefazolin Vomiting Cephalexin Hives, Itching Ciprofloxacin Vomiting Lexapro [Escitalopr* Rash Sulfa (Sulfonamide * Rash, Hives, Shortness of Breath Current Medications Current Outpatient Medications on File Prior to Visit Medication Sig cetirizine HCl (ZYRTEC ORAL) Take by mouth. Amphetamine-Dextroamphetamine (ADDERALL) 30 mg tablet Take 30 mg by mouth twice daily. dextroamphetamine-amphetamine (ADDERALL) 20 mg tablet Take 20 mg by mouth once daily. predniSONE (DELTASONE) 10 mg tablet Take 4 tabs daily for 3 days, then 2 tabs daily for 3 days, then 1 tab daily for 3 days with food. phenazopyridine (PYRIDIUM) 200 mg tablet Take 1 tablet by mouth three times daily as needed. (Patient not taking: Reported on 01/23/2022 ) Norgestimate-Ethinyl Estradiol 0.18/0.215/0.25 mg-35 mcg (28) sertraline (ZOLOFT) 100 mg tablet Take 100 mg by mouth once daily. No current facility-administered medications on file prior to visit. Social History Social History Tobacco Use Smoking status: Every Day Smokeless tobacco: Never Review of Symptoms REVIEW OF SYSTEMS GENERAL: No weight loss, malaise or fevers HEENT: Negative for frequent or significant headaches, Eyes Positive for recent change in vision recent bifocals NECK: Negative for lumps, goiter, pain and significant neck swelling RESPIRATORY: Negative for cough, hemoptysis, wheezing, COPD, dyspnea or shortness of breath CARDIOVASCULAR: palptations with anxiety GI: No nausea, vomiting, or diarrhea : Positive for frequency MEDICAL EQUIPMENT REPAIRER: Negative for abnormal vaginal bleeding, abnormal vaginal discharge MUSCULOSKELETAL: Negative for joint pain or swelling, back pain or muscle pain SKIN: Negative for lesions, rash, and itching PSYCH: Positive for depression: , sleep disturbance: , and anxiety: HEMATOLOGY/LYMPHOLOGY: Negative for prolonged bleeding, bruising easily or swollen nodes ENDOCRINE: Negative for cold or heat intolerance, polyuria, polydipsia and goiter NEURO: No history of headaches, syncope, paralysis, seizures or tremors EXAM: BP 190/110 Pulse 90 Resp 16 Ht 160 cm (5' 3 ) Wt 83.5 kg (184 lb) LMP 10/03/2018 BMI 32.59 kg/m? General Appearance: Well appearing, alert, in no acute distress, well-hydrated, well nourished.. Skin: Skin color, texture, turgor normal, no suspicious rashes or lesions. Head: Normocephalic, no masses, lesions, tenderness or abnormalities. Neck: Supple, no adenopathy; thyroid symmetric, normal size, no bruits. Lungs: Lungs clear to auscultation. No wheezing, rhonchi, rales.. Heart: RRR without murmur, gallop, or rubs. No ectopy. Abdomen: Normal abdominal exam, Abdomen soft, non-tender. Bowel sounds normal. No masses, organomegaly Musculoskeletal: No joint swelling, deformity, or tenderness. Peripheral Pulses: Normal. Neurologic: Gait normal. Reflexes normal and symmetric. Sensation grossly intact.. Health Maintenance List HEPATITIS B(1 of 3 - 3-dose series) Never done PNEUMOCOCCAL(1 - PCV) Never done HEPATITIS C SCREENING Never done HIV SCREENING Never done DTAP,TDAP,TD(1 - Tdap) Never done PAP TESTING Never done HPV TESTING Never done MAMMOGRAM Never done LIPID SCREEN Never done DIABETES SCREEN Never done COLORECTAL CANCER SCREENING Never done COVID-19 VACCINE(3 - Booster for Moderna series) due on 04/22/2021 DEPRESSION ASSESSMENT Never done INFLUENZA(Season Ended) due on 05/30/2023 ASSESSMENT/PLAN: 1. Medication management - ICD9: V58.69, ICD10: Z79.899 (primary diagnosis) - CBC + DIFF - COMP METABOLIC PANEL 2. Encounter for lipid screening for cardiovascular disease - ICD9: V77.91, V81.2, ICD10: Z13.220, Z13.6 - LIPID PANEL, NONFASTING 3. Screening for diabetes mellitus - ICD9: V77.1, ICD10: Z13.1 - HGB A1C 4. Encounter for screening mammogram for malignant neoplasm of breast - ICD9: V76.12, ICD10: Z12.31 - Set up for mammogram, yearly mammogram recommended - Encouraged monthly BSE - (more content not included)... [facility] 10-26-2021 Instructions Beau Cortes APRN.SHARON - 10/26/2021 8:06 PM EST [facility] PATIENT INFO ACUTE SINUSITIS OVERVIEW Rhinosinusitis, or more commonly sinusitis, is the medical term for inflammation (swelling) of the lining of the sinuses and nose. The sinuses are the hollow areas within the facial bones that are connected to the nasal openings. The sinuses are lined with mucous membranes, similar to the inside of the nose. There are two main types of sinusitis: acute and chronic. Acute sinusitis is inflammation that lasts for less than four weeks while chronic sinusitis lasts for more than 12 weeks. Acute sinusitis is common, affecting approximately one million people per year in the [place]. ACUTE SINUSITIS CAUSES The most common cause of acute sinusitis is a viral infection associated with the common cold. Bacterial sinusitis occurs much less commonly, in only 0.5 to 2 percent of cases, usually as a complication of viral sinusitis. Because antibiotics are effective only against bacterial, and not viral, infections, most people do not need antibiotics for acute sinusitis. ACUTE SINUSITIS SYMPTOMS Symptoms of acute sinusitis include: Nasal congestion or blockage Thick, yellow to green discharge from the nose Pain in the teeth Pain or pressure in the face that is worse when bending forwards Other acute sinusitis symptoms can include fever (temperature greater than 100.4 F or 38 C), fatigue, cough, difficulty or inability to smell, ear pressure or fullness, headache, and bad breath. In most cases, these symptoms develop over the course of one day and begin to improve within seven to 10 days. DO I NEED TO BE EXAMINED? It is difficult to know if you have a viral or bacterial sinus infection initially. However, most people with a viral infection improve without treatment within seven to 10 days after symptoms begin. Bacterial sinusitis also sometimes improves without treatment, although it can also worsen and require treatment. If one or more of the following bothersome symptoms last more than seven days, an examination by a healthcare provider is recommended: Thick, yellow to green discharge from the nose Face or tooth pain, especially if it is only on one side Tenderness over the maxillary sinuses (located on the left and right side of the nose, inside the cheekbones) Symptoms that initially improve and then worsen When to seek immediate help If you have one or more of the following symptoms, you should seek medical attention immediately (even if symptoms have been present for less than seven days): High fever (>102.5 F or 39.2 C) Sudden, severe pain in the face or head Double vision or difficulty seeing Confusion or difficulty thinking clearly Swelling or redness around one or both eyes Stiff neck, shortness of breath ACUTE SINUSITIS TREATMENT Initial treatment of a sinus infection aims to relieve symptoms since almost everyone will improve within the first seven to 10 days. Experts recommend avoiding antibiotics during this time unless there is clear evidence of a severe bacterial infection. Initial treatment Pain relief Non-prescription pain medications, such as acetaminophen (eg, Tylenol ) or ibuprofen (eg, Motrin , Advil ) are recommended for pain. Nasal irrigation and saline sprays Rinsing the nose with a salt-water (saline) solution is called nasal irrigation or nasal lavage. Saline is also available in a standard nasal spray, although this is not as effective as using larger amounts of water in an irrigation. Nasal irrigation is particularly useful for treating drainage down the back of the throat, sneezing, nasal dryness, and congestion. The treatment helps by rinsing out allergens and irritants from the nose. Saline rinses also clean the nasal lining and can be used before applying sprays containing medications, to get a better effect from the medication. Nasal lavage with warmed saline can be performed as needed, once per day, or twice daily for increased symptoms. Nasal lavage carries few risks when performed correctly. Saline nasal sprays and irrigation kits can be purchased [id number]. Saline mixes can also be purchased or patients can make their own solution. A variety of devices, including bulb syringes, Neti pots, and bottle sprayers, may be used to perform nasal lavage; instructions for nasal lavage are provided in the table. At least 200 mL (about 3/4 cup) of fluid is recommended for each nostril. Nasal decongestants Nasal decongestant sprays, including oxymetazoline (Afrin ) and phenylephrine (Bharath-synephrine ) can be used to temporarily treat congestion. However, these sprays should not be used for more than two to three days due to the risk of rebound congestion (when the nose is congested constantly unless the medication is used repeatedly). Other treatments Other treatments for congestion, such as oral antihistamines (such as diphenhydramine/Benadryl ) or zinc supplements are not proven to improve symptoms of sinusitis and can have unwanted side effects. Medications to thin secretions (such as guaifenesin) may help to clear mucus. Secondline treatment If symptoms have not improved in seven to ten days, you should arrange for medical evaluation. You may need further treatment. Nasal glucocorticoids Nasal glucocorticoids (steroids delivered by a nasal spray) can help to reduce swelling inside the nose, usually within two to three days. These drugs have few side effects and dramatically relieve symptoms in most people. There are a number of nasal glucocorticoids available by prescription. These drugs are all effective, but differ in how frequently they must be used and how much they cost. You may need to use a nasal decongestant for a few days before starting a nasal glucocorticoid to reduce nasal swelling; this will allow the nasal glucocorticoid to reach more areas of the nasal passages Do I need an antibiotic? If bothersome symptoms of sinusitis persist for 10 or more days, it is possible that you have bacterial sinusitis. The need for antibiotics depends upon the severity of your symptoms. Mild symptoms There are two possible treatment options if you have mild sinusitis symptoms: treat with antibiotics or continue to watch and wait for one week. Watching and waiting is a reasonable option because up to 75 percent of people with bacterial sinusitis improve within one month without antibiotics. During the watch and wait period, treatments to improve symptoms are recommended. If symptoms worsen or do not improve after watching and waiting, treatment with an antibiotic is usually recommended. Treatments to relieve symptoms are recommended while using antibiotics. Moderate or severe symptoms Most healthcare providers will prescribe an antibiotic for moderate to severe symptoms (temperature >38.3 C or 101 F and/or severe pain that interferes with usual activities). Treatments to relieve symptoms are also recommended during antibiotic treatment. One of the least expensive and most effective antibiotics for sinusitis is amoxicillin. An alternate antibiotic will be prescribed if you are allergic to penicillin. Regardless of which antibiotic is prescribed, it is important to follow the dosing instructions carefully and to finish the entire course of treatment. Taking the medication less often than prescribed or stopping the medication early can lead to complications, such as a recurrent infection. What if I do not improve with treatment? If you do not improve or worsen after a course of antibiotics, you should be re-examined. In some cases, symptoms of sinusitis improve but then recur. This is usually because the infection was not completely eliminated by the antibiotic. An alternate antibiotic, extended antibiotic treatment, and/or further testing may be recommended, depending upon your individual situation. URINARY TRACT INFECTION GENERAL INFORMATION: A urinary tract infection (UTI) is an infection of the bladder or kidneys. A bladder infection, called cystitis, is the more common type. If the infection travels up to the kidneys, it is called pyelonephritis. This can be more serious. UTIs are a common problem in women. Having sexual relations can leave a woman more susceptible to developing a UTI, but it is not sexually transmitted like gonorrhea. Some women have a problem with recurrent UTIs. INSTRUCTIONS: 1. Your doctor prescribed an antibiotic to treat the UTI. Take exactly as directed. Be sure to take all the medication prescribed, even if your symptoms disappear. If you stop treatment early, the infection may not be fully treated and the symptoms could come back again. 2. Get plenty of rest. You may take acetaminophen for fever and aches. 3. Drink 6 to 8 glasses of fluids, especially water, every day. This helps wash out germs from your urinary tract. Cranberry juice or other sources of vitamin C are also good for you. 4. Urinate often, as soon as you feel the urge. Empty your bladder completely. Urinate before and after you have sex. 5. Always wipe from front to back after going to the bathroom. This pushes germs away from your bladder, rather than towards it. 6. Showers are better than baths, and you should wash the genital area daily. Avoid bubble bath or bath oils if you do take a bath. 7. Wear underwear and pantyhose with a cotton crotch. CONTACT YOUR DOCTOR: 1. You have a temperature over 102F (38.8C) after 48 hours on medication. 2. You notice blood in your urine. 3. Your symptoms don't improve in 2 days. 4. You develop nausea, vomiting, diarrhea, or a rash. 5. You develop new or unexplained symptoms. These may be related to the medication you are taking. 6. Your symptoms return after you finish treatment. RETURN TO THE EMERGENCY DEPARTMENT IF: You develop vomiting and can't keep your medication or fluids down. documented in this encounter [facility] 10-26-2021 History of Present illness Narrative Subjective Nontoxic-appearing female presents urgent care chief complaint possible UTI/sinus infection. Duration of symptoms sinus infection 4 days. UTI 2 days. Patient states recently diagnosed with COVID-19. Symptom onset of COVID-19 11 days ago. Patient states history of UTIs in the past this does feel similar. Denies use of any OTC medication use. Denies any new sick contacts. Denies any significant pain currently. Denies any fevers productive cough chest pain shortness of breath difficulty breathing hemoptysis nausea vomiting abdominal pain urological abnormalities chance of STD concerns or rashes. Past medical history prescription medication use allergies reviewed. BP 144/84 Pulse 89 Temp 36.7 C (98 F) (Tympanic) Resp 18 Wt 83.2 kg (183 lb 6.4 oz) LMP 10/03/2018 SpO2 98% .Patient presents with: Urinary Frequency: frequency and pressure x 2 days Pain, Sinus: sinus pain and pressure x 4 days PAST MEDICAL HISTORY Diagnosis Date Anxiety and depression Environmental allergies Renal calculi PAST SURGICAL HISTORY Procedure Laterality Date DELIVERY ONLY , low transverse PAST SURGICAL HISTORY OF cold knife conization ALLERGIES Amoxicillin and Sulfa (Sulfonamide Antibiotics) MEDICATIONS Norgestimate-Ethinyl Estradiol 0.18/0.215/0.25 mg-35 mcg (28) cetirizine HCl (ZYRTEC ORAL) Take by mouth. sertraline (ZOLOFT) 100 mg tablet Take 100 mg by mouth once daily. phenazopyridine (PYRIDIUM) 200 mg tablet Take 1 tablet by mouth three times daily as needed. History reviewed. No pertinent family history. Social History Tobacco Use Smoking status: Current Every Day Smoker Smokeless tobacco: Never Used Substance Use Topics Alcohol use: Not on file Drug use: Not on file HPI Review of Systems Constitutional: Negative for chills, fever and malaise/fatigue. HENT: Positive for congestion and sinus pain. Negative for ear discharge, ear pain and sore throat. Eyes: Negative for blurred vision, pain, discharge and redness. Respiratory: Negative for cough, hemoptysis, sputum production, shortness of breath, wheezing and stridor. Cardiovascular: Negative for chest pain. Gastrointestinal: Negative for abdominal pain, diarrhea, nausea and vomiting. Genitourinary: Positive for dysuria, frequency and urgency. Negative for flank pain and hematuria. Musculoskeletal: Negative for myalgias. Skin: Negative for itching and rash. Neurological: Negative for dizziness and headaches. Objective Physical Exam Constitutional: General: She is not in acute distress. Appearance: She is not diaphoretic. HENT: Head: Normocephalic. Nose: Right Sinus: Maxillary sinus tenderness present. Left Sinus: Maxillary sinus tenderness present. Mouth/Throat: Mouth: Mucous membranes are moist. Pharynx: Oropharynx is clear. Uvula midline. No pharyngeal swelling, oropharyngeal exudate, posterior oropharyngeal erythema or uvula swelling. Eyes: Conjunctiva/sclera: Conjunctivae normal. Pupils: Pupils are equal, round, and reactive to light. Cardiovascular: Rate and Rhythm: Normal rate and regular rhythm. Heart sounds: Normal heart sounds. Pulmonary: Effort: Pulmonary effort is normal. No tachypnea, accessory muscle usage or respiratory distress. Breath sounds: Normal breath sounds. No stridor. Abdominal: Palpations: Abdomen is soft. Tenderness: There is no abdominal tenderness. There is no right CVA tenderness or left CVA tenderness. Musculoskeletal: Cervical back: Normal range of motion and neck supple. No rigidity or tenderness. Lymphadenopathy: Cervical: No cervical adenopathy. Skin: General: Skin is warm and dry. Neurological: Mental Status: She is alert and oriented to person, place, and time. ASSESSMENT/PLAN: 1. Urinary frequency - ICD9: 788.41, ICD10: R35.0 (primary diagnosis) - UA DIP, URINE (POC) - URINE CULTURE 2. Viral sinusitis - ICD9: 473.9, 079.99, ICD10: J32.9, B97.89 Urine positive for leukocytes and blood. Patiently placed on Keflex. Has tolerated this antibiotic within the last year. Pyridium prescribed as needed. Has tolerated this previously. Red flags for prompt reevaluation discussed. Patient was educated on supportive therapies. Patient will follow up with primary care provider as needed. Patient was instructed to immediately proceed to emergency room for any new, worsening, or symptoms lasting longer than anticipated. The patient's clinical presentation is otherwise unremarkable at this time. Based on exam and clinical finding, the patient is stable for discharge. Plan of care was discussed with patient. Patient verbalizes understanding and agrees to plan of care. This note was generated using iWantoo software. It may contain errors in wording, punctuation, or spelling. Beau Cortes APRN.SHARON documented in this encounter [facility] Diagnosis Abnormal mammogram- Primary Abnormal mammogram, unspecified documented in this encounter [facility] note* Diagnosis Dental infection- Primary Acute apical periodontitis of pulpal origin Poorly-controlled hypertension documented in this encounter [facility] note* Diagnosis Hypertension, essential- Primary Unspecified essential hypertension Migraine without aura and without status migrainosus, not intractable Migraine without aura, without mention of intractable migraine without mention of status migrainosus documented in this encounter [facility] note* Diagnosis Primary hypertension- Primary Unspecified essential hypertension Anxiety with depression documented in this encounter [facility] note* Diagnosis Viral gastroenteritis- Primary Intestinal infection due to other organism, not elsewhere classified documented in this encounter [facility] note* Diagnosis Sore throat- Primary Acute pharyngitis documented in this encounter [facility] note* Diagnosis Primary hypertension Unspecified essential hypertension Hypertension, essential Unspecified essential hypertension documented in this encounter [facility] note* Diagnosis Encounter for screening mammogram for malignant neoplasm of breast Other screening mammogram documented in this encounter [facility] note* Diagnosis Hypertension, essential- Primary Unspecified essential hypertension documented in this encounter [facility] note* Diagnosis Hypertension, essential Unspecified essential hypertension documented in this encounter [facility] note* Diagnosis Hypertension, essential- Primary Unspecified essential hypertension documented in this encounter [facility] note* Diagnosis Medication management- Primary Encounter for long-term (current) use of other medications Hypertension, essential Unspecified essential hypertension Anaphylaxis, sequela documented in this encounter [facility] note* Diagnosis Hypertension, essential Unspecified essential hypertension documented in this encounter [facility] for referral (narrative)* Diagnostic Procedure Only (Routine) - Pending Review Specialty Diagnoses / Procedures Referred By Tashia mark Referred To Contact [facility] Diagnoses Abnormal mammogram Procedures US BREAST LTD RIGHT US BREAST UNI REAL TIME WITH IMAGE LIMITED Sanam Davis APRN.CNP [address] [place] [address] [facility] [address] [place] [phone] Referral ID Status Reason Start Date Expiration Date Visits Requested Visits Authorized [id number] Pending Review Auto-Generat ed Referral 03/11/2023 04/09/2024 1 1 * Diagnostic Procedure Only (Routine) - Pending Review Specialty Diagnoses / Procedures Referred By Heleneac t Referred To Contact [facility] Diagnoses Abnormal mammogram Procedures US BREAST LTD LEFT US BREAST UNI REAL TIME WITH IMAGE LIMITED Sanam Davis APRN.CNP [address] [place], [place] [id number] [facility] [address] [place] [address] Referral ID Status Reason Start Date Expiration Date Visits Requested Visits Authorized [id number] Pending Review Auto-Generat ed Referral 03/11/2023 04/09/2024 1 1 * Diagnostic Procedure Only (Routine) - Pending Review Specialty Diagnoses / Procedures Referred By Tashia t Referred To Contact [facility] Diagnoses Abnormal mammogram Procedures LAWANDA DIAGNOSTIC BILATERAL DIAGNOSTIC MAMMOGRAPHY COMPUTER-AIDED DETCJ BI Sanam Davis APRN.CNP [address] [place], [place] [id number] [facility] [address] [place] [address] Referral ID Status Reason Start Date Expiration Date Visits Requested Visits Authorized [id number] Pending Review Auto-Generat ed Referral 03/11/2023 04/09/2024 1 1 [facility] for referral (narrative)* Diagnostic Procedure Only (Routine) - Closed Specialty Diagnoses / Procedures Referred By Tashia t Referred To Contact [facility] Diagnoses Encounter for screening mammogram for malignant neoplasm of breast Procedures LAWANDA SCREENING SCREENING MAMMOGRAPHY BI 2-VIEW BREAST INC CAD Sanam Davis APRN.CNP [address] [place] [id number] [facility] [address] [place] [address] Referral ID Status Reason Start Date Expiration Date V isits Requested Visits Authorized [id number] Closed Auto-Generate d Referral 03/10/2023 04/08/2024 1 1 [facility]* Diagnostic Procedure Only (Routine) - Closed Specialty Diagnoses / Procedures Referred By Tashia mark Referred To Contact [facility] Diagnoses Encounter for screening mammogram for malignant neoplasm of breast Procedures LAWANDA SCREENING SCREENING MAMMOGRAPHY BI 2-VIEW BREAST INC CAD Sanam Davis APRN.ORDER ENTRY REPRESENTATIVE [address] [place] [address] [facility] [address] [place] [address] Referral ID Status Reason Start Date Expiration Date V isits Requested Visits Authorized [id number] Closed Auto-Generate d Referral 03/10/2023 04/08/2024 1 1 [facility] Concerns Infection Onset Date Last Indicated Resolved Time COVID-19 Confirmed 10/15/2021 10/15/2021 Reason for Referral Specialty Diagnoses / Procedures Referred By Tashia mark Referred To Contact Diagnoses Anaphylaxis, sequela Sanam Davis APRN.ORDER ENTRY REPRESENTATIVE [address] [place] [address] Referral ID Status Reason Start Date Expiration Date Visits Re quested Visits Authorized [id number] Closed 1 1 Summary Purpose Family History No Family History Records Found Advance Directives No Advanced Directives Records Found Additional Source Comments Source Comments (unrecognize d section and content) In the event this informatio n is protected by the Federal Confidentiality of Alcohol and Drug Abuse Patient Records regulations: The Federal rules restrict any use of the information to criminally investigate or prosecute any alcohol or drug abuse patient.[facility] the event this information is protected by the Federal Confidentiality of Alcohol and Drug Abuse Patient Records regulations: The Federal rules restrict any use of the information to criminally investigate or prosecute any alcohol or drug abuse patient.[facility] the event this information is protected by the Federal Confidentiality of Alcohol and Drug Abuse Patient Records regulations: The Federal rules restrict any use of the information to criminally investigate or prosecute any alcohol or drug abuse patient.[facility] the event this information is protected by the Federal Confidentiality of Alcohol and Drug Abuse Patient Records regulations: The Federal rules restrict any use of the information to criminally investigate or prosecute any alcohol or drug abuse patient.[facility] the event this information is protected by the Federal Confidentiality of Alcohol and Drug Abuse Patient Records regulations: The Federal rules restrict any use of the information to criminally investigate or prosecute any alcohol or drug abuse patient.[facility] the event this information is protected by the Federal Confidentiality of Alcohol and Drug Abuse Patient Records regulations: The Federal rules restrict any use of the information to criminally investigate or prosecute any alcohol or drug abuse patient.[facility] the event this information is protected by the Federal Confidentiality of Alcohol and Drug Abuse Patient Records regulations: The Federal rules restrict any use of the information to criminally investigate or prosecute any alcohol or drug abuse patient.[facility] the event this information is protected by the Federal Confidentiality of Alcohol and Drug Abuse Patient Records regulations: The Federal rules restrict any use of the information to criminally investigate or prosecute any alcohol or drug abuse patient.[facility] the event this information is protected by the Federal Confidentiality of Alcohol and Drug Abuse Patient Records regulations: The Federal rules restrict any use of the information to criminally investigate or prosecute any alcohol or drug abuse patient.[facility] the event this information is protected by the Federal Confidentiality of Alcohol and Drug Abuse Patient Records regulations: The Federal rules restrict any use of the information to criminally investigate or prosecute any alcohol or drug abuse patient.[facility] the event this information is protected by the Federal Confidentiality of Alcohol and Drug Abuse Patient Records regulations: The Federal rules restrict any use of the information to criminally investigate or prosecute any alcohol or drug abuse patient.[facility] the event this information is protected by the Federal Confidentiality of Alcohol and Drug Abuse Patient Records regulations: The Federal rules restrict any use of the information to criminally investigate or prosecute any alcohol or drug abuse patient.[facility] the event this information is protected by the Federal Confidentiality of Alcohol and Drug Abuse Patient Records regulations: The Federal rules restrict any use of the information to criminally investigate or prosecute any alcohol or drug abuse patient.[facility] the event this information is protected by the Federal Confidentiality of Alcohol and Drug Abuse Patient Records regulations: The Federal rules restrict any use of the information to criminally investigate or prosecute any alcohol or drug abuse patient.[facility] the event this information is protected by the Federal Confidentiality of Alcohol and Drug Abuse Patient Records regulations: The Federal rules restrict any use of the information to criminally investigate or prosecute any alcohol or drug abuse patient.[facility] the event this information is protected by the Federal Confidentiality of Alcohol and Drug Abuse Patient Records regulations: The Federal rules restrict any use of the information to criminally investigate or prosecute any alcohol or drug abuse patient.[facility] the event this information is protected by the Federal Confidentiality of Alcohol and Drug Abuse Patient Records regulations: The Federal rules restrict any use of the information to criminally investigate or prosecute any alcohol or drug abuse patient.[facility] Reason for Visit (unrecogniz ed section and content) Reason Comments Results Reason Comments Dental Problem Cracked fillings, pa in in gums x2 days Reason Comments Follow Up Headache Reason Comments Follow Up Blood pressure Reason Comments Results Reason Comments Headache abdominal and leg cr amping, body pains, fatigue, nausea x 1 day Reason Comments Sore Throat ST x 1 day Reason Onset Date Comments Refill Request 07/22/2023 Reason Comments Refill Request Reason Comments ED Follow-up Reason Comments Follow Up Care Teams (unrecognized sec tion and content) 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 Start Date End Date Sanam Davis, MANAGER MANUFACTURING.ORDER ENTRY REPRESENTATIVE [facility] [place] [address] PCP - General Family Medicine 03/10/23 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 Specialty Start Date End Date Sanam Davis, MANAGER MANUFACTURING.ORDER ENTRY REPRESENTATIVE [address] [place] [phone] PCP - General Family Medicine 03/10/23 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 Specialty Start Date End Date Sanam Davis, MANAGER MANUFACTURING.ORDER ENTRY REPRESENTATIVE [address] [place] [address] [phone] PCP - General Family Medicine 03/10/23 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 Specialty Start Date End Date Sanam Davis, MANAGER MANUFACTURING.ORDER ENTRY REPRESENTATIVE [address] [place] [phone] PCP - General Family Medicine 03/10/23 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 Specialty Start Date End Date Sanam Davis, MANAGER MANUFACTURING.ORDER ENTRY REPRESENTATIVE [address] [place] [address] [phone] PCP - General Family Medicine 03/10/23 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 Specialty Start Date End Date Sanam Davis, MANAGER MANUFACTURING.ORDER ENTRY REPRESENTATIVE [address] [place] [phone] PCP - General Family Medicine 03/10/23 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 Specialty Start Date End Date Sanam Davis APRN.ORDER ENTRY REPRESENTATIVE [address] [place] [phone] PCP - General Family Medicine 03/10/23 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 Specialty Start Date End Date Sanam Davis APRN.ORDER ENTRY REPRESENTATIVE [address] [place] [address], [place] [address] PCP - General Family Medicine 03/10/23 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 Specialty Start Date End Date Sanam Davis APRN.ORDER ENTRY REPRESENTATIVE [address] [place] [address], [place] [address] PCP - General Family Medicine 03/10/23 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 This clinical summary was aggregated from multiple sources. Caution should be exercised in using it in the provision of clinical care. This summary normalizes information from multiple sources, and as a consequence, information in this document may materially change the coding, format and clinical context of patient data. In addition, data may be omitted in some cases. CLINICAL DECISIONS SHOULD BE BASED ON THE PRIMARY CLINICAL RECORDS. [employer] [facility]. provides no warranty or guarantee of the accuracy or completeness of information in this document.
--- NOTE | 2023-11-14 12:10 | RAD_ITS ---
STUDY: X-RAY CHEST REASON FOR EXAM: Female, 48 years old. Chest pain TECHNIQUE: PA and lateral views of the chest. COMPARISON: Comparison is made with prior study dated August 14, 2023. FINDINGS: EKG electrodes are seen. The lungs are clear and expanded. There is no demonstrated pleural abnormality. Normal size heart. Normal mediastinum and vicenta. Normal visualized pulmonary arteries. Normal visualized aortic arch and descending thoracic aorta. Normal visualized thoracic spine. Normal visualized ribs, clavicles, and shoulders. There is no demonstrated abnormality of the visualized soft tissue structures of the upper abdomen. RAD/Chest PA and Lateral IMPRESSION: Normal x-ray examination of the chest. Electronically Signed: Yuan Rodrigez MD at 12:29 EST ,
[2023-11-14 12:12] LABS: BNP,B-Type NATRIURETIC PEPTIDE 12.6 pg/mL (0-100)
[2023-11-14 13:06] VITALS: BP 120/73; PULSE 94; RESP 14; O2SAT 98
[2023-11-14 13:30] LABS: Reflex Troponin-HS? (from REC) Y
[2023-11-14] MEDS: Ketorolac 15 MG/ML Vial IV (13:54)
[2023-11-14 14:00] LABS: Troponin-I HS 30 pg/mL (3.0-54.0)
[2023-11-14 14:17] VITALS: BP 123/89; PULSE 77; RESP 16; TEMP 36.5; O2SAT 99
== END 2023-11-14 14:18 | disposition home or self-care (01) ==
PROVIDERS: Physician Assistant; Emergency Provider Emergency Medicine; PCP Nurse Practitioner Family; Visit Provider Emergency Medicine
DX: R07.89 Other chest pain (principal); F41.9 Anxiety disorder, unspecified; F17.210 Nicotine dependence, cigarettes, uncomplicated; I10 Essential (primary) hypertension; Z79.899 Other long term (current) drug therapy; F32.A Depression, unspecified; R06.02 Shortness of breath
CPT/HCPCS: 71046; 80048; 83880; 84484; 85025; 87631; 93005; 96374; 99284; A4216

== ENCOUNTER 2024-01-20 12:47 | Emergency (ER) | payer MEDICAID, SELFPAY ==
[2024-01-20 12:48] VITALS: BP 142/81; PULSE 75; RESP 18; TEMP 36.2; O2SAT 95; BMI 34.1
--- NOTE | 2024-01-20 13:21 | EDS_ITS ---
HPI History of Present Illness Chief Complaint: Hypertension Informant: patient Onset/Context/Timing Onset: Today Context: Gradual Onset Timing: Continuous Quality: Urticaria, pruritic Location: Generalized Worsened by: Nothing Relieved by: Benadryl Narrative Narrative: Patient presents with generalized itching that began this morning. Patient states that she has a history of allergic reactions. Patient states she started seeing some hives that were generalized today. Patient states she took some Benadryl. Patient states she went to the urgent care and was told to come to the emergency department because her blood pressure was elevated. Patient states that she forgot to take her blood pressure medications this morning. Patient states she left the urgent care and went home and took her blood pressure medications prior to coming to the emergency department. Currently, patient's blood pressure is only slightly elevated at 142/81. Patient states she was having some tightness across her chest earlier today. Patient denies any shortness of breath. Patient denies any cough. Patient denies any swelling of her throat or tongue. Patient states she has a history of allergic reactions but did not feel it was bad enough to take her EpiPen. [facility] Medical History ADHD Anxiety COVID-19 Depression Hypertension Kidney stone Migraine UTI (urinary tract infection) Home Medications cetirizine 10 mg capsule (Zyrtec) 10 mg PO DAILY 11/07/18 [History Last Taken Unknown] sertraline 100 mg tablet (Zoloft) 100 mg PO DAILY 11/07/18 [History Last Taken Unknown] norgestimate-ethinyl estradiol 0.18 mg/0.215mg/0.25mg-35 mcg(28)tablet 1 tab PO DAILY 09/10/21 [History Last Taken Unknown] epinephrine 0.3 mg/0.3 mL injection, auto-injector (EpiPen 2-Rudi) 0.3 mg (0.3 mL) IM Q15M PRN anaphylaxis #2 ea 12/18/22 [Rx Last Taken Unknown] aripiprazole 5 mg tablet 2.5 mg PO QHS 11/14/23 [History Last Taken Unknown] dextroamphetamine-amphetamine 30 mg tablet 30 mg PO BID 11/14/23 [History Last Taken Unknown] hydrochlorothiazide 25 mg tablet 25 mg PO DAILY 11/14/23 [History Last Taken Unknown] labetalol 100 mg tablet 100 mg PO Q12H 11/14/23 [History Last Taken Unknown] lisinopril 20 mg tablet 20 mg PO DAILY 11/14/23 [History Last Taken Unknown] losartan 25 mg tablet 25 mg PO DAILY 11/14/23 [History Last Taken Unknown] prednisone 20 mg tablet 40 mg (2 x 20 mg) PO DAILY #8 tabs 01/20/24 [Rx Last Taken Unknown] Allergy/AdvReac Type Severity Reaction Status Date / Time cephalexin Allergy Intermediate Hives Verified 01/20/24 12:52 amoxicillin [Amoxicillin] Allergy Rash Verified 01/20/24 12:52 cefazolin Allergy Vomiting Verified 01/20/24 12:52 Sulfa (Sulfonamide Allergy Hives Verified 01/20/24 12:52 Antibiotics) ciprofloxacin [From Cipro] AdvReac Vomiting Verified 01/20/24 12:52 Surgical History (Updated 01/20/24 @ 13:[address] Adolph Daly DO) Hx of section Social History Smoking Status: Current every day smoker tobacco type: cigarettes ROS ROS ED Constitutional Constitutional ED: Denies chills or fever(s) Eyes Eyes: Denies blurry vision or change in vision ENT ENT ED: Denies rhinorrhea or sore throat Cardiovascular Cardiovascular: Reports chest pain; Denies palpitations Respiratory/Chest Respiratory/Chest: Denies cough or dyspnea Gastrointestinal Gastrointestinal: Denies nausea or vomiting Genitourinary Genitourinary ED: Reports urinary frequency; Denies dysuria or hematuria Musculoskeletal Musculoskeletal: Reports back pain; Denies neck pain Integumentary Reports rash; Denies abscess Neurologic Neurologic: Denies headache(s) or weakness Allergic/Immunologic Allergic/Immunologic ED: Reports urticaria; Denies mouth swelling EXAM Physical Exam Const Vital Signs: 01/20/24 12:48 01/20/24 12:56 Temperature 97.1 F L Temperature Source Temporal Pulse Rate 75 Respiratory Rate 18 Respiratory Effort Normal Respiratory Pattern Normal Blood Pressure 142/81 H Blood Pressure Mean 101 Pulse Ox 95 Oxygen Delivery Method Room Air Positive well nourished, well developed and obese General Appearance ED: well developed and NAD Nutritional Appearance: obese HEENT Reports moist mucous membranes HEENT Narrative: Oral mucosa is pink and moist. Oropharynx is clear. Airway is patent. Neck supple and no JVD Resp normal respiratory effort and clear to auscultation bilaterally Cardio regular rate and regular rhythm GI non-tender and non-distended Extremity normal to inspection Neuro oriented x3, CN's II-XII intact bilaterally and no sensory deficits noted Sensorium / Orientation: alert Motor Exam: strength 5/5 throughout Psych mental status grossly normal Skin Skin Narrative: There are mild diffuse urticaria noted. There are no vesicles or pustules. There is no petechia noted. There is no involvement of mucous membranes. There is no sloughing of the skin. MDM MDM MDM Narrative Medical decision making narrative: Smoking cessation was discussed. Patient's blood pressure is not to the level that needs evaluated for endorgan damage. Patient was given a prescription for prednisone. Patient was given her first dose here. Patient was instructed to continue Benadryl as needed for any hives or itching. Patient was instructed to follow-up with her primary care physician in 5 to 7 days. Patient understood and was agreeable with the plan. All questions were answered. Discharge Plan Triage Chief Complaint: Hypertension Other Complaint: Allergic Reaction ED Provider: Adolph Daly Dx/Rx/DC Orders Clinical Impression: Urticaria, Tobacco use, Hypertension Instructions: ED Hives (Adult) Prescriptions: Continued prednisone 20 mg tablet 40 mg PO DAILY Qty: 8 0RF No Action sertraline [Zoloft] 100 MG tablet 100 mg PO DAILY Zyrtec 10 MG capsule 10 mg PO DAILY norgestimate-ethinyl estradiol 0.18/0.215/0.25 mg-35 mcg (28) tablet 1 tab PO DAILY epinephrine [EpiPen 2-Rudi] 0.3 mg/0.3 mL auto-injector 0.3 mg IM Q15M PRN (Reason: anaphylaxis) Qty: 2 0RF aripiprazole 5 mg tablet 2.5 mg PO QHS dextroamphetamine-amphetamine 30 mg tablet 30 mg PO BID hydrochlorothiazide 25 mg tablet 25 mg PO DAILY labetalol 100 mg tablet 100 mg PO Q12H lisinopril 20 mg tablet 20 mg PO DAILY losartan 25 mg tablet 25 mg PO DAILY Primary Care Provider: Sanam Davis Referrals: Sanam Davis, [facility] [Primary Care Provider] - 5-7 Days Disposition Disposition: Home, Self Care
[2024-01-20] MEDS: predniSONE 20 MG Tablet 40 MG PO (13:42)
[2024-01-20 13:44] VITALS: BP 140/79; PULSE 80; RESP 16; TEMP 36.3; O2SAT 98
== END 2024-01-20 13:45 | disposition home or self-care (01) ==
PROVIDERS: Emergency Provider Emergency Medicine; PCP Nurse Practitioner Family; Visit Provider Emergency Medicine
DX: L50.9 Urticaria, unspecified (principal); F17.210 Nicotine dependence, cigarettes, uncomplicated; I10 Essential (primary) hypertension; Z79.899 Other long term (current) drug therapy; F41.9 Anxiety disorder, unspecified; F32.A Depression, unspecified; Z79.3 Long term (current) use of hormonal contraceptives
CPT/HCPCS: 99283